=== PATIENT | male | born 1960 | race Caucasian/White ===

== ENCOUNTER 2019-12-11 15:26 | Emergency (ER) | payer OTHER, SELFPAY ==
[2019-12-11 15:27] VITALS: BP 133/76; PULSE 96; RESP 24; TEMP 36.4; O2SAT 96; BMI 33.4
--- NOTE | 2019-12-11 16:03 | CT_ITS ---
STUDY: CT MAXILLOFACIAL SINUSES REASON FOR EXAM: Male, 59 years old. SOB, COUGH, CHRONIC SINUSITIS,SINUS SURGERY X 3 RADIATION DOSAGE (If Supplied By Facility): CTDIvol = ( 33.06 ) mGy, DLP = ( 796.66 ) mGycm TECHNIQUE: The patient was scanned in a multi detector CT scanner. High resolution axial imaging was performed without the administration of intravenous contrast material. Sagittal and coronal images were reconstructed. Individualized dose optimization techniques were used for this CT. COMPARISON: None. FINDINGS: FRONTAL SINUSES: Normal development, near complete consolidation. ETHMOIDAL SINUSES: Extensive ethmoidectomies. Extensive opacification. MAXILLARY SINUSES: Bilateral medial antrectomies and bilateral anterior wall ostomies. Extensive mucosal thickening. SPHENOIDAL SINUSES: Marked mucosal thickening. There has been bilateral resection of the superior and middle turbinates. There is prominent soft tissue density filling most of the nasal passages. The visualized osseous structures are normal. The visualized bilateral orbital contents are normal. CT/Sinus/Facial Bone IMPRESSION: Extensive bilateral postsurgical changes of the ethmoids and maxillary sinuses. Marked diffuse mucosal thickening throughout the sinuses without air-fluid levels. Electronically Signed: Abelardo Brooks MD at 17:10 EDT , Service support ,
[2019-12-11 16:15] VITALS: PULSE 86; RESP 20
[2019-12-11] MEDS: Ipratropium/Albuterol Sulfate 3 ML AMPUL.NEB INHALATION (16:15)
[2019-12-11] MEDS: Albuterol 2.5 MG/3 ML VIAL.NEB. INHALATION ×2 (16:15→17:39)
[2019-12-11] MEDS: predniSONE 20 MG Tablet 60 MG PO (16:18)
[2019-12-11 16:40] LABS: Absolute Lymphocyte Count 1.64 X10^3/uL (0.83-4.51); Absolute Neutrophil Count 5.8 X10^3/uL (2.0-7.7); Basophil# 0.03 X10^3/uL; Basophil% 0.4 % (0-1); Eosinophil# 0.16 X10^3/uL; Eosinophils% 1.9 % (0-5); Hematocrit 40.1 % (40-54); Hemoglobin 13.1 g/dL (13.0-16.5); Lymphocyte # 1.64 X10^3/ul (4.0); Lymphocyte % 19.9 % (19-41); Mean Corp Hgb Conc 32.7 g/dL (32-36); Mean Corpuscular Hgb 31.9 pg (27.0-32.0); Mean Corpuscular Volume 97.6 fL (80-94); Mean Platelet Vol. 9.9 fl (6.2-12.0); Monocyte# 0.62 X10^3/uL; Monocyte% 7.5 % (0-10); NRBC Flagged by Analyzer 0 % (0-5); Neutrophil # 5.76 X10^3/uL (2.7-7.7); Neutrophil % 69.9 % (47-70); Platelet Count 248 K/mm3 (150-450); RBC Distribution Width CV 12.6 % (11.6-14.6); Red Blood Count 4.11 M/mm3 (4.6-6.2); White Blood Count 8.2 K/mm3 (4.4-11.0)
--- NOTE | 2019-12-11 16:40 | RAD_ITS ---
STUDY: X-RAY CHEST REASON FOR EXAM: Male, 59 years old. cough,wheezing,hemoptysis TECHNIQUE: Frontal and lateral views of the chest. COMPARISON: None. FINDINGS: There is hyperinflation of the lungs consistent with chronic obstructive lung disease (COPD). No infiltrates or effusions. There is no demonstrated pleural abnormality. Normal size heart. Normal mediastinum and luisa. Normal visualized pulmonary arteries. Normal visualized aortic arch and descending thoracic aorta. Normal visualized thoracic spine. Normal visualized ribs, clavicles, and shoulders. There is no demonstrated abnormality of the visualized soft tissue structures of the upper abdomen. RAD/Chest PA and Lateral IMPRESSION: There are findings consistent with COPD. There is no evidence of acute chest disease. Electronically Signed: Abelardo Brooks MD at 17:11 EDT , Service support ,
[2019-12-11 17:02] LABS: Anion Gap 7 (5-15); BUN 21 mg/dL (7-18); BUN/Creat Ratio 14.2 RATIO (10-20); Calcium,Total 8.8 mg/dL (8.5-10.1); Chloride 101 mmol/L (98-107); Creatinine, Serum 1.48 mg/dL (0.70-1.30); EST Glomerular Filtration Rate 52 mL/min (>60); Est Glom Filt Rate - Afr Amer 62 mL/min (>60); Estimated Creatinine Clearance 51.99 ml/min; Glucose 128 mg/dL (74-106); Potassium 5.4 mmol/L (3.5-5.1); Sodium Level 136 mmol/L (136-145)
--- NOTE | 2019-12-11 17:20 | ED.DCSUM_ITS ---
History of Present Illness Chief Complaint: Shortness of Breath Informant: Patient, Significant Other Onset: Weeks Context: Sudden Onset Timing: Continuous, Waxes and wanes Quality: Shortness of breath, wheezing, hemoptysis, chronic sinus infection Location: Upper respiratory Current Severity: Mild Maximum Severity: Moderate Worsened by: Exertion Relieved by: Nothing Associated Symptoms: Chills Narrative: Patient is a 59-year-old male who has history of COPD with bronchospasm, reported chronic sinusitis who presents with pain by his left brow. He denies headache. He denies double vision, blurred vision loss of vision. He denies photophobia. Denies neck pain or neck stiffness. He denies rhinorrhea, congestion or postnasal drainage. He denies sore throat. Denies change in smell or taste. The cough has been productive of white-colored sputum for approximate 3 months. Occasionally he notes blood in his sputum. He denies history of PE or DVT. He denies leg pain, swelling discoloration. He denies anginal equivalent symptoms. He denies GI symptoms. He is not on an anticoagulant. Prior similar symptoms: Yes Recent Illness/Hospitalization: Yes - Past Medical History (1) History of COPD Status: Chronic (2) History of nasal polyp Status: Acute (3) History of diverticulosis Status: Acute (4) History of gout Status: Acute (5) History of hypertension Status: Acute Past Medical History - Allergies and Home Meds Allergies/Adverse Reactions: Allergies aspirin Allergy (Verified 12/11/19 15:27) Anaphylaxis Cephalosporins Allergy (Verified 12/11/19 15:27) Other nitroglycerin Allergy (Verified 12/11/19 15:27) Other Primary Care Physician: Christine Almanzar NP-C [Primary Care Provider] - Prior records reviewed: Yes Surgical History: noncontributory Lives: Spouse/ Significant Other Smoking Status: Former smoker Alcohol: Rare Drugs: None Review of Systems General: Reports: Chills. Denies: Fever, Malaise, Subjective Eyes: Reports: - - Denies photophobia. Denies: Visual changes - bilaterally, Blurred Vision - bilaterally, Diplopia ENT: Reports: - - Sinusitis with pain over left frontal sinus. Denies: Bilateral ear pain, Rhinorrhea, Sore throat Cardiovascular: Denies: Chest pain, Palpitations Respiratory: Reports: Dyspnea, Cough, Sputum, Dyspnea on exertion. Denies: Orthopnea, Paroxysmal nocturnal dyspnea Gastrointestinal: Denies: Abdominal pain, Nausea, Vomiting, Diarrhea, Melena, Hematochezia Genitourinary: Denies: Dysuria, Hematuria, Frequency Musculoskeletal: Denies: Myalgias, Arthralgias, Neck pain, Back pain, Swelling, Extremity Pain Skin: Denies: Rash, Wounds Neurological: Denies: Headache, Weakness, Numbness Hematologic: Denies: Easy bruising, Easy bleeding Physical Exam Vital Signs/Narrative: Vital Signs Temp Pulse Resp BP Pulse Ox 12/11/19 16:15 86 20 H 12/11/19 15:27 97.6 F L 96 24 H 133/76 H 96 Inital Vital Signs reviewed: Yes General: Well nourished, Well developed, No Acute Distress Head: Normocephalic, Atraumatic Eyes: Perrl, EOMI ENT: Moist mucous membranes, No rhinorrhea, TM's clear, Sinus tenderness - Left frontal sinus, - - Nasal mucosa appears pale and sow. Neck: Supple, Nontender Cardiovascular: Regular rate, Regular rhythm, No murmurs, Normal S1, Normal S2 Respiratory: No distress, CTA bilaterally, Chest nontender Abdomen: Soft, Nontender, Nondistended, Normal bowel sounds Back: Nontender, Normal Inspection Extremities: Nontender, No edema. Negative for: Tenderness Skin: Normal color, No rash, No Trauma. Negative for: Cyanosis, Diaphoresis, Jaundice Neurological: Alert, Oriented x3, Cranial nerves II-XII grossly intact, Normal Strength, Normal Sensation Psychological: Normal affect, Normal Mood Diagnostic/Tx/Re-eval Chest X-Ray - ED: 2 View, Read by ED Physician, Normal, Heart, Mediastinum, Bony Structures, No Acute Disease, Chronic Changes, - - Slight hyper aeration and chronic changes due to COPD. Impressions Facial/Sinus 12/11/19 16:03 IMPRESSION: Extensive bilateral postsurgical changes of the ethmoids and maxillary sinuses. Marked diffuse mucosal thickening throughout the sinuses without air-fluid levels. Electronically Signed: Abelardo Brooks MD at 17:10 EDT , Service support , Chest X-Ray 12/11/19 16:40 IMPRESSION: There are findings consistent with COPD. There is no evidence of acute chest disease. Electronically Signed: Abelardo Brooks MD at 17:11 EDT , Service support , 12/11/19 16:03 CT Sinus [Sinus/Facial Bone] [CT] Stat 12/11/19 16:40 Chest PA and Lateral [RAD] Stat Laboratory Results 12/11/19 12/11/19 16:20 16:20 WBC 8.2 RBC 4.11 L Hgb 13.1 Hct 40.1 MCV 97.6 H MCH 31.9 MCHC 32.7 RDW Std Deviation 45.0 H RDW Coeff of Kari 12.6 Plt Count 248 MPV 9.9 Immature Gran % (Auto) 0.400 Neut % (Auto) 69.9 Lymph % (Auto) 19.9 Petroleum % (Auto) 7.5 Eos % (Auto) 1.9 Baso % (Auto) 0.4 Absolute Neuts (auto) 5.8 Absolute Lymphs (auto) 1.64 Nucleated RBC % 0 Sodium 136 Potassium 5.4 H Chloride 101 Carbon Dioxide 28.0 Anion Gap 7 BUN 21 H Creatinine 1.48 H Estim Creat Clear Calc 51.99 Est GFR (MDRD) Af Amer 62 Est GFR (MDRD) Non-Af 52 L BUN/Creatinine Ratio 14.2 Glucose 128 H Calcium 8.8 Patient was reassessed. He is no longer wheezing. He was informed he does not have sinusitis. He was informed it is my medical opinion that he has allergic rhinitis. ED Disposition - Plan for ED Patient: Disposition: Home or Assisted Living Diagnosis: Asthma exacerbation in COPD, Allergic rhinitis Prescriptions: Prednisone [Deltasone] 40 mg PO DAILY #10 tab Transmission Status: Pending to [facility] Fluticasone 0.05% [Flonase Nasal [place]] 1 spray NASAL BID #1 bottle Transmission Status: Pending to [facility] Referrals: Christine Almanzar NP-C [Primary Care Provider] - 3-5 Days if not improving
--- NOTE | 2019-12-11 18:48 | ED.VISSUMM ---
- ER Visit Summary Date of Service: 12/11/19 Chief Complaint: [] History of Present Illness: The patient is a 59 M [] Physical Examination: [] Test Results: [] Emergency Department Course and Treatment: [] Treatment Plan: [] Disposition: [] Impression: [] This note was generated with [employer] dictation software. It may contain incorrect words, spelling, and punctuation that were not noted in review of the chart prior to signing ED Disposition - Plan for ED Patient: Disposition: Home or Assisted Living Diagnosis: Asthma exacerbation in COPD, Allergic rhinitis Instructions: ED COPD Flare, ED NASAL ALLERGY Prescriptions: Prednisone [Deltasone] 40 mg PO DAILY #10 tab Transmission Status: Sent to [facility] Fluticasone 0.05% [Flonase Nasal [place]] 1 spray NASAL BID #1 bottle Transmission Status: Sent to [facility] Referrals: Christine Almanzar NP-C [Primary Care Provider] - 3-5 Days if not improving
[2019-12-11 18:58] VITALS: BP 127/69; PULSE 71; RESP 18; O2SAT 99
== END 2019-12-11 18:59 | disposition home or self-care (01) ==
PROVIDERS: Emergency Provider Emergency Medicine; PCP Nurse Practitioner Family
DX: J45.901 Unspecified asthma with (acute) exacerbation (principal); J44.1 Chronic obstructive pulmonary disease with (acute) exacerbation; R04.2 Hemoptysis; I10 Essential (primary) hypertension; M10.9 Gout, unspecified; Z79.899 Other long term (current) drug therapy; Z87.891 Personal history of nicotine dependence
CPT/HCPCS: 70486; 71046; 80048; 85025; 94640; 99285; A4216

== ENCOUNTER → 2020-12-17 14:53 | Outpatient (CLI) | payer OTHER, SELFPAY ==
--- NOTE | 2020-12-17 14:56 | RAD_ITS ---
STUDY: X-RAY CHEST REASON FOR EXAM: Male, 60 years old. SOB TECHNIQUE: PA and lateral views of the chest. COMPARISON: Comparison is made with prior study dated 12/11/2019. FINDINGS: There is hyperinflation of the lungs consistent with chronic obstructive lung disease (COPD). There is no demonstrated pleural abnormality. Normal size heart. Normal mediastinum and luisa. Normal visualized pulmonary arteries. Normal visualized aortic arch and descending thoracic aorta. There is demineralization of the osseous structures. Normal visualized ribs, clavicles, and shoulders. There is no demonstrated abnormality of the visualized soft tissue structures of the upper abdomen. RAD/Chest PA and Lateral IMPRESSION: Hyperinflation. The lungs are clear. Electronically Signed: Ceasar Rodriguez MD at 15:25 EDT , Service support ,
[2020-12-17 17:25] LABS: Absolute Neutrophil Count 4.4 X10^3/uL (2.0-7.7); Basophil# 0.06 X10^3/uL; Basophil% 0.9 % (0-1); Eosinophil# 0.18 X10^3/uL; Eosinophils% 2.6 % (0-5); Hematocrit 40.3 % (40-54); Hemoglobin 13.7 g/dL (13.0-16.5); Lymphocyte % 25.8 % (19-41); Mean Corpuscular Hgb 32.1 pg (27.0-32.0); Mean Corpuscular Volume 94.4 fL (80-94); Monocyte# 0.58 X10^3/uL; Monocyte% 8.3 % (0-10); NRBC Flagged by Analyzer 0 % (0-5); Neutrophil # 4.35 X10^3/uL (2.7-7.7); Neutrophil % 62.1 % (47-70); Platelet Count 242 K/mm3 (150-450); RBC Distribution Width CV 12.9 % (11.6-14.6); RBC Distribution Width SD 43.8 fl (35.1-43.9); Red Blood Count 4.27 M/mm3 (4.6-6.2)
[2020-12-17 17:46] LABS: ALB/GLOB Ratio 1.2 RATIO (0.9-2.4); AST(SGOT) 21 U/L (15-37); Alanine Aminotransfer ALT/SGPT 33 U/L (16-61); Albumin, Serum 3.9 g/dL (3.2-5.0); Alkaline Phosphatase 75 U/L (45-117); Anion Gap 7 (5-15); BUN 16 mg/dL (7-18); BUN/Creat Ratio 11.8 RATIO (10-20); Calcium,Total 8.7 mg/dL (8.5-10.1); Chloride 103 mmol/L (98-107); Cholesterol 181 mg/dL (200); Creatinine, Serum 1.36 mg/dL (0.70-1.30); EST Glomerular Filtration Rate 57 mL/min (>60); Est Glom Filt Rate - Afr Amer 69 mL/min (>60); Globulin 3.3 g/dL (2.2-4.2); Glucose 99 mg/dL (74-106); High Density Lipoprotein 58 mg/dL; Potassium 4.2 mmol/L (3.5-5.1); Protein, Total 7.2 g/dL (6.4-8.2); Sodium Level 139 mmol/L (136-145); T4 Free Direct 0.93 ng/dL (0.76-1.46); Thyroid Stim Hormone (TSH) 0.85 uIU/mL (0.358-3.74); Triglycerides 469 mg/dL; Uric Acid 6.6 mg/dL (3.5-7.2)
[2020-12-17 18:00] LABS: Microalbumin:Creatinine Ratio 74.8 mg/g CRE (<30 mg/g CRE)
[2020-12-19 08:53] LABS: Thyroid Peroxidase AB < 9 IU/mL (0-34)
[2020-12-20 09:26] LABS: Hepatitis C Antibody Non-Reactive (Nonreactive)
== END ==
PROVIDERS: PCP Family Medicine; Referring Provider Family Medicine; Visit Provider Family Medicine
DX: R06.02 Shortness of breath (principal); E04.1 Nontoxic single thyroid nodule; E78.5 Hyperlipidemia, unspecified; I10 Essential (primary) hypertension; M10.9 Gout, unspecified
CPT/HCPCS: 36415; 71046; 80053; 80061; 82043; 82570; 84439; 84443; 84550; 85025; 86376; 86803

== ENCOUNTER → 2020-12-23 08:04 | Outpatient (CLI) | payer OTHER, SELFPAY ==
--- NOTE | 2020-12-23 09:06 | US_ITS ---
STUDY: THYROID ULTRASOUND REASON FOR EXAM: Male, 60 years old. Palpably enlarged thyroid TECHNIQUE: Ultrasound evaluation of the thyroid was performed with real-time and static sow-scale imaging. COMPARISON: None. FINDINGS: RIGHT LOBE: The right lobe of the thyroid gland measures 4.8 x 2.4 x 2.0 cm. There is a homogeneous echotexture. There are no demonstrated solid, cystic or complex lesions. LEFT LOBE: The left lobe of the thyroid gland measures 4.1 x 2.0 x 1.9 cm. There is a homogeneous echotexture. There are no demonstrated solid, cystic or complex lesions. ISTHMUS: The isthmus measures 6 mm. The regional lymph nodes are normal. US/Thyroid IMPRESSION: Borderline enlarged right thyroid lobe, no sonographic evidence of suspicious solid nodule or cyst Electronically Signed: Francois Lomax MD at 11:01 EDT , Service support ,
--- NOTE | 2020-12-23 14:20 | PFTCOMP_ITS ---
COMPLETE PULMONARY FUNCTION TEST INTERPRETATION Brief HPI: Patient is a 60 year old male, currently under the care of Dr. Arita, who presents to [facility] for complete pulmonary function tests secondary to diagnosis of asthma. Respiratory therapist reports good effort and reproducible results. Interpretation: Forced expiration spirometry shows a severe large airways obstructive ventilatory defect with an FEV1 of 47% predicted. There is a significant bronchodilator response in FVC by strict ATS criteria. Spirograms are of good quality and plateau slowly, indicating slowly emptying areas of the lungs. The respiratory flow volume loop shows decreased expiratory flow rates at all lung volumes consistent with airway obstruction. Lung volumes by body plethysmography show a decreased total lung capacity at 4.92 L, 80% predicted. All other lung volumes are reduced symmetrically. Diffusion capacity by carbon monoxide is normal at 107% predicted. The airway resistance is elevated. No previous pulmonary function tests were available for review. Impression: Partially reversible severe large airways mixed ventilatory defect with preserved diffusion capacity.
== END ==
PROVIDERS: PCP Family Medicine; Referring Provider Family Medicine; Visit Provider Family Medicine
DX: E04.1 Nontoxic single thyroid nodule (principal); J45.909 Unspecified asthma, uncomplicated
CPT/HCPCS: 76536; 94060; 94726; 94729

== ENCOUNTER → 2020-12-27 12:52 | Outpatient (CLI) | payer OTHER, SELFPAY ==
--- NOTE | 2020-12-27 12:58 | ECHOD_ITS ---
Reason For Study: SOB Procedure This was a 2D Doppler, Color Flow transthoracic echocardiogram. Exam performed in department. Left Ventricle Normal LV size. Left ventricular systolic function is normal. The estimated ejection fraction is 60 %. Normal diastology for age. No regional wall motion abnormalities noted. Right Ventricle Normal RV size. Normal systolic function. Atria The left atrium is mildly enlarged. Normal right atrium. Mitral Valve Normal mitral valve. Tricuspid Valve Normal tricuspid valve. Mild tricuspid valve insufficiency. Pulmonary artery systolic pressure is 33 mmHg. Aortic Valve Normal aortic valve. Trisinus/trileaflet aortic valve. Pulmonic Valve Normal pulmonic valve. Great Vessels Normal aortic root. The pulmonary artery is normal size. Normal inferior vena cava. Pericardium/Pleural No pericardial effusion. MMode/2D Measurements & Calculations LVIDd: 4.9 cm IVSd: 1.0 cm Ao root diam: 3.3 cm LVIDs: 2.9 cm LVPWd: 1.2 cm RVDd: 3.0 cm FS: 40.2 % LAV(MOD-bp): 65.7 ml LVAd ap4: 28.9 cm2 SV(MOD-sp4): 51.0 ml LAV(MOD-bp) Indexed: 30.9 ml/m2 LVLd ap4: 8.7 cm LAV(MOD-sp2): 46.5 ml EDV(MOD-sp4): 83.7 ml LAV(MOD-sp4): 72.6 ml EDV(sp4-el): 81.6 ml LVAs ap4: 16.2 cm2 LVLs ap4: 7.4 cm ESV(MOD-sp4): 32.7 ml ESV(sp4-el): 30.0 ml EF(MOD-sp4): 61.0 % EF(sp4-el): 63.2 % SV(sp4-el): 51.6 ml LA A4 area: 24.7 cm2 LA dimension(2D): 4.6 cm RA A4 area: 12.0 cm2 Doppler Measurements & Calculations MV E max siddharth: 82.7 cm/sec Lat Peak E' Siddharth: 9.0 cm/sec Med Peak E' Siddharth: 9.6 cm/sec MV A max siddharth: 56.2 cm/sec E/E' lat: 9.2 E/E' med: 8.6 MV E/A: 1.5 Ao V2 max: 148.2 cm/sec LV V1 max: 120.8 cm/sec PA V2 max: 98.1 cm/sec Ao max P.8 mmHg LV V1 max P.8 mmHg Ao V2 mean: 103.6 cm/sec Ao mean P.7 mmHg Ao V2 VTI: 29.1 cm TR max siddharth: 270.1 cm/sec TR max P.2 mmHg ECHO/Echo Complete Interpretation Summary Normal LV size. Left ventricular systolic function is normal. The estimated ejection fraction is 60 %. Normal diastology for age. Mild tricuspid valve insufficiency. Pulmonary artery systolic pressure is 33 mmHg. Ordering Physician: Justin Arita Referring Physician: Justin Arita Performed By: Gabriela Newton RDCS, RVT
== END ==
PROVIDERS: PCP Family Medicine; Referring Provider Family Medicine; Visit Provider Family Medicine
DX: R06.02 Shortness of breath (principal)
CPT/HCPCS: 93306

== ENCOUNTER → 2021-01-19 12:32 | Outpatient (CLI) | payer OTHER, SELFPAY ==
[2021-01-19 15:47] LABS: Anion Gap 4 (5-15); BUN 17 mg/dL (7-18); BUN/Creat Ratio 13.4 RATIO (10-20); Chloride 101 mmol/L (98-107); Creatinine, Serum 1.27 mg/dL (0.70-1.30); EST Glomerular Filtration Rate 61 mL/min (>60); Est Glom Filt Rate - Afr Amer 74 mL/min (>60); Glucose 109 mg/dL (74-106); Potassium 4.2 mmol/L (3.5-5.1); Sodium Level 135 mmol/L (136-145)
== END ==
PROVIDERS: PCP Family Medicine; Referring Provider Family Medicine; Visit Provider Family Medicine
DX: R94.4 Abnormal results of kidney function studies (principal)
CPT/HCPCS: 36415; 80048

== ENCOUNTER → 2021-06-29 14:03 | Outpatient (CLI) | payer OTHER, SELFPAY ==
[2021-06-29 14:20] LABS: Absolute Lymphocyte Count 1.52 X10^3/uL (0.83-4.51); Absolute Neutrophil Count 4.5 X10^3/uL (2.0-7.7); Basophil# 0.03 X10^3/uL; Basophil% 0.4 % (0-1); Eosinophil# 0.27 X10^3/uL; Eosinophils% 3.9 % (0-5); Hemoglobin 13.1 g/dL (13.0-16.5); Lymphocyte # 1.52 X10^3/ul (0.83-4.51); Lymphocyte % 22.2 % (19-41); Mean Corp Hgb Conc 34.5 g/dL (32-36); Mean Corpuscular Hgb 32.4 pg (27.0-32.0); Mean Corpuscular Volume 94.1 fL (80-94); Mean Platelet Vol. 9.2 fl (6.2-12.0); Monocyte% 7.3 % (0-10); NRBC Flagged by Analyzer 0 % (0-5); Neutrophil % 65.9 % (47-70); Platelet Count 239 K/mm3 (150-450); RBC Distribution Width CV 12.4 % (11.6-14.6); RBC Distribution Width SD 43.3 fl (35.1-43.9); Red Blood Count 4.04 M/mm3 (4.6-6.2); White Blood Count 6.8 K/mm3 (4.4-11.0)
[2021-07-04 22:06] LABS: Alternaria alternata <0.10 kU/L (Class 0); Bermuda Grass <0.10 kU/L (Class 0); Bluegrass, Kentucky <0.10 kU/L (Class 0); Cat Hair/Dander, Standard <0.10 kU/L (Class 0); D farinae Mite <0.10 kU/L (Class 0); D pteronyssinus <0.10 kU/L (Class 0); Dog Epithelia <0.10 kU/L (Class 0); Elm, American White <0.10 kU/L (Class 0); Oak, White <0.10 kU/L (Class 0); Plantain, English <0.10 kU/L (Class 0); Ragweed, Short/Common <0.10 kU/L (Class 0)
[2021-07-05 17:45] LABS: Mouse Urine <0.10 kU/L (Class 0)
[2021-07-06 02:06] LABS: Aspirgillus flavus Negative (Neg:<1:1); Aspirgillus fumigatus Negative (Neg:<1:1); Aspirgillus niger Negative (Neg:<1:1)
[2021-07-06 14:09] LABS: Immunoglobulin E 6 IU/mL (6-495)
== END ==
PROVIDERS: PCP Family Medicine; Referring Provider Internal Medicine Critical Care Medicine; Visit Provider Internal Medicine Critical Care Medicine
DX: J45.909 Unspecified asthma, uncomplicated (principal)
CPT/HCPCS: 36415; 82785; 85025; 86003; 86606

== ENCOUNTER 2021-08-08 20:00 | Outpatient (CLI) | payer OTHER, SELFPAY | END 2021-08-08 23:59 | disposition home or self-care (01) | PROVIDERS: PCP Family Medicine; Visit Provider Internal Medicine Critical Care Medicine | DX: G47.33 Obstructive sleep apnea (adult) (pediatric) (principal) | CPT/HCPCS: 95811 ==

== ENCOUNTER 2021-08-09 10:31 | Outpatient (CLI) | payer OTHER, SELFPAY ==
[2021-08-09 10:37] LABS: Bacteria 0 SEEN /hpf (None Seen); Mucous, Urine 0 SEEN /hpf (<or=2+); Red Blood Cells-Urine 0 SEEN /hpf (0-5); Squamous Epithelial Cells - UA 0 SEEN /hpf (0-5); White Blood Cells 0 SEEN /hpf (0-5)
[2021-08-09 12:12] LABS: Color, Urine Yellow (Yellow); Glucose, Dipstick Normal (Normal); Ketone-Dipstick Negative (Negative); Leukocyte Esterase-Dipstick Negative /ul (Negative); Nitrite-Dipstick Negative (Negative); Occult Blood-Urine Negative /ul (Negative); Protein-Dipstick 15 mg/dl (Negative); Urine Bilirubin Dipstick Negative (Negative); Urine Clarity Clear (Clear); Urine Urobilinogen Normal (Normal)
[2021-08-09 12:14] LABS: Absolute Lymphocyte Count 1.88 X10^3/uL (0.83-4.51); Absolute Neutrophil Count 3.4 X10^3/uL (2.0-7.7); Basophil# 0.04 X10^3/uL; Basophil% 0.7 % (0-1); Eosinophil# 0.32 X10^3/uL; Eosinophils% 5.3 % (0-5); Hematocrit 38.3 % (40-54); Hemoglobin 13.4 g/dL (13.0-16.5); Lymphocyte # 1.88 X10^3/ul (0.83-4.51); Lymphocyte % 30.9 % (19-41); Mean Corpuscular Hgb 32.8 pg (27.0-32.0); Mean Corpuscular Volume 93.9 fL (80-94); Mean Platelet Vol. 9.6 fl (6.2-12.0); Monocyte# 0.46 X10^3/uL; Monocyte% 7.6 % (0-10); NRBC Flagged by Analyzer 0 % (0-5); Neutrophil # 3.36 X10^3/uL (2.7-7.7); Neutrophil % 55.2 % (47-70); Platelet Count 214 K/mm3 (150-450); RBC Distribution Width CV 12.2 % (11.6-14.6); RBC Distribution Width SD 42.5 fl (35.1-43.9); Red Blood Count 4.08 M/mm3 (4.6-6.2); White Blood Count 6.1 K/mm3 (4.4-11.0)
[2021-08-09 13:41] LABS: ALB/GLOB Ratio 1.1 RATIO (0.9-2.4); AST(SGOT) 19 U/L (15-37); Alanine Aminotransfer ALT/SGPT 35 U/L (16-61); Albumin, Serum 3.7 g/dL (3.2-5.0); Alkaline Phosphatase 70 U/L (45-117); Anion Gap 8 (5-15); BUN 18 mg/dL (7-18); BUN/Creat Ratio 15.1 RATIO (10-20); Chloride 102 mmol/L (98-107); Cholesterol 144 mg/dL (200); Creatinine, Serum 1.19 mg/dL (0.70-1.30); EST Glomerular Filtration Rate 66 mL/min (>60); Est Glom Filt Rate - Afr Amer 80 mL/min (>60); Globulin 3.4 g/dL (2.2-4.2); Glucose 105 mg/dL (74-106); High Density Lipoprotein 50 mg/dL; Protein, Total 7.1 g/dL (6.4-8.2); Sodium Level 137 mmol/L (136-145); Thyroid Stim Hormone (TSH) 1.48 uIU/mL (0.358-3.74); Triglycerides 300 mg/dL; Uric Acid 5.6 mg/dL (3.5-7.2); Very Low Density Lipoprotein 60 mg/dL (5-40)
== END 2021-08-09 23:59 | disposition home or self-care (01) ==
LOC: MTLAB 10:32
PROVIDERS: PCP Family Medicine; Referring Provider Family Medicine; Visit Provider Family Medicine
DX: E78.5 Hyperlipidemia, unspecified (principal); M10.9 Gout, unspecified; I10 Essential (primary) hypertension
CPT/HCPCS: 36415; 80053; 80061; 81001; 84443; 84550; 85025

== ENCOUNTER 2021-08-29 12:59 | Outpatient (CLI) | payer OTHER, SELFPAY ==
--- NOTE | 2021-08-29 14:18 | PFTCOMP ---
COMPLETE PULMONARY FUNCTION TEST INTERPRETATION Brief HPI: Patient is a 61 year old male, currently under the care of myself, who presents to [facility] for complete pulmonary function tests secondary to diagnosis of asthma. Respiratory therapist reports good effort and reproducible results. Interpretation: Forced expiration spirometry shows a moderately severe large airways obstructive ventilatory defect with an FEV1 of 53% predicted. There is no significant bronchodilator response by strict ATS criteria. Spirograms are of good quality and plateau slowly, indicating slowly emptying areas of the lungs. The respiratory flow volume loop shows decreased expiratory flow rates at all lung volumes consistent with airway obstruction. Lung volumes by body plethysmography show a normal total lung capacity at 5.78 L, 94% predicted. FRC and RV are elevated out of proportion. Lung volume measurements are consistent with air-trapping. Diffusion capacity by carbon monoxide is normal at 97% predicted. The airway resistance is elevated. Compared to previous pulmonary function tests from 12/23/2020, there has been mild improvement in FEV1, but worsening air trapping. Impression: Irreversible moderately severe large airways obstructive ventilatory defect with relatively preserved diffusing capacity, resulting in air trapping.
== END 2021-08-29 23:59 | disposition home or self-care (01) ==
LOC: PSN 12:59
PROVIDERS: PCP Family Medicine; Referring Provider Internal Medicine Critical Care Medicine; Visit Provider Internal Medicine Critical Care Medicine
DX: J45.909 Unspecified asthma, uncomplicated (principal)
CPT/HCPCS: 94060; 94726; 94729

== ENCOUNTER 2021-09-08 08:04 | Outpatient (CLI) | payer OTHER, SELFPAY ==
[2021-09-08 08:15] VITALS: PULSE 100; PULSE 102; PULSE 83; PULSE 87; PULSE 91; O2SAT 92; O2SAT 93; O2SAT 94; O2SAT 95
--- NOTE | 2021-09-09 13:25 | PCM.PSN.6M ---
PSN 6 Minute Walk Test 6 Minute Walk Test 6 Minute Walk Test: 6 Minute Walk Test PSN:6-Minute Walk Test Start: 09/08/21 08:28 Freq: Status: Active Protocol: RESP.6MINW Document 09/08/21 08:15 EW (Rec: 09/08/21 08:31 EW [id number]) 6 Minute Walk Test Date Performed 09/08/21 Time Performed 08:15 Height 5 ft 8 in Weight: 99.79 kg Weight in Pounds 220.[address]: Link Dotson Assistive device used: None Pre-test Oxygen Delivery Method Room Air Pulse Ox (%) 94 Pulse Rate (60-100 beats/min) 83 Dyspnea Nando Scale (0-10) 1 Exertion Nando Scale (6-20) 6 1st minute Oxygen Delivery Method Room Air Pulse Ox (%) 94 Pulse Rate (60-100 beats/min) 91 2nd minute Oxygen Delivery Method Room Air Pulse Ox (%) 93 Pulse Rate (60-100 beats/min) 87 3rd minute Oxygen Delivery Method Room Air Pulse Ox (%) 92 Pulse Rate (60-100 beats/min) 102 H 4th minute Oxygen Delivery Method Room Air Pulse Ox (%) 92 Pulse Rate (60-100 beats/min) 100 5th minute Oxygen Delivery Method Room Air Pulse Ox (%) 93 Pulse Rate (60-100 beats/min) 100 6th minute Oxygen Delivery Method Room Air Pulse Ox (%) 93 Pulse Rate (60-100 beats/min) 102 H Post-test Oxygen Delivery Method Room Air Pulse Ox (%) 95 Pulse Rate (60-100 beats/min) 87 Dyspnea Nando Scale (0-10) 11 Exertion Nando Scale (6-20) 2 Full Laps Walked 20 Partial Lap, Number of Tiles Walked 0 Total Distance Walked (ft) 1180 Interpretation Interpretation: The patient ambulated 1180 feet over the course of 6 minutes beginning on room air without assistive devices. Pretesting oxygen saturation was noted to be 94% on room air. With ambulation, the dewayne oxygen saturation was 92%. There was no significant exertional oxygen desaturation. Recommendations Recommendations: There is no indication for the use of supplemental oxygen at this time.
== END 2021-09-08 23:59 | disposition home or self-care (01) ==
LOC: PSN 08:05
PROVIDERS: PCP Family Medicine; Referring Provider Internal Medicine Critical Care Medicine; Visit Provider Internal Medicine Critical Care Medicine
DX: J45.909 Unspecified asthma, uncomplicated (principal)
CPT/HCPCS: 94618

== ENCOUNTER → 2021-10-25 | Outpatient (CLI) | payer OTHER, SELFPAY ==
[2021-10-25 18:25] LABS: ALB/GLOB Ratio 1.1 RATIO (0.9-2.4); AST(SGOT) 21 U/L (15-37); Alanine Aminotransfer ALT/SGPT 36 U/L (16-61); Albumin, Serum 3.8 g/dL (3.2-5.0); Alkaline Phosphatase 62 U/L (45-117); Anion Gap 6 (5-15); BUN 18 mg/dL (7-18); BUN/Creat Ratio 14.9 RATIO (10-20); Calcium,Total 8.3 mg/dL (8.5-10.1); Chloride 102 mmol/L (98-107); Creatinine, Serum 1.21 mg/dL (0.70-1.30); EST Glomerular Filtration Rate 65 mL/min (>60); Est Glom Filt Rate - Afr Amer 78 mL/min (>60); Globulin 3.4 g/dL (2.2-4.2); Glucose 99 mg/dL (74-106); Protein, Total 7.2 g/dL (6.4-8.2); Sodium Level 137 mmol/L (136-145)
[2021-10-25 18:35] LABS: Hemoglobin A1c 5.3 % (3.8-5.6)
== END | disposition home or self-care (01) ==
LOC: MTLAB 14:17
PROVIDERS: PCP Family Medicine; Referring Provider Family Medicine; Visit Provider Family Medicine
DX: R73.09 Other abnormal glucose (principal); Z12.5 Encounter for screening for malignant neoplasm of prostate
CPT/HCPCS: 36415; 80053; 83036; 84153; G0103

== ENCOUNTER → 2022-01-20 | Outpatient (CLI) | payer OTHER, SELFPAY ==
[2022-01-20 11:14] VITALS: BP 130/72; PULSE 77; RESP 16; TEMP 36.8; O2SAT 96; BMI 34.2
[2022-01-20] MEDS: Benralizumab 30 MG/ML Syringe SC (11:20)
[2022-01-20 11:48] VITALS: BP 153/80; PULSE 80; RESP 16; TEMP 36.6; O2SAT 96
== END | disposition home or self-care (01) ==
LOC: MEDOUTP 11:03
PROVIDERS: PCP Family Medicine; Referring Provider Nurse Practitioner Acute Care; Visit Provider Nurse Practitioner Acute Care
DX: J45.50 Severe persistent asthma, uncomplicated (principal)
CPT/HCPCS: 96372; J0517

== ENCOUNTER → 2022-01-23 | Outpatient (CLI) | payer OTHER, SELFPAY ==
[2022-01-23 16:55] LABS: EGFR FINGERSTICK > 60.0000 mL/min (>60)
== END | disposition home or self-care (01) ==
LOC: MRI 15:58
PROVIDERS: PCP Family Medicine; Referring Provider Urology; Visit Provider Urology
DX: Z00.00 Encounter for general adult medical examination without abnormal findings (principal)

== ENCOUNTER → 2022-02-02 | Outpatient (CLI) | payer OTHER, SELFPAY ==
--- NOTE | 2022-02-02 | IMM_PTH ---
PATIENT: HAWK ZAYAS LOC: [facility] U#:[id number] AGE/SX: 62/M ROOM: RE02/02/[address]: Dr. Donovan Carpio MD : 1960 BED: DIS: 02/02/2022 SPEC #: [id number] RECD: 02/06/22 12:48 STATUS: CRUZ REQ #: [id number] REID: 02/02/22 00:[address]: Donovan Carpio DEPT: IMMUNOHISTOCHEMISTRY RECD BY: Paula Wall ENTERED: 02/06/22 12:49 SP TYPE: IMMUNO OTHR DR: Dr. Justin Arita MD Tissues: D - PROSTATE LEFT Procedures: P40 (add) 34BE12 (initial) PHYSICIAN & INSTITUTION [place] [id number] SPECIMEN INFORMATION: Tissue Source: D - Left prostate, apex, core biopsy Clinical Info: Elevated PSA Specimen Number: [id number] CPT code: 30465, 33102 METHODOLOGY: Deparaffinized sections of prefer/formalin-fixed tissue or PAP/DQ stained slides are incubated with monoclonal/polyclonal antibodies/oligonucleotide probes. Localization is made via biotin free immunoperoxidase method. Appropriate controls are performed and reacted as expected. Results on target cell population are indicated in the following table: RESULTS: ANTIBODY / CLONE RESULT Block D P40 (BC28) negative 34BE12 (34BE12) negative These tests were developed and their performance characteristics determined by [facility]. They may not have been cleared or approved by the U.S. Food and Drug Administration. The FDA has determined that such clearance or approval is not necessary. The above immunohistochemical/dualISH markers are ordered and reviewed by the Pathologist. INTERPRETATION: Michael Left prostate, apex, core biopsy: Adenocarcinoma. SJ:elio 02/07/2022
--- NOTE | 2022-02-02 08:00 | PROSBIL_PTH ---
PATIENT: HAWK ZAYAS LOC: [facility] U#:[id number] AGE/SX: 62/M ROOM: RE02/02/[address]: Dr. Donovan Carpio MD : 1960 BED: DIS: 02/02/2022 SPEC #: [id number] RECD: 02/02/22 16:33 STATUS: CRUZ BHAT #: [id number] REID: 02/02/22 08:[address]: Donovan Carpio DEPT: SURGICAL PATHOLOGY RECD BY: Shanna French ENTERED: 02/03/22 08:19 SP TYPE: PROST BX INOCENCIO DR: Dr. Justin Arita MD Tissues: A - PROSTATE RIGHT B - PROSTATE RIGHT C - PROSTATE RIGHT D - PROSTATE LEFT E - PROSTATE LEFT F - PROSTATE LEFT Procedures: PROSTATE BX HEADER OPERATION: Prostate biopsy PRE-OP DIAGNOSIS: Elevated PSA TISSUE SUBMITTED: A - Right apex, B - Right mid, C - Right base, D - Left apex, E - Left mid, F - Left base MICROSCOPIC DIAGNOSIS A. Right prostate, apex, core biopsy: Prostatic tissue, negative for malignancy. B. Right prostate, mid, core biopsy: Prostatic tissue, negative for malignancy. C. Right prostate, base, core biopsy: Prostatic tissue, negative for malignancy. D. Left prostate, apex, core biopsy: Prostatic adenocarcinoma. [place] grade: 3+3=6 Number of cores involved: 1/1 Proportion of tissue involved: <5% Perineural invasion: Present, focal. Greatest tumor length: 0.2 cm, discontinuous. See comment. E. Left prostate, mid, core biopsy: Prostatic adenocarcinoma. [place] grade: 4+3=7 Number of cores involved: 2/2 Proportion of tissue involved: >95% Perineural invasion: Not identified. Greatest tumor length: 0.7 cm F. Left prostate, base, core biopsy: Prostatic adenocarcinoma. [place] grade: 4+3=7 Number of cores involved: 2/2 Proportion of tissue involved: >95% Perineural invasion: Present, focal. Greatest tumor length: 0.9 cm SJ:elio 02/06/2022 COMMENT D. Immunohistochemistry ([id number]) supports the above diagnosis. Case has been reviewed in consultation with Dr. Villa who concurs with the above diagnosis. IDC:AM MICROSCOPIC DESCRIPTION Slides are reviewed. GROSS DESCRIPTION A - Received is one container designated prostate, right apex. The specimen consists of one elongated fragment of light larson-white soft tissue measuring 1 cm in length and 0.1 cm in diameter. The specimen is totally submitted in one cassette. B - Received is one container designated prostate, right mid. The specimen consists of one elongated fragment of light larson-white soft tissue measuring 1.5 cm in length and 0.1 cm in diameter. The specimen is totally submitted in one cassette. C - Received is one container designated prostate, right base. The specimen consists of one elongated fragment of light larson-white soft tissue measuring 1.5 cm in length and 0.1 cm in diameter. The specimen is totally submitted in one cassette. D - Received is one container designated prostate, left apex. The specimen consists of one elongated fragment of light larson-white soft tissue measuring 1 cm in length and 0.1 cm in diameter. The specimen is totally submitted in one cassette. E - Received is one container designated prostate, left mid. The specimen consists of two elongated fragments of light larson-white soft tissue each measuring 1 cm in length and 0.1 cm in diameter. The specimen is totally submitted in one cassette. F - Received is one container designated prostate, left base. The specimen consists of two elongated fragments of light larson-white soft tissue each measuring 1 cm in length and 0.1 cm in diameter. The specimen is totally submitted in one cassette. / AM:elio 02/03/2022 TC:0 [facility]: [id number] [phone]
== END | disposition home or self-care (01) ==
LOC: LABSPEC 16:34
PROVIDERS: PCP Family Medicine; Referring Provider Urology; Visit Provider Urology
DX: R97.20 Elevated prostate specific antigen [PSA] (principal)
CPT/HCPCS: 88305; 88341; 88342; G0416

== ENCOUNTER → 2022-02-17 | Outpatient (CLI) | payer OTHER, SELFPAY ==
[2022-02-17 14:55] VITALS: BP 152/69; PULSE 85; RESP 16; TEMP 36.1; O2SAT 95; BMI 34.2
[2022-02-17] MEDS: Benralizumab 30 MG/ML Syringe SC (14:58)
== END | disposition home or self-care (01) ==
LOC: MEDOUTP 14:48
PROVIDERS: PCP Family Medicine; Referring Provider Nurse Practitioner Acute Care; Visit Provider Nurse Practitioner Acute Care
DX: J45.50 Severe persistent asthma, uncomplicated (principal)
CPT/HCPCS: 96372; J0517

== ENCOUNTER → 2022-03-21 | Outpatient (CLI) | payer OTHER, SELFPAY ==
[2022-03-21 15:55] LABS: Mucous, Urine 0 SEEN /hpf (<or=2+); Squamous Epithelial Cells - UA 0 SEEN /hpf (0-5); White Blood Cells 0 SEEN /hpf (0-5)
[2022-03-21 17:45] LABS: Absolute Lymphocyte Count 0.73 X10^3/uL (0.83-4.51); Absolute Neutrophil Count 7.6 X10^3/uL (2.0-7.7); Basophil# 0.01 X10^3/uL; Basophil% 0.1 % (0-1); Hematocrit 37.4 % (40-54); Hemoglobin 12.4 g/dL (13.0-16.5); Lymphocyte # 0.73 X10^3/ul (0.83-4.51); Lymphocyte % 8.4 % (19-41); Mean Corp Hgb Conc 33.2 g/dL (32-36); Mean Corpuscular Hgb 31.8 pg (27.0-32.0); Mean Corpuscular Volume 95.9 fL (80-94); Mean Platelet Vol. 9.8 fl (6.2-12.0); Monocyte# 0.24 X10^3/uL; Monocyte% 2.8 % (0-10); NRBC Flagged by Analyzer 0 % (0-5); Neutrophil # 7.62 X10^3/uL (2.7-7.7); Neutrophil % 87.8 % (47-70); Platelet Count 260 K/mm3 (150-450); RBC Distribution Width CV 12.9 % (11.6-14.6); RBC Distribution Width SD 45.1 fl (35.1-43.9); White Blood Count 8.7 K/mm3 (4.4-11.0)
[2022-03-21 17:50] LABS: Color, Urine Yellow (Yellow); Glucose, Dipstick Normal (Normal); Ketone-Dipstick 5 mg/dl (Negative); Leukocyte Esterase-Dipstick Negative /ul (Negative); Nitrite-Dipstick Negative (Negative); Occult Blood-Urine 10 /ul (Negative); Protein-Dipstick 15 mg/dl (Negative); Specific Gravity, Urine 1.015 (1.002-1.030); Urine Bilirubin Dipstick Negative (Negative); Urine Clarity Clear (Clear); Urine Urobilinogen Normal (Normal)
[2022-03-21 18:23] LABS: Hemoglobin A1c 5.3 % (3.8-5.6)
[2022-03-21 18:24] LABS: Protein, Urine (Random) 29.2 mg/dL (<11.9); Protein:Creat Ratio 220 mg/g CRE (0-200)
[2022-03-21 18:30] LABS: ALB/GLOB Ratio 1.1 RATIO (0.9-2.4); AST(SGOT) 20 U/L (15-37); Alanine Aminotransfer ALT/SGPT 36 U/L (16-61); Albumin, Serum 3.8 g/dL (3.2-5.0); Alkaline Phosphatase 76 U/L (45-117); Anion Gap 8 (5-15); BUN 22 mg/dL (7-18); BUN/Creat Ratio 17.7 RATIO (10-20); Calcium,Total 8.9 mg/dL (8.5-10.1); Chloride 101 mmol/L (98-107); Cholesterol 193 mg/dL (200); Creatinine, Serum 1.24 mg/dL (0.70-1.30); EST Glomerular Filtration Rate 63 mL/min (>60); Est Glom Filt Rate - Afr Amer 76 mL/min (>60); Globulin 3.6 g/dL (2.2-4.2); Glucose 163 mg/dL (74-106); High Density Lipoprotein 77 mg/dL; Potassium 4.1 mmol/L (3.5-5.1); Protein, Total 7.4 g/dL (6.4-8.2); Sodium Level 136 mmol/L (136-145); Thyroid Stim Hormone (TSH) 0.22 uIU/mL (0.358-3.74); Triglycerides 321 mg/dL; Uric Acid 4.6 mg/dL (3.5-7.2); Very Low Density Lipoprotein 64 mg/dL (5-40)
[2022-03-21 18:33] LABS: Vitamin D,25 Hydroxy 24.2 ng/mL
[2022-03-21 18:36] LABS: Bacteria RARE /hpf (None Seen); Red Blood Cells-Urine 0-5 SEEN /hpf (0-5)
[2022-03-22 14:39] LABS: Vitamin B12 288 pg/mL (211-911)
[2022-03-22 14:40] LABS: Ferritin 210 ng/mL (26-388); Iron 84 ug/dL (65-175); Iron Binding Capacity,Total 365 ug/dL (250-450); T4 Free Direct 0.76 ng/dL (0.76-1.46)
[2022-03-24 19:18] LABS: Transferrin 293 mg/dL (177-329)
== END | disposition home or self-care (01) ==
LOC: MFPLAB 15:51
PROVIDERS: PCP Family Medicine; Referring Provider Family Medicine; Visit Provider Family Medicine
DX: R79.89 Other specified abnormal findings of blood chemistry (principal); D64.9 Anemia, unspecified; R94.4 Abnormal results of kidney function studies; I10 Essential (primary) hypertension
CPT/HCPCS: 36415; 80053; 80061; 81001; 82306; 82570; 82607; 82728; 83036; 83540; 83550; 84156; 84439; 84443; 84466; 84550; 85025

== ENCOUNTER 2022-04-12 07:48 | Observation (INO) | payer OTHER, SELFPAY ==
--- NOTE | 2022-04-10 13:57 | EKG12_ITS ---
Test Reason : PREOP Blood Pressure : / mmHG Vent. Rate : 081 BPM Atrial Rate : 081 BPM P-R Int : 150 ms QRS Dur : 082 ms QT Int : 370 ms P-R-T Axes : 059 011 057 degrees QTc Int : 429 ms Normal sinus rhythm Normal ECG Confirmed by KOURTNEY SEWELL, NICHOLE ([id number]), features editor HEMANTH URIBE ([id number]) on 04/11/2022 9:17:59 AM Referred By: Donovan Carpio Confirmed By:NICHOLE OCONNELL MD
[2022-04-10 14:47] LABS: Partial Thromboplast Time 26.9 Seconds (24.1-36.2); Prothrombin Time (Protime)PT. 13.1 SECONDS (11.7-14.9)
[2022-04-12] VITALS (14 sets, daily range): BP systolic 115–149; BP diastolic 59–94; PULSE 65–90; RESP 16–20; TEMP 36.4–36.8; O2SAT 93–98; BMI 34.5
[2022-04-12] MEDS: Lactated Ringers 1,000 ML 15 ML IV (06:42)
[2022-04-12] MEDS: Ciprofloxacin 400 MG/200 ML BAG 200 MG IV ×2 (06:43→17:58)
--- NOTE | 2022-04-12 07:30 | PROST_PTH ---
PATIENT: HAWK ZAYAS LOC: MS3 U#:[id number] AGE/SX: 62/M ROOM: [facility] [place] RE04/12/[address]: Dr. Donovan Carpio MD : 1960 BED: 1 DIS: 04/13/2022 SPEC #: [id number] RECD: 04/12/22 13:54 STATUS: CRUZ BHAT #: [id number] REID: 04/12/22 07:[address]: Donovan Carpio DEPT: SURGICAL PATHOLOGY RECD BY: Karen Lee ENTERED: 04/13/22 07:40 SP TYPE: PROSTATE OTHR DR: Dr. Justin Arita MD Tissues: A - LYMPH NODE BIOPSY B - LYMPH NODE BIOPSY C - PROSTATE BIOPSY D - PROSTATE BIOPSY E - PROSTATE BIOPSY Procedures: Surgery Specimen Level IV Surgery Specimen Level V Surgery Specimen Level HEADER OPERATION: Lap robotic radical prostatectomy with nerve sparing PRE-OP DIAGNOSIS: Prostate cancer Wink 7 disease, PSA of 14 necrotic 20 g, prostate nodule at left base TISSUE SUBMITTED: A ? Left pelvic lymph node and fat, B ? Right pelvic lymph node, C ? Prostate, D ? Anterior apex, E ? Apical margin MICROSCOPIC DIAGNOSIS A. Left pelvic lymph nodes and fat: Nine out of nine lymph nodes, negative for metastatic carcinoma. Fragments of adipose tissue, negative for carcinoma. B. Right pelvic lymph nodes: Four out of four lymph nodes, negative for metastatic carcinoma. C. Prostate, radical prostatectomy: Prostatic adenocarcinoma. See cancer summary in the comment section. D. Anterior apex, biopsy: Negative for carcinoma. E. Apical margin, biopsy: Prostatic adenocarcinoma, Wink grade 3+4=7 (0.2 x 0.1 cm, measured microscopically). SJ:elio 04/14/2022 COMMENT PROSTATE CANCER (RADICAL) SUMMARY: Procedure: Radical Prostatectomy Prostate Size: Weight: 41 gm Size: 3.5 cm transversely, 3.5 cm anterior-posteriorly and 4 cm craniocaudally Histologic Type: Acinar adenocarcinoma Histologic Grade: Grade group 5 (Gray score 5+4=9) Tertiary pattern 3 is also noted. Tumor Quantitation: Estimated percentage of prostate involved by tumor: ~30% The tumor involves both right and left lobes. The tumor is predominantly present in the left lobe. Tumor involves apical and middle portion of the left lobe and measures approximately 2.4 x 1.5 x 0.7 cm (measured microscopically). Tumor in the right lobe involves apical portion and it appears to be extension from the left lobe in the central zone and measures 0.9 x 0.6 cm (measured microscopically). Extranodal extension: Not identified Urinary Bladder Neck Invasion: Not identified Seminal Vesicle Invasion: Not identified Lymphvascular Invasion: Not identified Perineural Invasion: Present, frequent Margins: Margin involved by invasive carcinoma. Linear length of the positive margin: 0.2 x 0.1 mm Location of positive margin: Left apical margin (specimen E). Wink pattern at positive margin is Gray grade 3+4=7 Treatment effect: No known presurgical therapy. Regional Lymph Nodes: Number of lymph nodes involved by carcinoma: 0 Total number of lymph nodes examined: 13 Additional Pathologic Findings: Chronic inflammation. Ancillary studies: Not performed. Clinical history: Please make reference to previous specimen ([id number]) left prostate, apex, mid and base, biopsies with diagnosis of ?prostatic adenocarcinoma.? PATHOLOGIC STAGE: pT2 pN0 pMx The above summary is in compliance with [employer] (CAP) Cancer Protocols Checklist and [place] [employer] Committee on Cancer (AJCC), Staging Manual, 8th Ed. Case has been reviewed in consultation with Dr. Villa who concurs with the above diagnosis. IDC:AM MICROSCOPIC DESCRIPTION Slides are reviewed. GROSS DESCRIPTION A - Received in fixative is one container labeled with the patient's name and designated left pelvic lymph node and fat. The specimen consists of multiple pieces of yellow adipose tissue that in aggregate measure 5 x 4 x 0.5 cm. Multiple nodules consistent with lymph nodes are noted. The largest lymph node measures 1 cm in greatest dimension. The entire specimen is submitted in five cassettes as follows: 1 - multiple lymph nodes, 2 - one bisected lymph node, 3 - one bisected lymph node, 4 & 5 - rest of the specimen. B - Received in fixative is one container labeled with the patient's name and designated right pelvic lymph node. The specimen consists of a piece of adipose tissue containing nodules consistent with lymph nodes measuring 3.5 x 2.5 x 1 cm. The largest lymph node measures 2 cm in greatest dimension. The entire specimen is submitted in two cassettes. Cassette 2 contains one bisected lymph node. C - Received in fixative is one container labeled with the patient's name and designated prostate. The specimen consists of a radical prostatectomy specimen consisting of prostate and bilateral seminal vesicles. The specimen weighs 41 gm. The prostate measures 3.5 cm transversely, 3.5 cm anterior-posteriorly and 4 cm craniocaudally. The right seminal vesicle measures 3 x 2 x 1 cm and right vas deferens measures 4 cm in length and 0.5 cm in diameter. The left seminal vesicle measures 2.5 x 2 x 1 cm and the left vas deferens measures 2 cm in length and 0.5 cm in diameter. The prostate is inked as follows: anterior surface - yellow, posterior surface - black, right lateral surface - blue, left lateral surface - green. The bilateral seminal vesicles and vas deferens are inked as follows: Posterior surface bilateral seminal vesicle and vas deferens - black, anterior surface right seminal vesicle and vas deferens - blue and anterior left seminal vesicle and vas deferens - green. Sections do not reveal any obvious mass lesions. Supervisor Rod Placing sections are submitted in 20 cassettes as follows: 1 - right seminal vesicle and vas deferens, 2 - left seminal vesicle and vas deferens, 3 - apical/urethral margin, enface, 4??bladder base and basal portion of prostate margin, enface, 5-10 - apical portion prostate, 11-14 - middle portion prostate, 15-20 - basal portion prostate. D - Received in fixative is one container labeled with the patient's name and designated anterior apex. The specimen consists of a piece of larson, indurated tissue measuring 1.5 x 0.6 x 0.2 cm. The entire specimen is submitted in one cassette. E - Received in fixative is one container labeled with the patient's name and designated apical margin. The specimen consists of a piece of larson soft tissue measuring 0.7 x 0.4 x 0.2 cm. The specimen is totally submitted in one cassette. / SJ:rg 04/13/2022 TC:0 CPT: 98421, 77496 x2, 45885 x3
--- NOTE | 2022-04-12 07:41 | PCM.HP.STD ---
HPI - General General Chief Complaint: Prostate cancer HPI Narrative HAWK ZAYAS, is a 62 M with prostate cancer Gray 7 disease PSA of 14 necrotic 20 g prostate nodule at the left base plan to do bilateral nerve sparing if possible spoke to the patient in preop setting all questions were addressed in the office setting we discussed the risk of the surgery including bleeding infection incontinence and loss of erections patient signed the consent form and we will get a proceed for surgery today. [facility] Medical History (Updated 04/05/22 @ 10:32 by Ariane Brito) Acute frontal sinusitis, unspecified Alcohol use Anemia Anxiety Arthritis Asthma BiPAP (biphasic positive airway pressure) dependence Cancer Chronic neck and back pain COPD (chronic obstructive pulmonary disease) Depression Diverticulosis Encounter for screening for COVID-19 Fatigue [id number] Former smoker Fracture GERD (gastroesophageal reflux disease) Gout High cholesterol History of echocardiogram History of edema History of renal disease History of steroid therapy History of stress test HTN (hypertension) HTN (hypertension) Low iron Restless legs s/p fistulotomy Sleep apnea SOB (shortness of breath) Wears glasses Home Medications allopurinol 300 mg tablet 300 mg PO QHS 05/16/17 [History Last Taken Unknown] ascorbic acid (vitamin C) 500 mg tablet 1,000 mg PO QHS 05/16/17 [History Last Taken Unknown] citalopram 20 mg tablet 20 mg PO QHS 05/16/17 [History Last Taken Unknown] folic acid 0.8 mg capsule 0.8 mg PO QHS 05/16/17 [History Last Taken Unknown] multivitamin 1 tab PO DAILY 06/02/21 [History Last Taken Unknown] zinc citrate 16.7 mg chewable tablet 50 mg PO DAILY 06/02/21 [History Last Taken Unknown] albuterol sulfate 90 mcg/actuation aerosol inhaler 1 puff inhalation Q6H PRN asthma 06/29/21 [History Last Taken Unknown] esomeprazole magnesium 40 mg capsule,delayed release 40 mg PO DAILY 06/29/21 [History Last Taken Unknown] ferrous sulfate 325 mg (65 mg iron) tablet 325 mg PO DAILY 06/29/21 [History Last Taken Unknown] lisinopril 20 mg tablet 40 mg PO DAILY 06/29/21 [History Last Taken Unknown] azelastine-fluticasone 137 mcg-50 mcg/spray nasal spray 1 spray intranasal BID #23 grams 09/26/21 [Rx Last Taken Unknown] atorvastatin 20 mg tablet 20 mg PO DAILY 11/01/21 [History Last Taken Unknown] budesonide-formoterol HFA 160 mcg-4.5 mcg/actuation aerosol inhaler (Symbicort) 2 puff inhalation BID #3 ea 12/22/21 [Rx Last Taken Unknown] montelukast 10 mg tablet 10 mg PO QHS #90 tabs 12/22/21 [Rx Last Taken Unknown] benralizumab 30 mg/mL subcutaneous syringe (Fasenra) 30 mg subcut QMONTH 04/05/22 [History Last Taken Unknown] Allergy/AdvReac Type Severity Reaction Status Date / Time aspirin Allergy Anaphylaxis Verified 04/12/22 06:36 Cephalosporins Allergy Other Verified 04/12/22 06:36 nitroglycerin Allergy Other Verified 04/12/22 06:36 Family History Other Heart disease Kidney disease Surgical History (Updated 04/05/22 @ 10:22 by Ariane Brito) History of rectal polypectomy History of tonsillectomy and adenoidectomy Hx of foot surgery S/P colonoscopy Social History Smoking Status: Former smoker Tobacco: How many years used: 3 second hand exposure: No alcohol intake: current Alcohol type: beer substance use type: former substance user Date of last use: Quit using cocaine 1986, used for about 10 years Vital Signs Vital Signs Vital Signs: 04/12/22 06:37 04/12/22 06:37 Temperature 98 F Temperature Source Temporal Pulse Rate 65 Respiratory Rate 16 Respiratory Pattern Normal Blood Pressure 149/94 H Blood Pressure Mean 112 Blood Pressure Source Monitor Blood Pressure Position Semi-Fowlers Blood Pressure Location Right Arm Pulse Ox 97 Oxygen Delivery Method Room Air Weight Weight: 103 kg Body Mass Index (BMI) 34.5
--- NOTE | 2022-04-12 07:50 | PCM.DC ---
Discharge Instructions Diet Discharge Diet: No restrictions, Light diet - advance as tolerated and Soft diet Activity Discharge Activity: May Not Drive and May Shower Return to work on:: 05/24/22 May shower in (days): 1 Lifting Restrictions: No lifting x 6 weeks Dressing / Incision Call your doctor if your incision/area has: Sudden Increased Bleeding Call your doctor if you observe: Fever of 101 or Higher Cleanse incision/area with: Soap & Water Catheter: Pimentel to leg bag and Pimentel to large bag Drain: [place] Follow Up Care Please Follow Up With: Donovan Carpio MD When: call for appt for two weeks to remove pimentel Test Results: Test results from this visit will be discussed in further detail at your follow-up appointment, if applicable. Discharge Plan Admission Primary Reason for Your Visit: radical prostatectomy Attending Provider: Donovan Carpio Primary Care Provider: Justin Arita Instructions Patient Instructions: Radical Prostatectomy Dc Discharge Orders/Prescriptions Prescriptions: New ciprofloxacin HCl [Cipro] 500 mg tablet 500 mg PO BID Qty: 20 0RF docusate sodium [Colace] 100 mg capsule 100 mg PO BID Qty: 20 0RF oxycodone-acetaminophen 5-325 mg tablet 1 tab PO Q6H PRN (Reason: pain) 7 Days Qty: 14 0RF Continued albuterol sulfate 90 mcg/actuation HFA aerosol inhaler 1 puff inhalation Q6H PRN (Reason: asthma) lisinopril 20 mg tablet 40 mg PO DAILY ferrous sulfate 325 mg (65 mg iron) tablet 325 mg PO DAILY multivitamin Tablet 1 tab PO DAILY zinc citrate 16.7 mg tablet,chewable 50 mg PO DAILY azelastine-fluticasone 137-50 mcg/spray spray,non-aerosol 1 spray intranasal BID Qty: 23 6RF Rx Instructions: administer into each nostril atorvastatin 20 mg tablet 20 mg PO DAILY budesonide-formoterol [Symbicort] 160-4.5 mcg/actuation HFA aerosol inhaler 2 puff inhalation BID Qty: 3 3RF montelukast 10 mg tablet 10 mg PO QHS Qty: 90 3RF citalopram 20 MG tablet 20 mg PO QHS Label Comments: DEPRESSION ascorbic acid (vitamin C) 500 MG tablet 1,000 mg PO QHS allopurinol 300 MG tablet 300 mg PO QHS Label Comments: GOUT folic acid 0.8 MG capsule 0.8 mg PO QHS esomeprazole magnesium 40 mg capsule,delayed release(DR/EC) 40 mg PO DAILY Label Comments: REFLUX Fasenra 30 mg/mL syringe 30 mg subcut QMONTH Rx Instructions: EVERY 8 WEEKS Other Ambulatory Orders: 12 Lead EKG (Routine) Timeframe: [id number] Location: None Selected Ordered By: Dr. Abelino Lewis Referrals / Follow Up: Donovan Carpio MD [Med Staff - Active Staff] - Justin Arita MD [Primary Care Provider] - Disposition Disposition (needs filled in before D/C Order can be placed): Home, Self Care
--- NOTE | 2022-04-12 12:39 | OP.PCM_ITS ---
Report of Operation Date of Procedure: 04/12/22 Pre-Operative Diagnosis: Prostate cancer Post-Operative Diagnosis: The same Surgery/Procedure Performed:: Laparoscopic robotic assisted radical prostatectomy with by lateral nerve sparing and also pelvic lymph node dissection complete Description of Surgical Findings:: This is a 62-year-old male who has prostate cancer PSA is elevated 14 he had a Gray 7 cancer about a 30 g prostate after discussion with the patient and the family he wishes to proceed with a radical prostatectomy for curative intent he understands is a risk of incontinence risk of losing erections bleeding and infection and bladder control problems after surgery is also risk that he may need more treatment after surgery for prostate cancer. Consent was signed all his questions were addressed and working to proceed with surgery today. Patient was taken back to the operating room after smooth induction of general anesthesia he was placed supine on the table with the legs in stirrups and we position him for robotic prostatectomy with the legs in stirrups and the robot coming in from above the legs. The abdomen was was prepped and draped in usual sterile fashion made a small incision above the umbilicus advanced a Veress needle into the peritoneal cavity insufflated the peritoneal cavity with CO2 gas and then placed the camera trocar right arm trocar left upper trocar the second left arm trocar preschool teacher's assistant suction port and also the air seal port. Then at this point we proceeded with the dissection I docked the robot placed the scissors bipolar and progress in the abdomen first reflected the colon off the lateral sidewall and then retracted the colon from the pelvis this then allowed me to get posterior dissection below the bladder it was a very difficult dissection due to his extreme obesity and a lot of adipose tissue in the abdomen deep in the pelvis quite difficult had the use of multiple retractors to retract the fat all the way but able to dissect out the vas deferens and seminal vesicle on the left side and the right side completely after both of these were dissected out the neck came out of the pelvis and then we dropped the bladder and created the space of Retzius with the bladder on traction and then I went to the pelvic lymph nodes on the right side I first dissected the left iliac artery and vein the obturator nerve and all the pelvic lymph nodes were removed off to the pelv ic left sidewall using clips and electrocautery during the dissection all this lymph node tissue was then sent off to the pathology. Grossly appeared normal. Then I went to the left side and then to the complete pelvic lymph node dissection the left side dissecting the lymph node tissue of the iliac artery and vein off the pelvic sidewall off the rotor casting machine operator space identified the obturator nerve and then once the dissection of the left side was completed then we went back to the prostate I then defatted the prostate there was quite a little fat of the prostate this was sent off as a specimen we then put traction the prostate and incised the endopelvic fascia in the right side dissected up to the apex of the prostate and then we went to the endopelvic fascia on the right side dissected the apex of prostate dissected out the puboprostatic ligaments and also the dorsal vein complex. We then placed a stitch in the dorsal vein complex to control the dorsal vein, plexus. We then pulled back to the bladder neck and then we and we resected between the bladder and the prostate getting into the bladder and deflating the balloon and the catheter and then dissecting between the bladder and prostate posteriorly. Until we got the seminal vesicles and vas deferens on both sides that were already dissected out. Is a fairly wide open bladder neck because of the dissection I then put the traction on the prostate laterally for an approach to the right side of the prostate and first we dissected the right side of the prostate we incised the endopelvic fascia over the prostate top of the prostate within the dissected down to the get to the capsule the prostate and then we swept the tissue off the top of the prostate laterally until we identified the neurovascular bundle running underneath the prostate on the right side and then came to the pedicles on the right side using bipolar to control the small vessels and then once we got into the prostate edge then we lifted the prostate up and then we dissected the neurovascular bundle off the prostate inferiorly and all the way anteriorly to the apex once the neurovascular bundle was been dissected off the prostate the right side this came out perfectly we then went to the left side we switch the ports so that I can approach the left side traction on the prostate laterally and then on the left side we incised the endopelvic fascia we swept the endopelvic fascia off the prostate and then we identified the neurovascular bundle running underneath the prostate and the left side and then the completed a dissection on the left side we came through the pedicles and left side with bite bipolar cautery and then was able to elevate the prostate up and then sweep the neurovascular bundle off the left side all the way to the apex this also came up very nicely. So after complete dissection on both the left side and the right side both neurovascular schema perfectly we then went up we and dissected through the dorsal vein complex we dissected through the urethra circumferentially dissected the urethra get as much length as possible we did send off an extra piece from the apex to verify that had a negative margin and then we transected the urethra and the prostate was then put in Endo Catch bag I then reconstructed the bladder neck in a tennis racquet fashion with 3-0 Vicryl so that I had a nice digit size opening in the bladder and then I also put an extra stitch in the dorsal vein complex to control any bleeding with a stitch with a 3-0 Vicryl stitch and the dorsal vein complex. We then performed an anastomosis between the reconstructed bladder neck and the urethra this was done with a 3 oh V-Loc stitches in a continuous fashion sort of a difficult anastomosis with all the fat and a very deep pelvis but after meticulous reconstruction that I was able to do with the anastomosis we did this over a catheter and then I remove the catheter and put in a new 18 Georgian jena tip catheter in the bladder and then 20 cc were flushed and then we flushed the bladder to make sure there is no leak and then we inflated the balloon with 10 cc of water. We then pulled out of the pelvis the prostate was transferred to the camera port we undocked the robot the ports were removed and then we opened up the umbilical port and extracted the prostate and closed the umbilical port with a [id number] 0 Vicryl stitches x2 and then we closed the aerocele port with a stitch and then all the subcuticular stitches were used to close the skin incisions patient's anesthetic was reversed he was extubated taken back to the PACU in stable condition blood loss was about 200cc. Was a long case mostly due to the difficulty with a lot of adipose tissue making the dissection more difficult but in the end I was happy with the results good nerve sparing bilaterally good urethral complex spared and anastomosis went perfectly. Surgeon: Donovan Carpio Type of Anesthesia: General Drains: pimentel Estimated Blood Loss (mL): 200 Admit VTE Documentation VTE Present on Admission: No VTE Mechan Device Prophylaxis: SCD's VTE Pharm Prophylaxis ordered?: No
[2022-04-12] MEDS: Lactated Ringers 1,000 ML 125 ML IV ×2 (13:05→18:00)
[2022-04-12] MEDS: Ketorolac 15 MG/ML Vial IV (16:28)
[2022-04-12] MEDS: Acetaminophen 325 MG Tablet PO (18:01)
[2022-04-12] MEDS: Ondansetron 4 MG/2 ML Vial IV (18:14)
[2022-04-12] MEDS: Morphine 2 MG/ML Syringe 1 MG IV (18:18)
[2022-04-12] MEDS: Albuterol 2.5 MG/3 ML VIAL.NEB. INHALATION (19:27)
[2022-04-12] MEDS: Budesonide Respules 0.5 MG/2 ML AMPUL.NEB. INHALATION (19:27)
[2022-04-12] MEDS: Montelukast 10 MG Tablet PO (21:07)
[2022-04-12] MEDS: Allopurinol 300 MG Tablet PO (21:07)
[2022-04-12] MEDS: Docusate Sodium 100 MG Capsule 200 MG PO (21:07)
[2022-04-12] MEDS: HYDROcodone Bitartrate/Apap 5/325 Tablet PO (21:07)
[2022-04-12] MEDS: Citalopram 20 MG Tablet PO (21:07)
[2022-04-12] MEDS: Folic Acid 1 MG Tablet PO (21:07)
[2022-04-12] MEDS: Fluticasone 0.05% 1 SPRAY NASAL.SRY NASAL (21:10)
[2022-04-12] MEDS: Azelastine HCl NASAL.SRY 1 SPRAY NASAL (21:11)
--- NOTE | 2022-04-12 22:07 | NURSING ---
Po 78% on ra with bipap. Pt sleeping. Pt taken off his bipap and placed on 02 at 2lnc.
--- NOTE | 2022-04-12 22:30 | CPS ---
Oxygen bled into pt's home CPAP machine
[2022-04-13 00:22] VITALS: BP 101/58; PULSE 67; RESP 16; TEMP 36.7; O2SAT 94
[2022-04-13] MEDS: Lactated Ringers 1,000 ML 125 ML IV (03:03)
[2022-04-13 04:20] VITALS: BP 110/53; PULSE 64; RESP 18; TEMP 36.8; O2SAT 94
[2022-04-13] MEDS: Ciprofloxacin 400 MG/200 ML BAG 200 MG IV (05:09)
[2022-04-13] MEDS: Albuterol 2.5 MG/3 ML VIAL.NEB. INHALATION (07:23)
[2022-04-13 07:24] VITALS: PULSE 68; RESP 19; O2SAT 92
[2022-04-13] MEDS: Budesonide Respules 0.5 MG/2 ML AMPUL.NEB. INHALATION (07:24)
--- NOTE | 2022-04-13 07:44 | PCM.PN.GU ---
Subjective Subjective Patient 62-year-old male status post radical prostatectomy doing well overnight, today we will Hep-Lock his IV fluids advance to regular diet ambulate and if he is doing well he can go home today after lunch. Objective Data Objective Data Vital Signs: Vital Signs Temp Pulse Resp BP Pulse Ox O2 Del Method O2 Flow Rate 98.3 F 68 19 H 110/53 L 92 Room Air 4 04/13/22 04:20 04/13/22 07:24 04/13/22 07:24 04/13/22 04:20 04/13/22 07:24 04/13/22 07:24 04/13/22 04:20 Oxygen Flow Rate (L/min) 4 Oxygen Delivery Method Room Air Weight: 103 kg Body Mass Index (BMI) 34.5 Intake & Output: Intake and Output for Last 24 Hours 04/11/22 04/12/22 04/13/22 23:59 23:59 23:59 Intake Total 2140.83 / 2140.83 1373.75 / 1373.75 Output Total 1350 / 1350 700 / 700 Balance 790.83 / 790.83 673.75 / 673.75
[2022-04-13 08:16] VITALS: BP 124/67; PULSE 76; RESP 18; TEMP 36.7; O2SAT 99
[2022-04-13] MEDS: HYDROcodone Bitartrate/Apap 5/325 Tablet PO (10:46)
[2022-04-13] MEDS: Ferrous Sulfate 325 MG Tablet PO (10:47)
[2022-04-13] MEDS: Azelastine HCl NASAL.SRY 1 SPRAY NASAL (10:47)
[2022-04-13] MEDS: Docusate Sodium 100 MG Capsule 200 MG PO (10:47)
[2022-04-13] MEDS: Lisinopril 40 MG Tablet PO (10:48)
[2022-04-13] MEDS: Pantoprazole Sodium 40 MG Tablet PO (10:48)
[2022-04-13] MEDS: Fluticasone 0.05% 1 SPRAY NASAL.SRY NASAL (10:48)
[2022-04-13] MEDS: Atorvastatin Calcium 20 MG Tablet PO (10:48)
[2022-04-13 14:29] VITALS: BP 117/53; PULSE 79; RESP 16; TEMP 37; O2SAT 96
== END 2022-04-13 14:41 | disposition home or self-care (01) ==
LOC: SDC 08:51 → MS3 08:51
PROVIDERS: Anesthesiology; Admitting Provider Urology; PCP Family Medicine; Referring Provider Urology; Visit Provider Urology
PROC: 0VT04ZZ Resection of Prostate, Percutaneous Endoscopic Approach (ICD-10-PCS; CPT 55866; principal; 2022-04-12 07:10)
DX: C61 Malignant neoplasm of prostate (principal); J43.9 Emphysema, unspecified; D64.9 Anemia, unspecified; Z87.891 Personal history of nicotine dependence; I10 Essential (primary) hypertension; E78.00 Pure hypercholesterolemia, unspecified; M10.9 Gout, unspecified; Z79.899 Other long term (current) drug therapy; Z80.42 Family history of malignant neoplasm of prostate; F41.9 Anxiety disorder, unspecified; F32.9 Major depressive disorder, single episode, unspecified; M19.90 Unspecified osteoarthritis, unspecified site; K21.9 Gastro-esophageal reflux disease without esophagitis; G47.33 Obstructive sleep apnea (adult) (pediatric); R06.02 Shortness of breath; R53.83 Other fatigue
CPT/HCPCS: 55866; 00865; 36415; 85610; 85730; 88305; 88307; 88309; 93005; 94640; 96361; 96365; 96366; 96375; 99218; 99251; J7120; G0378; G0463; J0744; J2405

== ENCOUNTER → 2022-04-17 | Outpatient (CLI) | payer OTHER, SELFPAY ==
[2022-04-17 13:37] VITALS: BP 136/81; PULSE 74; TEMP 36.4; O2SAT 97
[2022-04-17] MEDS: Benralizumab 30 MG/ML Syringe SC (13:42)
== END | disposition home or self-care (01) ==
LOC: MEDOUTP 13:21
PROVIDERS: PCP Family Medicine; Referring Provider Nurse Practitioner Acute Care; Visit Provider Nurse Practitioner Acute Care
DX: J45.50 Severe persistent asthma, uncomplicated (principal)
CPT/HCPCS: 96372; J0517

== ENCOUNTER → 2022-06-08 | Outpatient (CLI) | payer OTHER, SELFPAY ==
[2022-06-08 16:03] LABS: PSA,Total- Diagnostic < 0.01 ng/mL (0.0-4.0)
== END | disposition home or self-care (01) ==
LOC: LAB 15:06
PROVIDERS: PCP Family Medicine; Visit Provider Registered Nurse
DX: C61 Malignant neoplasm of prostate (principal)
CPT/HCPCS: 36415; 84153

== ENCOUNTER → 2022-06-20 | Outpatient (CLI) | payer OTHER, SELFPAY ==
[2022-06-20 15:33] LABS: Bacteria 0 SEEN /hpf (None Seen); Mucous, Urine 0 SEEN /hpf (<or=2+); Red Blood Cells-Urine 0 SEEN /hpf (0-5); Squamous Epithelial Cells - UA 0 SEEN /hpf (0-5)
[2022-06-20 17:52] LABS: Absolute Lymphocyte Count 1.52 X10^3/uL (0.83-4.51); Absolute Neutrophil Count 4.5 X10^3/uL (2.0-7.7); Basophil# 0.01 X10^3/uL; Basophil% 0.2 % (0-1); Hematocrit 37.2 % (40-54); Hemoglobin 12.1 g/dL (13.0-16.5); Lymphocyte # 1.52 X10^3/ul (0.83-4.51); Lymphocyte % 23.1 % (19-41); Mean Corp Hgb Conc 32.5 g/dL (32-36); Mean Corpuscular Hgb 31.5 pg (27.0-32.0); Mean Corpuscular Volume 96.9 fL (80-94); Mean Platelet Vol. 10.1 fl (6.2-12.0); Monocyte# 0.53 X10^3/uL; Monocyte% 8.1 % (0-10); NRBC Flagged by Analyzer 0 % (0-5); Neutrophil # 4.47 X10^3/uL (2.7-7.7); Platelet Count 234 K/mm3 (150-450); RBC Distribution Width CV 13.2 % (11.6-14.6); RBC Distribution Width SD 46.9 fl (35.1-43.9); Red Blood Count 3.84 M/mm3 (4.6-6.2); White Blood Count 6.6 K/mm3 (4.4-11.0)
[2022-06-20 18:13] LABS: Vitamin D,25 Hydroxy 24.2 ng/mL
[2022-06-20 18:18] LABS: Color, Urine Yellow (Yellow); Glucose, Dipstick Normal (Normal); Ketone-Dipstick Negative (Negative); Leukocyte Esterase-Dipstick Negative /ul (Negative); Nitrite-Dipstick Negative (Negative); Occult Blood-Urine Negative /ul (Negative); Protein-Dipstick 15 mg/dl (Negative); Urine Bilirubin Dipstick Negative (Negative); Urine Clarity Clear (Clear); Urine Urobilinogen Normal (Normal)
[2022-06-20 19:24] LABS: ALB/GLOB Ratio 1.2 RATIO (0.9-2.4); AST(SGOT) 18 U/L (15-37); Alanine Aminotransfer ALT/SGPT 27 U/L (16-61); Albumin, Serum 3.5 g/dL (3.2-5.0); Alkaline Phosphatase 73 U/L (45-117); Anion Gap 9 (5-15); BUN 22 mg/dL (7-18); BUN/Creat Ratio 22.2 RATIO (10-20); Calcium,Total 8.7 mg/dL (8.5-10.1); Chloride 105 mmol/L (98-107); Cholesterol 177 mg/dL (200); Creatinine, Serum 0.99 mg/dL (0.70-1.30); EST Glomerular Filtration Rate 81 mL/min (>60); Est Glom Filt Rate - Afr Amer 98 mL/min (>60); Ferritin 202 ng/mL (26-388); Globulin 2.9 g/dL (2.2-4.2); Glucose 123 mg/dL (74-106); High Density Lipoprotein 53 mg/dL; Iron 64 ug/dL (65-175); Iron Binding Capacity,Total 323 ug/dL (250-450); PERCENT IRON SATURATION 19.8 % (15.0-55.0); Potassium 4.3 mmol/L (3.5-5.1); Protein, Total 6.4 g/dL (6.4-8.2); Sodium Level 140 mmol/L (136-145); Triglycerides 542 mg/dL
[2022-06-20 19:27] LABS: White Blood Cells 0-5 SEEN /hpf (0-5)
== END | disposition home or self-care (01) ==
LOC: MFPLAB 15:24
PROVIDERS: PCP Family Medicine; Referring Provider Family Medicine; Visit Provider Family Medicine
DX: I10 Essential (primary) hypertension (principal); D64.9 Anemia, unspecified; R94.4 Abnormal results of kidney function studies
CPT/HCPCS: 36415; 80053; 80061; 81001; 82306; 82728; 83540; 83550; 84443; 85025

== ENCOUNTER → 2022-06-30 | Outpatient (CLI) | payer OTHER, SELFPAY ==
--- NOTE | 2022-06-30 11:16 | STRESSREP ---
Stress Test Report Date: 06-30-2022 Procedure: Exercise tolerance test/imaging study Indications: Shortness of breath/dyspnea on exertion Consent: Per the patient Procedure: The patient exercised on a Link protocol for 3 minutes completing Stage I achieving a peak heart rate of 130s bpm (86% predicted maximal heart rate) with resting blood pressure of 142/88 mmHg and a peak blood pressure 212/80 mmHg and a peak MET capacity of 4 METs. The baseline ECG demonstrated normal sinus rhythm; poor R wave progression. The peak exercise ECG demonstrated somatic/motion artifact with no obvious ECG changes. There was an occasional PVC during recovery. The functional capacity was considered decreased. There was no complaint of chest discomfort during exercise or recovery. The examination was discontinued secondary to dyspnea; dizziness/lightheadedness. Impression: 1. Technically adequate (percent predicted maximal heart rate greater than 85%) exercise tolerance test 2. Peak exercise ECG with somatic/motion artifact with no obvious ECG change 3. There was an occasional PVC during recovery 4. Blood pressure response: Resting hypertension-exaggerated response 5. Nuclear images pending Myocardial perfusion imaging study: Technique: The patient was injected with 14.5 mCi of technetium 99m Cardiolite and subsequently rest SPECT Cardiolite nuclear imaging was obtained in the horizontal long, vertical long, and short axis views. The patient exercised on a Link protocol for 3 minutes completing Stage I achieving a peak heart rate of 130s bpm (86% predicted maximal heart rate) with resting blood pressure of 142/88 mmHg and a peak blood pressure 212/80 mmHg and a peak MET capacity of 4 METs. The patient was injected with 44.3 mCi of technetium 99m Cardiolite and subsequently stress SPECT Cardiolite nuclear imaging was obtained in the horizontal long, vertical long, and short axis views. A gated Cardiolite study at peak stress was obtained. Interpretation: Rest and stress SPECT Cardiolite nuclear imaging status post realignment and normalization(attenuation correction not obtained) demonstrates the appearance of an element of body motion during image acquisition and at rest the appearance of diminished myocardial perfusion/tracer uptake in portions of the mid to distal inferior and inferior apical segments which appears to improve/normalize following stress. There is end systolic thickening and brightening. The gated Cardiolite study demonstrates myocardial thickening and inward wall motion. The reported LVEF is 60%. Impression: 1. Rest and stress SPECT Cardiolite nuclear imaging demonstrate myocardial perfusion changes appearing compatible with shifting soft tissue attenuation/artifact being more prominent at rest as opposed to stress with no myocardial perfusion changes considered diagnostic for associated stress-induced myocardial ischemia. 2. The gated Cardiolite study reports an LVEF of 60%. This note was generated with [employer] software. It may contain incorrect words, spelling, and punctuation that were not noted in checking the note before signing.
== END | disposition home or self-care (01) ==
LOC: CVS 06:28
PROVIDERS: PCP Family Medicine; Visit Provider Family Medicine
DX: R42 Dizziness and giddiness (principal); I49.3 Ventricular premature depolarization; R07.9 Chest pain, unspecified
CPT/HCPCS: 78452; 93017; A9500; A4216

== ENCOUNTER → 2022-07-13 | Outpatient (CLI) | payer OTHER, SELFPAY ==
[2022-07-13 08:18] LABS: Cholesterol 174 mg/dL (200); High Density Lipoprotein 60 mg/dL; Triglycerides 356 mg/dL; Very Low Density Lipoprotein 71 mg/dL (5-40)
== END | disposition home or self-care (01) ==
LOC: LAB 06:36
PROVIDERS: PCP Family Medicine; Referring Provider Family Medicine; Visit Provider Family Medicine
DX: E78.5 Hyperlipidemia, unspecified (principal)
CPT/HCPCS: 36415; 80061

== ENCOUNTER → 2022-10-23 | Outpatient (CLI) | payer OTHER, SELFPAY ==
[2022-10-23 11:01] LABS: PSA,Total- Diagnostic 0.04 ng/mL (0.0-4.0)
== END | disposition home or self-care (01) ==
LOC: LAB 08:48
PROVIDERS: PCP Family Medicine; Visit Provider Registered Nurse
DX: C61 Malignant neoplasm of prostate (principal)
CPT/HCPCS: 36415; 84153

== ENCOUNTER → 2022-11-04 | Outpatient (CLI) | payer OTHER, SELFPAY ==
[2022-11-04 08:48] LABS: Bacteria 0 SEEN /hpf (None Seen); Mucous, Urine 0 SEEN /hpf (<or=2+); Red Blood Cells-Urine 0 SEEN /hpf (0-5); Squamous Epithelial Cells - UA 0 SEEN /hpf (0-5); White Blood Cells 0 SEEN /hpf (0-5)
[2022-11-04 09:12] LABS: Absolute Lymphocyte Count 1.69 X10^3/uL (0.83-4.51); Absolute Neutrophil Count 3.8 X10^3/uL (2.0-7.7); Hematocrit 37.1 % (40-54); Hemoglobin 12.6 g/dL (13.0-16.5); Lymphocyte # 1.69 X10^3/ul (0.83-4.51); Mean Corpuscular Hgb 32.5 pg (27.0-32.0); Mean Corpuscular Volume 95.6 fL (80-94); Mean Platelet Vol. 9.4 fl (6.2-12.0); Monocyte# 0.54 X10^3/uL; NRBC Flagged by Analyzer 0 % (0-5); Neutrophil # 3.78 X10^3/uL (2.7-7.7); Neutrophil % 62.7 % (47-70); Platelet Count 204 K/mm3 (150-450); RBC Distribution Width CV 12.8 % (11.6-14.6); RBC Distribution Width SD 43.9 fl (35.1-43.9); Red Blood Count 3.88 M/mm3 (4.6-6.2)
[2022-11-04 09:46] LABS: Color, Urine Yellow (Yellow); Glucose, Dipstick Normal (Normal); Ketone-Dipstick Negative (Negative); Leukocyte Esterase-Dipstick Negative /ul (Negative); Nitrite-Dipstick Negative (Negative); Occult Blood-Urine 10 /ul (Negative); Protein-Dipstick 15 mg/dl (Negative); Specific Gravity, Urine 1.015 (1.002-1.030); Urine Bilirubin Dipstick Negative (Negative); Urine Clarity Clear (Clear); Urine Urobilinogen Normal (Normal)
[2022-11-04 10:03] LABS: AST(SGOT) 16 U/L (15-37); Alanine Aminotransfer ALT/SGPT 30 U/L (16-61); Albumin, Serum 3.4 g/dL (3.2-5.0); Alkaline Phosphatase 69 U/L (45-117); Anion Gap 5 (5-15); BUN 18 mg/dL (7-18); BUN/Creat Ratio 15.5 RATIO (10-20); Calcium,Total 8.9 mg/dL (8.5-10.1); Chloride 106 mmol/L (98-107); Cholesterol 162 mg/dL (200); Creatinine, Serum 1.16 mg/dL (0.70-1.30); EST Glomerular Filtration Rate 68 mL/min (>60); Est Glom Filt Rate - Afr Amer 82 mL/min (>60); Globulin 3.4 g/dL (2.2-4.2); Glucose 103 mg/dL (74-106); High Density Lipoprotein 49 mg/dL; Protein, Total 6.8 g/dL (6.4-8.2); Sodium Level 139 mmol/L (136-145); T4 Free Direct 0.74 ng/dL (0.76-1.46); Thyroid Stim Hormone (TSH) 1.16 uIU/mL (0.358-3.74); Triglycerides 313 mg/dL; Very Low Density Lipoprotein 63 mg/dL (5-40)
[2022-11-06 08:23] LABS: Vitamin D,25 Hydroxy 51.5 ng/mL
[2022-11-07 16:09] LABS: Anti-Thyroglobulin AB < 1.0 IU/mL (0.0-0.9); Thyroglobulin, Serum Qt. 8.7 ng/mL (1.4-29.2); Thyroid Peroxidase AB < 9 IU/mL (0-34); Thyroid Stim Immunoglob <0.10 IU/L (0.00-0.55)
== END | disposition home or self-care (01) ==
LOC: LAB 08:35
PROVIDERS: PCP Family Medicine; Referring Provider Family Medicine; Visit Provider Family Medicine
DX: I10 Essential (primary) hypertension (principal); E55.9 Vitamin D deficiency, unspecified; R73.09 Other abnormal glucose
CPT/HCPCS: 80053; 80061; 81001; 82306; 83036; 84432; 84439; 84443; 84445; 84550; 85025; 86376; 86800

== ENCOUNTER → 2023-01-26 | Outpatient (CLI) | payer OTHER, SELFPAY ==
[2023-01-26 13:52] LABS: PSA,Total- Diagnostic 0.08 ng/mL (0.0-4.0)
== END | disposition home or self-care (01) ==
LOC: LAB 12:47
PROVIDERS: PCP Family Medicine; Referring Provider Urology; Visit Provider Urology
DX: C61 Malignant neoplasm of prostate (principal)
CPT/HCPCS: 36415; 84153

== ENCOUNTER → 2023-02-26 | Outpatient (CLI) | payer OTHER, SELFPAY ==
--- NOTE | 2023-02-26 08:24 | MRI_ITS ---
STUDY: MR PELVIS WITH T WITHOUT CONTRAST REASON FOR EXAM: Male, 63 years old. biochemical recurrent prostate cancer -- eval for pelvic disease, PT HAD PROSTATE REMOVED PSA 0.08 TECHNIQUE: Standardized fat and water weighted pulse sequences were obtained in all 3 orthogonal planes, pre-and post contrast administration. 20 CC IV CLARISCAN was administered for the contrast portion of the examination. COMPARISON: No relevant prior comparison study available comparison is made with a PET/CT February 27, 2023. FINDINGS: Roughly 5 mm T1 dark, T2 bright, enhancing lesion left inferior pubic ramus shows no restricted diffusion on axial image 13 of series 38. 10 mm T2 bright, T1 dark, enhancing subcortical lesion posterior left femoral head without restricted diffusion. Serpiginous subcortical enhancing line left femoral head suspicious for avascular necrosis. There is a T2 bright, T1 dark, nonenhancing, 2.4 cm left iliac chain nodule suggesting possible necrotic lymph node. No restricted diffusion. No prostatic bed enhancing nodule or mass to suggest recurrence. No pelvic lymphadenopathy exemplified. No free fluid in the pelvis. Visualized colon and small bowel are within normal limits. L5-S1 disc herniation with surrounding enhancement seen on the sagittal T1 postcontrast enhanced images. MRI/Pelvis W/WO Contrast IMPRESSION: 1. T2 bright, enhancing osseous lesions posterior left femoral head and left inferior pubic ramus questionable for metastatic foci. No restricted diffusion. No appreciable glucose avidity. 2. 2.4 cm left iliac chain potential necrotic lymph node showing no enhancement or glucose avidity. 3. L5-S1 posterior disc herniation Electronically Signed: Jaren Lu DO at 22:16 EDT ,
[2023-02-26 08:51] LABS: EGFR FINGERSTICK > 60.0000 mL/min (>60)
== END | disposition home or self-care (01) ==
LOC: MRI 08:04
PROVIDERS: PCP Family Medicine; Referring Provider Student in an Organized Health Care Education/Training Program; Visit Provider Student in an Organized Health Care Education/Training Program
DX: C61 Malignant neoplasm of prostate (principal); Z19.1 Hormone sensitive malignancy status
CPT/HCPCS: 72197; A9575

== ENCOUNTER → 2023-04-05 | Outpatient (CLI) | payer OTHER, SELFPAY ==
[2023-04-05 17:41] LABS: Absolute Lymphocyte Count 1.53 X10^3/uL (0.83-4.51); Basophil# 0.01 X10^3/uL; Basophil% 0.2 % (0-1); Hematocrit 37.6 % (40-54); Hemoglobin 12.6 g/dL (13.0-16.5); Lymphocyte # 1.53 X10^3/ul (0.83-4.51); Lymphocyte % 25.2 % (19-41); Mean Corp Hgb Conc 33.5 g/dL (32-36); Mean Corpuscular Hgb 31.9 pg (27.0-32.0); Mean Corpuscular Volume 95.2 fL (80-94); Mean Platelet Vol. 9.4 fl (6.2-12.0); Monocyte# 0.51 X10^3/uL; Monocyte% 8.4 % (0-10); NRBC Flagged by Analyzer 0 % (0-5); Neutrophil # 4.01 X10^3/uL (2.7-7.7); Neutrophil % 65.9 % (47-70); Platelet Count 231 K/mm3 (150-450); RBC Distribution Width CV 12.4 % (11.6-14.6); RBC Distribution Width SD 43.3 fl (35.1-43.9); Red Blood Count 3.95 M/mm3 (4.6-6.2); White Blood Count 6.1 K/mm3 (4.4-11.0)
[2023-04-05 18:31] LABS: ALB/GLOB Ratio 1.1 RATIO (0.9-2.4); AST(SGOT) 15 U/L (15-37); Alanine Aminotransfer ALT/SGPT 37 U/L (16-61); Albumin, Serum 3.7 g/dL (3.2-5.0); Alkaline Phosphatase 75 U/L (45-117); Anion Gap 5 (5-15); BUN 21 mg/dL (7-18); BUN/Creat Ratio 18.1 RATIO (10-20); Calcium,Total 9.2 mg/dL (8.5-10.1); Chloride 105 mmol/L (98-107); Cholesterol 180 mg/dL (200); Creatinine, Serum 1.16 mg/dL (0.70-1.30); EST Glomerular Filtration Rate 68 mL/min (>60); Est Glom Filt Rate - Afr Amer 82 mL/min (>60); Ferritin 267 ng/mL (26-388); Globulin 3.5 g/dL (2.2-4.2); Glucose 110 mg/dL (74-106); High Density Lipoprotein 54 mg/dL; Iron 109 ug/dL (65-175); Iron Binding Capacity,Total 364 ug/dL (250-450); Potassium 4.2 mmol/L (3.5-5.1); Protein, Total 7.2 g/dL (6.4-8.2); Sodium Level 137 mmol/L (136-145); Thyroid Stim Hormone (TSH) 1.84 uIU/mL (0.358-3.74); Triglycerides 455 mg/dL
== END | disposition home or self-care (01) ==
LOC: MFPLAB 16:37
PROVIDERS: PCP Family Medicine; Visit Provider Family Medicine
DX: E61.1 Iron deficiency (principal); I10 Essential (primary) hypertension
CPT/HCPCS: 36415; 80053; 80061; 82728; 83540; 83550; 84443; 85025

== ENCOUNTER → 2023-08-27 | Outpatient (CLI) | payer OTHER, SELFPAY ==
[2023-08-27 13:43] LABS: Bacteria 0 SEEN /hpf (None Seen); Mucous, Urine 0 SEEN /hpf (<or=2+); White Blood Cells 0 SEEN /hpf (0-5)
[2023-08-27 14:13] LABS: Absolute Lymphocyte Count 0.56 X10^3/uL (0.83-4.51); Absolute Neutrophil Count 2.8 X10^3/uL (2.0-7.7); Basophil# 0.01 X10^3/uL; Basophil% 0.3 % (0-1); Hematocrit 34.6 % (40-54); Hemoglobin 11.6 g/dL (13.0-16.5); Lymphocyte # 0.56 X10^3/ul (0.83-4.51); Mean Corp Hgb Conc 33.5 g/dL (32-36); Mean Corpuscular Volume 92.5 fL (80-94); Mean Platelet Vol. 9.2 fl (6.2-12.0); Monocyte# 0.36 X10^3/uL; Monocyte% 9.7 % (0-10); NRBC Flagged by Analyzer 0 % (0-5); Neutrophil # 2.78 X10^3/uL (2.7-7.7); Neutrophil % 74.5 % (47-70); POSITIVE DIFFERENTIAL YES; Platelet Count 204 K/mm3 (150-450); RBC Distribution Width CV 12.6 % (11.6-14.6); RBC Distribution Width SD 42.1 fl (35.1-43.9); Red Blood Count 3.74 M/mm3 (4.6-6.2); White Blood Count 3.7 K/mm3 (4.4-11.0)
[2023-08-27 14:22] LABS: Color, Urine Yellow (Yellow); Glucose, Dipstick Normal (Normal); Ketone-Dipstick Negative (Negative); Leukocyte Esterase-Dipstick Negative /ul (Negative); Nitrite-Dipstick Negative (Negative); Occult Blood-Urine 10 /ul (Negative); Protein-Dipstick 15 mg/dl (Negative); Specific Gravity, Urine 1.015 (1.002-1.030); Urine Bilirubin Dipstick Negative (Negative); Urine Clarity Clear (Clear); Urine Urobilinogen Normal (Normal)
[2023-08-27 14:35] LABS: Red Blood Cells-Urine 0-5 SEEN /hpf (0-5); Squamous Epithelial Cells - UA 0-5 SEEN /hpf (0-5)
[2023-08-27 15:01] LABS: Vitamin B12 415 pg/mL (211-911); Vitamin D,25 Hydroxy 27.2 ng/mL
[2023-08-27 15:42] LABS: AST(SGOT) 22 U/L (15-37); Alanine Aminotransfer ALT/SGPT 41 U/L (16-61); Albumin, Serum 3.5 g/dL (3.2-5.0); Alkaline Phosphatase 76 U/L (45-117); Anion Gap 4 (5-15); BUN 17 mg/dL (7-18); BUN/Creat Ratio 17.8 RATIO (10-20); Calcium,Total 9.3 mg/dL (8.5-10.1); Chloride 104 mmol/L (98-107); Creatinine, Serum 0.96 mg/dL (0.70-1.30); EST Glomerular Filtration Rate 84 mL/min (>60); Est Glom Filt Rate - Afr Amer 102 mL/min (>60); Ferritin 285 ng/mL (26-388); Globulin 3.5 g/dL (2.2-4.2); Glucose 114 mg/dL (74-106); Iron 89 ug/dL (65-175); Iron Binding Capacity,Total 337 ug/dL (250-450); Potassium 3.7 mmol/L (3.5-5.1); Sodium Level 136 mmol/L (136-145); Thyroid Stim Hormone (TSH) 2.16 uIU/mL (0.358-3.74); Uric Acid 4.4 mg/dL (3.5-7.2)
== END | disposition home or self-care (01) ==
LOC: LAB 13:39
PROVIDERS: PCP Family Medicine; Referring Provider Family Medicine; Visit Provider Family Medicine
DX: D64.9 Anemia, unspecified (principal); E55.9 Vitamin D deficiency, unspecified; I10 Essential (primary) hypertension
CPT/HCPCS: 80053; 81001; 82306; 82607; 82728; 82746; 83540; 83550; 84443; 84550; 85025

== ENCOUNTER → 2023-08-30 | Outpatient (CLI) | payer OTHER, SELFPAY ==
[2023-08-30 16:24] LABS: PSA,Total- Diagnostic < 0.01 ng/mL (0.0-4.0)
--- OUTSIDE RECORDS SUMMARY | 2023-08-30 21:59 | XMS RPT_ITS | CCD ---
Author Name Unknown Address [address] [place] [address] Organization [facility] Care Team Providers Care Certified Technician Name Role Phone Lisa Castro Unavailable Unavailable Allergies Allergy Classification Reported Allergen(s) Allergy Type Date of Onset Reaction(s) Facility (1 source) aspirin Drug Allergy 7 difficulty breathing [facility] Work Phone: (1 source) Cephalosporins (Antibiotic) drug allergy 7 skin peeling from hands/feet [facility] [employer] Work Phone: (1 source) nitroglycerin Drug Allergy 7 BP bottoms out [facility] [employer] Work Phone: Medications Completed/Discontinued Medications Medication Drug Class(es) Dates Sig (Normalized) Sig (Original) allopurinol 300 mg oral tablet (1 source) Xanthine Oxidase Inhibitor Start: 04-26-2017 ALLOPURINOL 300 MG TABS every night ALLOPURINOL [id number] Vladimir Gonzalez MD citalopram 20 mg oral tablet (1 source) Serotonin Reuptake Inhibitor Start: 04-26-2017 take 1 tablet by mouth once daily CELEXA 20 MG TABS One tablet by mouth daily CITALOPRAM HYDROBROMIDE [id number] Vladimir Gonzalez MD esomeprazole 40 mg delayed release oral capsule (1 source) Proton Pump Inhibitor Start: 04-26-2017 NEXIUM 40 MG CPDR every night ESOMEPRAZOLE MAGNESIUM [id number] Vladimir Gonzalez MD lisinopril 10 mg oral tablet (1 source) Angiotensin Converting Enzyme Inhibitor Start: 04-26-2017 take 2 tablets by mouth once daily LISINOPRIL 10 MG TABS Two tablets by mouth daily LISINOPRIL [id number] Vladimir Gonzalez MD montelukast 10 mg oral tablet (1 source) Leukotriene Receptor Antagonist Start: 04-26-2017 SINGULAIR 10 MG TABS every night MONTELUKAST SODIUM [id number] Vladimir Gonzalez MD Problems Active Problems Problem Classification Problem Date Documented Date Episodic/Chronic Anxiety disorders (1 source) Mixed anxiety and depressive disorder; Translations: [Other specified anxiety disorders] Onset: 04-26-2017 04-26-2017 Chronic Asthma (1 source) Asthma; Translations: [Unspecified asthma, uncomplicated] Onset: 04-26-2017 04-26-2017 Chronic Esophageal disorders (1 source) Gastroesophageal reflux disease; Translations: [Gastro-esophageal reflux disease without esophagitis] Onset: 04-26-2017 04-26-2017 Chronic Essential hypertension (1 source) Hypertensive disorder; Translations: [Essential (primary) hypertension] Onset: 04-26-2017 04-26-2017 Chronic Gout and other crystal arthropathies (1 source) Gout; Translations: [Gout, unspecified] Onset: 04-26-2017 04-26-2017 Chronic Unclassified (1 source) Sleep apnea; Translations: [Sleep apnea, unspecified] Onset: 04-26-2017 04-26-2017 Chronic Past or Other Problems Problem Classification Problem Date Documented Da te Episodic/Chronic Abdominal pain (1 source) Epigastric pain; Translations: [Epigastric pain] Onset: 04-26-2017 04-26-2017 Episodic Anal and rectal conditions (1 source) Anorectal fistula; Translations: [Anal fistula] Onset: 04-26-2017 04-26-2017 Episodic Hemorrhoids (1 source) Hemorrhoids; Translations: [Unspecified hemorrhoids] Onset: 04-26-2017 04-26-2017 Episodic Other and unspecified benign neoplasm (1 source) Personal history of colonic polyps; Translations: [Personal history of colonic polyps] Onset: 04-26-2017 04-26-2017 Episodic Results Test Name Value Interpretation Reference Range Facil ity Vital Signs Date Time Vital Sign Value Performing Clinician Facility 04-26-2017 07:43-0400 BMI (Body Mass Index) 31.97 kg/m2 Lisa Castro [facility] Work Phone: 04-26-2017 07:43-0400 Body Temperature 98.6 [degF] [facility] Work Phone: 04-26-2017 07:43-0400 BP Diastolic 77 mm[Hg] [facility] Work Phone: 04-26-2017 07:43-0400 BP Systolic 129 mm[Hg] [facility] Work Phone: 04-26-2017 07:43-0400 Height 172.72 cm [facility] Work Phone: 04-26-2017 07:43-0400 Pulse (Heart Rate) 86 /min [facility] Work Phone: 04-26-2017 07:43-0400 Respiratory Rate 22 /min [facility] Work Phone: 04-26-2017 07:43-0400 Weight 95.39 kg [facility] Work Phone: Plan of Treatment Date Care Activity Detail Author Start: 05-23-2017 End: 05-23-2017 Appointment Appointment [facility] Work Phone: Progress note 07-15-2021 Note Date & Type Note Facility 07-15-2021 Note HNO ID: [id number] Author: Krystina Willams MA Service: ? Author Type: Audit Analyst Type: Progress Notes Filed: 07/15/2021 4:18 PM Note Text: POPULATION HEALTH NAVIGATION OUTREACH Action/ PCP OFF BOARDING OUTREACH Attempt # 1 LMOVM Attempt # 2 Sent [employer] Message. Encounter closed. Contact made with patient or family member? NO Pt identified by name and : NO Outreach Outcome/Action Unable to reach patient: Left message [employer] message sent Reason for Outreach Attribution: Provider Off-boarding Payer: Payor: MMO / Plan: MMO TPA / Product Type: PPO / Care Gap Reviewed:: Annual Wellness visit Controlling Blood Pressure Flu vaccine Reminder: Reminder note to check Health Maintenance for items below Health Maintenance items due: COVID-19 VACCINE(1) Never done SPIROMETRY Never done HEPATITIS C SCREENING Never done HIV SCREENING Never done BP CONTROLLED (<130/80) Never done SHINGRIX VACCINE(1 of 2) Never done DTAP,TDAP,TD(2 - Tdap) due on 06/16/2011 PROSTATE CANCER SCREENING DISCUSSION due on 05/01/2016 DEPRESSION SCREENING due on 04/29/2020 INFLUENZA(1) due on 03/02/2021 ANNUAL PCP TEAM CHRONIC DISEASE VISIT due on 03/18/2021 Krystina Willams MA July 15, 2021 4:15 PM [facility] Clinical Note 07-15-2021 Note Date & Type Note Facility 07-15-2021 Note Patient Outreach (NE TNAV) HAWK ZAYAS ([id number]) 1960 M Date Time Provider Department 07/15/21 KRYSTINA WILLAMS During your visit today, we recorded the following information about you: Krystina Willams MA 07/15/2021 4:18 PM Signed POPULATION HEALTH NAVIGATION OUTREACH Action/I PCP OFF BOARDING OUTREACH Attempt # 1 LMOVM Attempt # 2 Sent [employer] Message. Encounter closed. Contact made with patient or family member? NO Pt identified by name and : NO Outreach Outcome/Action Unable to reach patient: Left message [employer] message sent Reason for Outreach Attribution: Provider Off-boarding Payer: Payor: MMO / Plan: MMO TPA / Product Type: PPO / Care Gap Reviewed:: Annual Wellness visit Controlling Blood Pressure Flu vaccine Reminder: Reminder note to check Health Maintenance for items below Health Maintenance items due: COVID-19 VACCINE(1) Never done SPIROMETRY Never done HEPATITIS C SCREENING Never done HIV SCREENING Never done BP CONTROLLED (<130/80) Never done SHINGRIX VACCINE(1 of 2) Never done DTAP,TDAP,TD(2 - Tdap) due on 06/16/2011 PROSTATE CANCER SCREENING DISCUSSION due on 05/01/2016 DEPRESSION SCREENING due on 04/29/2020 INFLUENZA(1) due on 03/02/2021 ANNUAL PCP TEAM CHRONIC DISEASE VISIT due on 03/18/2021 Krystina Willams MA July 15, 2021 4:15 PM Allergies As of Date: 07/15/2021 Noted Allergy Reaction ASPIRIN 12/30/2003 CEPHALOSPORINS 12/30/2003 environmental [Other] 04/27/2008 Comments: Mold,Ragweed NITRO S.A. 02/18/2013 14 - Other: See Comments Comments: bp went low NSAIDS (NON-STEROIDAL ANTI-INFLAM*04/27/2008 Date Reviewed: 03/18/2020 Reviewed by: Christine Almanzar - Fully Assessed Reason for Visit: Population Health Navigation Outreach [3910] Cmt: Offboarding - Dr Carlos JOHNS Prescriptions as of 07/15/2021 - lisinopril-hydroCHLOROthiazide (PRINZIDE,ZESTORETIC) 20-12.5 mg per tablet Take 2 tablets by mouth once daily. - amLODIPine (NORVASC) 10 mg tablet Take 1 tablet by mouth once daily. - allopurinol (ZYLOPRIM) 300 mg tablet Take 1 tablet by mouth once daily. - atorvastatin (LIPITOR) 20 mg tablet TAKE 1 TABLET BY MOUTH EVERY NIGHT AT BEDTIME FOR CHOLESTEROL - fluticasone (FLONASE) 50 mcg/actuation nasal spray Use 2 Sprays in each nostril once daily. Rinse mouth after use. - montelukast (SINGULAIR) 10 mg tablet Take 1 tablet by mouth once daily. - citalopram (CELEXA) 20 mg tablet Take 1 tablet by mouth once daily. - esomeprazole (NEXIUM) 40 mg capsule Take 1 capsule by mouth once daily. - albuterol HFA (VENTOLIN HFA) 90 mcg/actuation inhaler Inhale 2 Puffs as instructed every 6 hours as needed. For wheezing/shortness of breath - hydrocortisone (ANUSOL-HC) 25 mg suppository 1 Suppository by RECTAL route twice daily as needed (hemorrhoids/rectal pain). - EPINEPHrine (EPIPEN) 0.3 mg/0.3 mL auto-injector Inject 0.3 mL subcutaneously as directed. FOR ALLERGIC REACTION. SEEK EMERGENCY MEDICAL CARE IMMEDIATELY AFTER USE. - budesonide-formoterol (SYMBICORT) 160-4.5 mcg/actuation inhaler INHALE 2 PUFFS BY MOUTH 2 TIMES A DAY - albuterol (PROVENTIL) 2.5 mg /3 mL (0.083 %) nebulizer solution one nebulized every 4 hours as needed for cough, wheezing, chest tightness or shortness of breath. - BIPAP Initiate BiPAP @ 11/7 cm of water with humidification. Mask (per patient preference) optional chin strap (if indicated) , filters, tubing, humidifier and lifetime supplies. - pramoxine-hydrocortisone (PROCTOFOAM-HC) rectal foam 1 Applicator by RECTAL route twice daily. 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] 12/30/2003 CHR SEROUS OM SIMP/NOS [H65.20] 06/08/2005 ADJUSTMENT DISORDER WITH DEPRESSED MOOD [F43.21]07/19/2005 MALAISE AND FATIGUE NEC [R53.81, R53.83] 06/08/2006 Sleep apnea [G47.30] 06/08/2006 RESTLESS LEGS SYNDROME [G25.81] 06/08/2006 Gout [M10.9] 12/01/2008 Essential Hypertension, Benign [I10] 06/15/2009 Thoracic arthritis [M47.814] 02/03/2013 Obesity [E66.9] 02/03/2013 Backache, unspecified [M54.9] 04/17/2014 Hyperlipidemia LDL goal <130 [E78.5] 01/07/2016 Osteoarthritis of spine with radiculopathy, cer*12/28/2017 Asthma with chronic obstructive pulmonary disea*03/18/2020 Seborrheic keratoses [L82.1] 03/18/2020 Encounter Status:Closed by KRYSTINA WILLAMS on 07/15/21 [facility] Summary Purpose Family History No Family History Records Found Advance Directives No Advanced Directives Records Found Additional Source Comments (unrecognized sect ion and content) No Status Records Found INFORMATION SOURCE (unrecogn ized section and content) FOR RECORDS PERTAINING TO PATIENTS WHO ARE OR HAVE BEEN ENROLLED IN A CHEMICAL DEPENDENCY/SUBSTANCEABUSE PROGRAM, SOME INFORMATION MAY BE OMITTED. This clinical summary was aggregated from multiple sources. Caution should be exercised in using it in the provision of clinical care. This summary normalizes information from multiple sources, and as a consequence, information in this document may materially change the coding, format and clinical context of patient data. In addition, data may be omitted in some cases. CLINICAL DECISIONS SHOULD BE BASED ON THE PRIMARY CLINICAL RECORDS. [facility]. provides no warranty or guarantee of the accuracy or completeness of information in this document.
== END | disposition home or self-care (01) ==
PROVIDERS: PCP Family Medicine; Referring Provider Nurse Practitioner; Visit Provider Nurse Practitioner
DX: C61 Malignant neoplasm of prostate (principal)
CPT/HCPCS: 36415; 84153

== ENCOUNTER 2023-10-02 09:09 | Day surgery (SDC) | payer OTHER, SELFPAY ==
[2023-10-02] MEDS: Lactated Ringers 1,000 ML 15 ML IV (09:40)
[2023-10-02 09:57] VITALS: BP 156/98; PULSE 96; RESP 18; TEMP 36.2; O2SAT 100; BMI 35.0
--- NOTE | 2023-10-02 10:15 | EGD_PTH ---
PATIENT: HAWK ZAYAS LOC: EN U#:[id number] AGE/SX: 63/M ROOM: RE10/02/[address]: Dr. Vladimir Gonzalez MD : 1960 BED: DIS: 10/02/2023 SPEC #: [id number] RECD: 10/02/23 13:23 STATUS: CRUZ HOME #: [id number] REID: 10/02/23 10:[address]: Vladimir Gonzalez DEPT: SURGICAL PATHOLOGY RECD BY: Shanna French ENTERED: 10/02/23 13:43 SP TYPE: EGD BIOPSY OT DR: Dr. Justin Arita MD Tissues: A - Duodenum, NOS B - Gastric mucous membrane C - Esophagus, NOS D - Esophagus, NOS E - Esophagus, NOS F - Esophagus, NOS G - Ascending colon H - Transverse colon I - Transverse colon J - Descending colon K - Rectum, NOS Procedures: Surgery Specimen Level IV HEADER OPERATION: Colonoscopy, EGD, Biopsy, Polypectomy PRE-OP DIAGNOSIS: Personal history of colonic polyps, [id number], GERD TISSUE SUBMITTED: A-Duodenum biopsy, B-Antrum biopsy, C- Distal esophagus biopsy, D- Greater curvature polyp biopsy, E- Mid esophagus biopsy, F- Proximal esophagus polyp biopsy, G- Proximal ascending polyp biopsy, H- Mid transverse polyp biopsy, I- Distal transverse polyp, J- Descending polyp biopsy and snare, K- Rectal polyp biopsy MICROSCOPIC DIAGNOSIS A. Duodenum, biopsy: A fragment of duodenal mucosa, no pathologic diagnosis. B. Antrum, biopsy: Mild gastritis. See microscopic description and comment. C. Distal esophagus, biopsy: Fragments of gastroesophageal mucosa with chronic inflammation. Intestinal metaplasia (goblet cell metaplasia) not identified. See comment. D. Greater curvature polyp, biopsy: A fragment of mixed hyperplastic/inflammatory and fundic gland polyp. E. Mid esophagus, biopsy: A fragment of benign squamous epithelium. F. Proximal esophageal polyp, biopsy: A fragment of benign squamous epithelium. G. Proximal ascending polyp, biopsy: Fragments of tubular adenoma. H. Mid transverse colon polyp, biopsy: Tubular adenoma. I. Distal transverse colon polyp, biopsy: Fragments of tubular adenoma. J. Descending colon polyp, biopsy: Fragments of tubular adenoma. K. Rectal polyp, biopsy: Fragments of tubular adenoma. SJ/mr 10/03/23 COMMENT B. The results of immunohistochemistry for Helicobacter pylori will be reported separately ([id number]). C. Alcian blue/PAS stain with matched control is used in the evaluation of the specimen. MICROSCOPIC DESCRIPTION Slides are reviewed. B. The specimen shows fragments of gastric mucosa with chronic inflammatory cell infiltrates in the lamina propria consisting of lymphocytes and plasma cells, consistent with mild chronic gastritis. GROSS DESCRIPTION A. Received in fixative is one container labeled with the patient's name and designated Duodenum biopsy. The specimen consists of one irregular fragment of light larson soft tissue that measures 0.4 x 0.3 x 0.1 cm. The specimen is totally submitted in one cassette. B. Received in fixative is one container labeled with the patient's name and designated Antrum biopsy. The specimen consists of one irregular fragment of light larson soft tissue that measures 0.3 x 0.3 x 0.1 cm. The specimen is totally submitted in one cassette. C. Received in fixative is one container labeled with the patient's name and designated Distal esophagus biopsy. The specimen consists of multiple irregular fragments of light larson soft tissue that in aggregate measure 1.5 x 0.3 x 0.1 cm. The specimen is totally submitted in one cassette. D. Received in fixative is one container labeled with the patient's name and designated Greater curvature polyp biopsy. The specimen consists of one irregular fragment of light larson soft tissue that measures 0.4 x 0.3 x 0.1 cm. The specimen is totally submitted in one cassette. E. Received in fixative is one container labeled with the patient's name and designated Mid esophagus biopsy. The specimen consists of one irregular fragment of light larson soft tissue that measures 0.2 x 0.2 x 0.1 cm. The specimen is totally submitted in one cassette. F. Received in fixative is one container labeled with the patient's name and designated Proximal esophagus polyp biopsy. The specimen consists of one irregular fragment of light larson soft tissue that measures 0.3 x 0.2 x 0.1 cm. The specimen is totally submitted in one cassette. G. Received in fixative is one container labeled with the patient's name and designated Proximal ascending polyp biopsy. The specimen consists of multiple irregular fragments of light larson soft tissue that in aggregate measure 0.6 x 0.2 x 0.1 cm. The specimen is totally submitted in one cassette. H. Received in fixative is one container labeled with the patient's name and designated Mid transverse polyp biopsy. The specimen consists of one irregular fragment of light larson soft tissue that measures 0.2 x 0.2 x 0.1 cm. The specimen is totally submitted in one cassette. I. Received in fixative is one container labeled with the patient's name and designated Distal transverse polyp. The specimen consists of a larson- pink polyp measuring 0.6 x 0.5 x 0.2cm. Also present in the container is a small fragment of larson soft tissue measuring 0.2 x 0.2 x 0.1cm. The entire specimen is submitted in one cassette. J. Received in fixative is one container labeled with the patient's name and designated Descending polyp biopsy. The specimen consists of multiple irregular fragments of light larson soft tissue that in aggregate measure 1.2 x 0.3 x 0.1 cm. The specimen is totally submitted in one cassette. K. Received in fixative is one container labeled with the patient's name and designated Rectal polyp biopsy. The specimen consists of two irregular fragments of light larson soft tissue that in aggregate measure 0.4 x 0.3 x 0.1 cm. The specimen is totally submitted in one cassette. MOSES/ 10/02/23 TC:1 CPT: 61670f45, 28426
--- NOTE | 2023-10-02 10:15 | IMM_PTH ---
PATIENT: HAWK ZAYAS LOC: EN U#:[id number] AGE/SX: 63/M ROOM: RE10/02/[address]: Dr. Vladimir Gonzalez MD : 1960 BED: DIS: 10/02/2023 SPEC #: [id number] RECD: 10/02/23 13:47 STATUS: CRUZ REKristina #: [id number] REID: 10/02/23 10:[address]: Vladimir Gonzalez DEPT: IMMUNOHISTOCHEMISTRY RECD BY: Navneet Singh ENTERED: 10/02/23 13:48 SP TYPE: IMMUNO OTHR DR: Dr. Justin Arita MD Tissues: B - Stomach, NOS Procedures: H Pylori (initial) PHYSICIAN & INSTITUTION [place] [id number] SPECIMEN INFORMATION: Tissue Source: B- Antrum biopsy Clinical Info: Personal history of colonic polyps, Aeceusw-nv-gyg, GERD Specimen Number: [id number] CPT code: 10860 METHODOLOGY: Deparaffinized sections of prefer/formalin-fixed tissue or PAP/DQ stained slides are incubated with monoclonal/polyclonal antibodies/oligonucleotide probes. Localization is made via biotin free immunoperoxidase method. Appropriate controls are performed and reacted as expected. Results on target cell population are indicated in the following table: RESULTS: ANTIBODY / CLONE RESULT Block B H Pylori (polyclonal) negative These tests were developed and their performance characteristics determined by [facility]. They may not have been cleared or approved by the U.S. Food and Drug Administration. The FDA has determined that such clearance or approval is not necessary. The above immunohistochemical/dualISH markers are ordered and reviewed by the Pathologist. INTERPRETATION: B. Antrum biopsy: Negative for Helicobacter pylori organisms. MOSES/ 10/03/23
[2023-10-02 11:15] VITALS: BP 125/85; BP 156/98; PULSE 75; RESP 16; TEMP 36.5; O2SAT 95
--- NOTE | 2023-10-02 11:16 | OP.CCLET_ITS ---
10/02/2023 Justin Arita [address] [place] [address] Re : Upper GI endoscopy procedure for Juan Jara Dear Dr. Arita This procedure was performed on Monday, October 02, 2023. My impressions and recommendations are as follows: Impressions : - Esophageal polyp(s) were found. Resected and retrieved. - Normal middle third of esophagus. Biopsied. - LA Grade A reflux esophagitis with no bleeding. Biopsied. - 1 cm hiatal hernia. - A few gastric polyps. Resected and retrieved. - Erythematous mucosa in the antrum. Biopsied. - Normal examined duodenum. Biopsied. Suspect distal esophagitis may be etiologic to the patient's dry food swallowing dysphagia. No strictures identified. Ongoing medical maximization of care patient will be notified of pathology results. Recommendations : - Resume previous diet. - Continue present medications. - Telephone my office for pathology results in 1 week. My findings are described in the full procedure note, which is enclosed. If I can be of further assistance, please feel free to contact me at Doctor phone number(s): Work: . Sincerely, Vladimir Gonzalez MD 10/02/2023 11:16:20 AM This report has been signed electronically.
--- NOTE | 2023-10-02 11:16 | OP.EGD_ITS ---
Patient Name: Juan Jara Procedure Date: 10/02/2023 10:29 AM Date of : 1960 Age: 63 Procedure: Upper GI endoscopy Indications: Dysphagia Providers: Vladimir Gonzalez MD Referring MD: Justin Arita Medicines: See the Anesthesia note for documentation of the administered medications Complications: No immediate complications. Procedure: Pre-Anesthesia Assessment: - Prior to the procedure, a History and Physical was performed, and patient medications and allergies were reviewed. The patient's tolerance of previous anesthesia was also reviewed. The risks and benefits of the procedure and the sedation options and risks were discussed with the patient. All questions were answered, and informed consent was obtained. Prior Anticoagulants: The patient has taken no anticoagulant or antiplatelet agents. ASA Grade Assessment: II - A patient with mild systemic disease. After reviewing the risks and benefits, the patient was deemed in satisfactory condition to undergo the procedure. After obtaining informed consent, the endoscope was passed under direct vision. Throughout the procedure, the patient's blood pressure, pulse, and oxygen saturations were monitored continuously. The gastroscope was introduced through the mouth, and advanced to the second part of duodenum. The upper GI endoscopy was accomplished without difficulty. The patient tolerated the procedure well. Scope In: 10:35:02 AM Scope Out: 10:42:36 AM Total Procedure Duration Time 0 hours 7 minutes 34 seconds Findings: A few polyps with no bleeding were found 16 cm from the incisors. The polyp was removed with a cold biopsy forceps. Resection and retrieval were complete. The middle third of the esophagus was normal. Biopsies were taken with a cold forceps for histology. LA Grade A (one or more mucosal breaks less than 5 mm, not extending between tops of 2 mucosal folds) esophagitis with no bleeding was found 39 cm from the incisors. Biopsies were taken with a cold forceps for histology. A 1 cm hiatal hernia was present. A few sessile polyps with no bleeding and no stigmata of recent bleeding were found on the greater curvature of the stomach. The polyp was removed with a cold biopsy forceps. Resection and retrieval were complete. Diffuse mildly erythematous mucosa without bleeding was found in the gastric antrum. Biopsies were taken with a cold forceps for histology. The examined duodenum was normal. Biopsies were taken with a cold forceps for histology. Impression: - Esophageal polyp(s) were found. Resected and retrieved. - Normal middle third of esophagus. Biopsied. - LA Grade A reflux esophagitis with no bleeding. Biopsied. - 1 cm hiatal hernia. - A few gastric polyps. Resected and retrieved. - Erythematous mucosa in the antrum. Biopsied. - Normal examined duodenum. Biopsied. Suspect distal esophagitis may be etiologic to the patient's dry food swallowing dysphagia. No strictures identified. Ongoing medical maximization of care patient will be notified of pathology results. Recommendation: - Resume previous diet. - Continue present medications. - Telephone my office for pathology results in 1 week. Procedure Code(s): --- Professional --- 42094, Esophagogastroduodenoscopy, flexible, transoral; with biopsy, single or multiple Diagnosis Code(s): --- Professional --- K22.81, Esophageal polyp K21.00, Gastro-esophageal reflux disease with esophagitis, without bleeding K44.9, Diaphragmatic hernia without obstruction or gangrene K31.7, Polyp of stomach and duodenum K31.89, Other diseases of stomach and duodenum R13.10, Dysphagia, unspecified CPT copyright 2021 [employer]. All rights reserved. The codes documented in this report are preliminary and upon medical insurance coder review may be revised to meet current compliance requirements. Vladimir Gonzalez MD 10/02/2023 11:16:20 AM This report has been signed electronically. Number of Addenda: 0 Note Initiated On: 10/02/2023 10:29 AM
[2023-10-02 11:20] VITALS: BP 126/71; BP 156/98; PULSE 75; RESP 16; O2SAT 93
--- NOTE | 2023-10-02 11:21 | OP.COLON_ITS ---
Patient Name: Juan Jara Procedure Date: 10/02/2023 10:42 AM Date of : 1960 Age: 63 Procedure: Colonoscopy Indications: High risk colon cancer surveillance: Personal history of colonic polyps Providers: Vladimir Gonzalez MD Referring MD: Justin Arita Medicines: See the Anesthesia note for documentation of the administered medications Patient Profile: Last Colonoscopy: May 2017. Complications: No immediate complications. Procedure: Pre-Anesthesia Assessment: - Prior to the procedure, a History and Physical was performed, and patient medications and allergies were reviewed. The patient's tolerance of previous anesthesia was also reviewed. The risks and benefits of the procedure and the sedation options and risks were discussed with the patient. All questions were answered, and informed consent was obtained. Prior Anticoagulants: The patient has taken no anticoagulant or antiplatelet agents. ASA Grade Assessment: II - A patient with mild systemic disease. After reviewing the risks and benefits, the patient was deemed in satisfactory condition to undergo the procedure. After I obtained informed consent, the scope was passed under direct vision. Throughout the procedure, the patient's blood pressure, pulse, and oxygen saturations were monitored continuously. The colonoscope was introduced through the anus and advanced to the cecum, identified by appendiceal orifice and ileocecal valve. The colonoscopy was performed with moderate difficulty due to inadequate bowel prep. The patient tolerated the procedure well. The quality of the bowel preparation was inadequate. The ileocecal valve and the appendiceal orifice were photographed. Scope In: 10:45:23 AM Scope Withdrawal Time 0 hours 20 minutes 21 seconds Scope Out: 11:09:11 AM Total Procedure Duration Time 0 hours 23 minutes 48 seconds Findings: Hemorrhoids were found on perianal exam. An 8 mm polyp was found in the proximal ascending colon. The polyp was sessile. The polyp was removed with a cold biopsy forceps. Resection and retrieval were complete. A 5 mm polyp was found in the mid transverse colon. The polyp was sessile. The polyp was removed with a cold biopsy forceps. Resection and retrieval were complete. An 8 mm polyp was found in the distal transverse colon. The polyp was sessile. The polyp was removed with a hot snare. Resection and retrieval were complete. An 8 mm polyp was found in the mid descending colon. The polyp was sessile. The polyp was removed with a hot snare. Resection and retrieval were complete. A 5 mm polyp was found in the mid rectum. The polyp was sessile. The polyp was removed with a cold biopsy forceps. Resection and retrieval were complete. Impression: - Preparation of the colon was inadequate. - Hemorrhoids found on perianal exam. - One 8 mm polyp in the proximal ascending colon, removed with a cold biopsy forceps. Resected and retrieved. - One 5 mm polyp in the mid transverse colon, removed with a cold biopsy forceps. Resected and retrieved. - One 8 mm polyp in the distal transverse colon, removed with a hot snare. Resected and retrieved. - One 8 mm polyp in the mid descending colon, removed with a hot snare. Resected and retrieved. - One 5 mm polyp in the mid rectum, removed with a cold biopsy forceps. Resected and retrieved. Recommendation: - Repeat colonoscopy in 6 months for surveillance. The bowel prep was inadequate and the patient had multiple polyps. - Telephone my office for pathology results in 1 week. - Continue present medications. Procedure Code(s): --- Professional --- 01733, Colonoscopy, flexible; with removal of tumor(s), polyp(s), or other lesion(s) by snare technique 10916, 59, Colonoscopy, flexible; with biopsy, single or multiple Diagnosis Code(s): --- Professional --- Z86.010, Personal history of colonic polyps K64.9, Unspecified hemorrhoids D12.2, Benign neoplasm of ascending colon D12.3, Benign neoplasm of transverse colon (hepatic flexure or splenic flexure) D12.4, Benign neoplasm of descending colon D12.8, Benign neoplasm of rectum CPT copyright 2021 [employer]. All rights reserved. The codes documented in this report are preliminary and upon promotions representative review may be revised to meet current compliance requirements. Vladimir Gonzalez MD 10/02/2023 11:21:08 AM This report has been signed electronically. Number of Addenda: 0 Note Initiated On: 10/02/2023 10:42 AM
--- NOTE | 2023-10-02 11:21 | OP.CCLET_ITS ---
10/02/2023 Justin Arita [address] [place] [address] Re : Colonoscopy procedure for Juan Jara Dear Dr. Arita This procedure was performed on Monday, October 02, 2023. My impressions and recommendations are as follows: Impressions : - Preparation of the colon was inadequate. - Hemorrhoids found on perianal exam. - One 8 mm polyp in the proximal ascending colon, removed with a cold biopsy forceps. Resected and retrieved. - One 5 mm polyp in the mid transverse colon, removed with a cold biopsy forceps. Resected and retrieved. - One 8 mm polyp in the distal transverse colon, removed with a hot snare. Resected and retrieved. - One 8 mm polyp in the mid descending colon, removed with a hot snare. Resected and retrieved. - One 5 mm polyp in the mid rectum, removed with a cold biopsy forceps. Resected and retrieved. Recommendations : - Repeat colonoscopy in 6 months for surveillance. The bowel prep was inadequate and the patient had multiple polyps. - Telephone my office for pathology results in 1 week. - Continue present medications. My findings are described in the full procedure note, which is enclosed. If I can be of further assistance, please feel free to contact me at Doctor phone number(s): Work: . Sincerely, Vladimir Gonzalez MD 10/02/2023 11:21:08 AM This report has been signed electronically.
[2023-10-02 11:25] VITALS: BP 127/75; BP 156/98; PULSE 75; RESP 16; TEMP 36.4; O2SAT 94
[2023-10-02 11:45] VITALS: BP 156/98
--- NOTE | 2023-10-04 06:16 | HP.PCM_ITS ---
History and Physical Date of Admission: 10/02/23 Visit Reasons: COLONOSCOPY Chief Complaint: C-Scope consult [place] Mixer Operator Required: No Accompanied by: Is patient in pain?: No Allergies aspirin Allergy (Verified 07/09/23 09:05) AnaphylaxisCephalosporins Allergy (Verified 07/09/23 09:05) Othernitroglycerin Allergy (Verified 07/09/23 09:05) Other Medications allopurinol 300 mg tablet 300 mg PO QHS 05/16/17 [History Confirmed 07/09/23] ascorbic acid (vitamin C) 500 mg tablet 1,000 mg PO QHS 05/16/17 [History Confirmed 07/09/23] citalopram 20 mg tablet 20 mg PO QHS 05/16/17 [History Confirmed 07/09/23] folic acid 0.8 mg capsule 0.8 mg PO QHS 05/16/17 [History Confirmed 07/09/23] multivitamin 1 tab PO DAILY 06/02/21 [History Confirmed 07/09/23] zinc citrate 16.7 mg chewable tablet 50 mg PO DAILY 06/02/21 [History Confirmed 07/09/23] esomeprazole magnesium 40 mg capsule,delayed release 40 mg PO DAILY 06/29/21 [History Confirmed 07/09/23] ferrous sulfate 325 mg (65 mg iron) tablet 325 mg PO DAILY 06/29/21 [History Confirmed 07/09/23] azelastine 137 mcg-fluticasone 50 mcg/spray nasal spray 1 spray intranasal BID #23 grams 09/26/21 [Rx Confirmed 07/09/23] atorvastatin 20 mg tablet 20 mg PO DAILY 11/01/21 [History Confirmed 07/09/23] montelukast 10 mg tablet 10 mg PO QHS #90 tabs 12/22/21 [Rx Confirmed 07/09/23] benralizumab 30 mg/mL subcutaneous syringe (Fasenra) 30 mg subcut QMONTH 04/05/22 [History Confirmed 07/09/23] docusate sodium 100 mg capsule (Colace) 100 mg PO BID #20 caps 04/12/22 [Rx Confirmed 07/09/23] fluticasone fur. 200 mcg-umeclid 62.5 mcg-vilant 25 mcg inhalat.powder (Trelegy Ellipta) 1 inh inhalation DAILY 11/06/22 [History Confirmed 07/09/23] alprazolam 0.5 mg tablet 0.5 mg PO DAILY #4 tabs 02/12/23 [Rx Confirmed 07/09/23] albuterol sulfate 90 mcg/actuation aerosol inhaler 1 puff inhalation Q6H PRN asthma #8.5 grams 04/30/23 [Rx Confirmed 07/09/23] lisinopril 20 mg tablet 20 mg PO DAILY 06/21/23 [History Confirmed 07/09/23] PFSH Medical History (Updated 07/09/23 @ 09:03 by Regine Guajardo) Acute frontal sinusitis, unspecified Alcohol use Anemia Anxiety Arthritis Asthma BiPAP (biphasic positive airway pressure) dependence Cancer Chronic neck and back pain COPD (chronic obstructive pulmonary disease) Depression Diverticulosis Encounter for education Fatigue [id number] Former smoker Fracture GERD (gastroesophageal reflux disease) Gout High cholesterol History of echocardiogram History of edema History of renal disease History of steroid therapy History of stress test HTN (hypertension) HTN (hypertension) Low iron Personal history of colonic polyps Restless legs s/p fistulotomy Sleep apnea Wears glasses Surgical History (Updated 07/09/23 @ 09:04 by Regine Guajardo) History of prostatectomy History of rectal polypectomy History of tonsillectomy and adenoidectomy Hx of foot surgery S/P colonoscopy Family History Other Heart disease Kidney disease Social History Smoking Status: Never smoker second hand exposure: No alcohol intake: current Alcohol type: beer substance use type: former substance user Date of last use: Quit using cocaine 1986, used for about 10 years HPI HPI HPI: 63-year-old gentleman presents today. I have previously assisted him May 25, 2017 with fistulotomy and noncutting seton suture placement for fistula in ano. I most recently saw him on August 01, 2017. There appeared to be some chronic track at that time but it was not draining or irritated. No additional treatment was felt to be indicated at that time. Going back to May 23, 2017 I had performed a combined esophagogastroduodenoscopy and colonoscopy for him. I detected minimal antral gastritis and a moderate hiatal hernia. There was a pedunculated polyp in the distal descending colon and a sessile polyp in the mid sigmoid colon. The upper biopsies suggested mild gastritis and distal esophageal biopsies suspicious for eosinophilic esophagitis. The distal descending colon polyp was tubular adenoma as was the sigmoid colon polyp. H. pylori was negative. More recently the patient has been cared for by Dr. Carpio and Dr. Bill Awan and WILLY Linder for prostate cancer and the patient has had a radical prostatectomy with lymph node dissection. Because of a rising PSA he has undergone salvage radiation and medical treatment. Among his other medications he is on esomeprazole 40 mg daily. It is of note that the patient does have reflux and he is medication dependent. He occasionally has trouble swallowing dry foods crackers. He will occasionally have reflux particularly with spicy foods. He had somewhat of a change of bowel habits while undergoing radiation treatment for his prostate cancer. He is not currently noticing any bright red blood per rectum or melena. Because of his COPD he intermittently has to be placed on prednisone. His weight will vary and the prednisone unfortunately adds to the the weight. With all of the health issues he is found it hard to remain motivated with exercise. ROS General General: Yes weight change and fatigue; No appetite, colon cancer, breast cancer or weakness HEENT HEENT: No difficulty swallowing, eye injury, eye surgery, swollen glands or hoarseness Endo Endocrine: No thyroid disease, diabetes mellitus, thyroid cancer, Hair loss, heat intolerance or cold intolerance Skin Skin: Yes changing moles; No rash Breast Breast: No left breast lump, right breast lump, nipple discharge, breast pain, abnormal mammogram, abnormal US or breast enlargement Musc Musculoskeletal: Yes back problems, arthritis and gout; No rheumatoid arthritis or joint pain Cardio Cardiovascular: Yes high blood pressure; No murmur, pacemaker, heart disease, atrial fibrillation, heart attack, heart stent, palpitations, shortness of breat with exertion or chest pain Psych Psychiatric: Yes depression and anxiety; No hearing voices Resp Respiratory: Yes shortness of breath, Yes sleep apnea, Yes cough, Yes COPD, Yes asthma, No emphysema and No wheezing Gastro Gastrointestinal: No abdominal pain, No nausea or vomiting, No diarrhea, No constipation, No blood in stool, Yes acid reflux, Yes hemorrhoids, No ulcers, No gallbladder problem and No black,tarry stools Paulie Hematologic: No blood thinners, No blood disorders, No bleeding, No anemia and No blood clots Neuro Neurologic: No system reviewed and no additional complaints, except as documente d, No as per HPI, No abnormal gait, No abnormal hearing, No abnormal movements, No abnormal speech, No behavioral changes, No burning sensations, No confusion, No convulsions, No disequilibrium, No dizziness, No localized weakness, No frequent falls, No headache(s), No lack of coordination, No loss of vision, No memory loss, Yes numbness, No other visual disturbances, No radicular pain, No restless legs, No sensory deficit, No syncope, Yes tingling, No tremor(s), No weakness and No other Exam Const General: cooperative, comfortable and no acute distress Nutritional Appearance: obese HENMT Head: normal to inspection Eyes General: appearance normal, both eyes and all related structures Neck Neck: normal visual inspection Chest Other: Increased AP diameter Resp Effort & Inspection: normal respiratory effort Other: Transient slight left midlung wheeze Cardio Rate: regular rate Rhythm: regular rhythm GI Inspection: obesity Other: Overweight, unable to detect any internal organs, nontender, normal bowel sounds Musc Cervical Spine: normal cervical lordosis Skin General: no rashes or lesions noted Neuro General: patient alert, patient awake and patient oriented x3 Extrem General: no calf tenderness Other: Minimal bilateral extremity swelling Psych Appearance: grossly normal Assessment and Plan Assessment and Plan (1) Personal history of colonic polyps: Status: Acute (2) [id number]: Status: Acute (3) GERD (gastroesophageal reflux disease): Status: Acute Qualifiers: Esophagitis presence: esophagitis presence not specified Qualified Code(s): K21.9 - Gastro-esophageal reflux disease without esophagitis Plan: I recommend to the patient a esophagogastroduodenoscopy with possible biopsy. Discussed the history of biopsy showing eosinophilic esophagitis and has ongoing GERD symptoms and occasionally esophageal dysphagia. I recommended the patient a colonoscopy with possible biopsy or polypectomy as indicated. Previous colonoscopy was May 2017 and he had 2 adenomatous polyps in the left colon. He has had an opportunity to ask and have questions answered. He does have COPD. He had the fistula in ano remotely cared for and careful inspection will be pursued. He has had the recently treated recurrent prostate cancer status post radical prostatectomy and now status post radiation treatment. Careful inspection for changes will be noted. He has had an opportunity ask and have questions answered. I appreciate the ongoing option of assisting with his surgical care. Plan Copy: Dr Justin Gonzalez M.D., DeboraS. I have examined the patient and the H&P has been reviewed. There are no clinical changes since date of exam. Vladimir Gonzalez M.D., Ant.Julia.C.S.
== END 2023-10-02 12:03 | disposition home or self-care (01) ==
LOC: EN 09:10 → AC 09:12
PROVIDERS: PCP Family Medicine; Referring Provider Family Medicine; Visit Provider Surgery
PROC: 0DJD8ZZ Inspection of Lower Intestinal Tract, Via Natural or Artificial Opening Endoscopic (ICD-10-PCS; CPT 45378; principal; 2023-10-02 10:10)
DX: Z12.11 Encounter for screening for malignant neoplasm of colon (principal); J44.9 Chronic obstructive pulmonary disease, unspecified; K44.9 Diaphragmatic hernia without obstruction or gangrene; D13.0 Benign neoplasm of esophagus; K64.9 Unspecified hemorrhoids; K31.7 Polyp of stomach and duodenum; K31.89 Other diseases of stomach and duodenum; I10 Essential (primary) hypertension; E78.00 Pure hypercholesterolemia, unspecified; R13.10 Dysphagia, unspecified; K21.00 Gastro-esophageal reflux disease with esophagitis, without bleeding; F41.9 Anxiety disorder, unspecified; F32.A Depression, unspecified; G47.33 Obstructive sleep apnea (adult) (pediatric); K29.70 Gastritis, unspecified, without bleeding; E66.9 Obesity, unspecified; D12.4 Benign neoplasm of descending colon; D12.3 Benign neoplasm of transverse colon; D12.8 Benign neoplasm of rectum; Z86.010 Personal history of colon polyps; Z79.899 Other long term (current) drug therapy; Z79.51 Long term (current) use of inhaled steroids
CPT/HCPCS: 43239; 45380; 45385; 88305; 88342; J7120; J2405

== ENCOUNTER 2023-12-17 06:21 | Day surgery (SDC) | payer OTHER, SELFPAY ==
[2023-12-17 06:36] VITALS: BP 129/79; PULSE 72; RESP 20; TEMP 36.1; O2SAT 96; BMI 36.1
[2023-12-17] MEDS: Lactated Ringers 1,000 ML 15 ML IV (06:42)
--- NOTE | 2023-12-17 06:56 | PCM.HP.BLA ---
History and Physical Date of Admission: 12/17/23 Patient presents for repeat attempt at a colonoscopy today. Previously in September I attempted to do an upper and lower scope. We succeeded with the upper endoscopy. Lower endoscopy had an antibiotic pouch prep. I was able to remove few benign polyps. He returns now for repeat exam. 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: No Accompanied by: Is patient in pain?: No Allergies aspirin Allergy (Verified 07/09/23 09:05) AnaphylaxisCephalosporins Allergy (Verified 07/09/23 09:05) Othernitroglycerin Allergy (Verified 07/09/23 09:05) Other Medications allopurinol 300 mg tablet 300 mg PO QHS 05/16/17 [History Confirmed 07/09/23] ascorbic acid (vitamin C) 500 mg tablet 1,000 mg PO QHS 05/16/17 [History Confirmed 07/09/23] citalopram 20 mg tablet 20 mg PO QHS 05/16/17 [History Confirmed 07/09/23] folic acid 0.8 mg capsule 0.8 mg PO QHS 05/16/17 [History Confirmed 07/09/23] multivitamin 1 tab PO DAILY 06/02/21 [History Confirmed 07/09/23] zinc citrate 16.7 mg chewable tablet 50 mg PO DAILY 06/02/21 [History Confirmed 07/09/23] esomeprazole magnesium 40 mg capsule,delayed release 40 mg PO DAILY 06/29/21 [History Confirmed 07/09/23] ferrous sulfate 325 mg (65 mg iron) tablet 325 mg PO DAILY 06/29/21 [History Confirmed 07/09/23] azelastine 137 mcg-fluticasone 50 mcg/spray nasal spray 1 spray intranasal BID #23 grams 09/26/21 [Rx Confirmed 07/09/23] atorvastatin 20 mg tablet 20 mg PO DAILY 11/01/21 [History Confirmed 07/09/23] montelukast 10 mg tablet 10 mg PO QHS #90 tabs 12/22/21 [Rx Confirmed 07/09/23] benralizumab 30 mg/mL subcutaneous syringe (Fasenra) 30 mg subcut QMONTH 04/05/22 [History Confirmed 07/09/23] docusate sodium 100 mg capsule (Colace) 100 mg PO BID #20 caps 04/12/22 [Rx Confirmed 07/09/23] fluticasone fur. 200 mcg-umeclid 62.5 mcg-vilant 25 mcg inhalat.powder (Trelegy Ellipta) 1 inh inhalation DAILY 11/06/22 [History Confirmed 07/09/23] alprazolam 0.5 mg tablet 0.5 mg PO DAILY #4 tabs 02/12/23 [Rx Confirmed 07/09/23] albuterol sulfate 90 mcg/actuation aerosol inhaler 1 puff inhalation Q6H PRN asthma #8.5 grams 04/30/23 [Rx Confirmed 07/09/23] lisinopril 20 mg tablet 20 mg PO DAILY 06/21/23 [History Confirmed 07/09/23] PFSH Medical History (Updated 07/09/23 @ 09:03 by Regine Guajardo) Acute frontal sinusitis, unspecified Alcohol use Anemia Anxiety Arthritis Asthma BiPAP (biphasic positive airway pressure) dependence Cancer Chronic neck and back pain COPD (chronic obstructive pulmonary disease) Depression Diverticulosis Encounter for education Fatigue [id number] Former smoker Fracture GERD (gastroesophageal reflux disease) Gout High cholesterol History of echocardiogram History of edema History of renal disease History of steroid therapy History of stress test HTN (hypertension) HTN (hypertension) Low iron Personal history of colonic polyps Restless legs s/p fistulotomy Sleep apnea Wears glasses Surgical History (Updated 07/09/23 @ 09:04 by Regine Guajardo) History of prostatectomy History of rectal polypectomy History of tonsillectomy and adenoidectomy Hx of foot surgery S/P colonoscopy Family History Other Heart disease Kidney disease Social History Smoking Status: Never smoker second hand exposure: No alcohol intake: current Alcohol type: beer substance use type: former substance user Date of last use: Quit using cocaine 1986, used for about 10 years HPI HPI HPI: 63-year-old gentleman presents today. I have previously assisted him May 25, 2017 with fistulotomy and noncutting seton suture placement for fistula in ano. I most recently saw him on August 01, 2017. There appeared to be some chronic track at that time but it was not draining or irritated. No additional treatment was felt to be indicated at that time. Going back to May 23, 2017 I had performed a combined esophagogastroduodenoscopy and colonoscopy for him. I detected minimal antral gastritis and a moderate hiatal hernia. There was a pedunculated polyp in the distal descending colon and a sessile polyp in the mid sigmoid colon. The upper biopsies suggested mild gastritis and distal esophageal biopsies suspicious for eosinophilic esophagitis. The distal descending colon polyp was tubular adenoma as was the sigmoid colon polyp. H. pylori was negative. More recently the patient has been cared for by Dr. Carpio and Dr. Bill Awan and WILLY Linder for prostate cancer and the patient has had a radical prostatectomy with lymph node dissection. Because of a rising PSA he has undergone salvage radiation and medical treatment. Among his other medications he is on esomeprazole 40 mg daily. It is of note that the patient does have reflux and he is medication dependent. He occasionally has trouble swallowing dry foods crackers. He will occasionally have reflux particularly with spicy foods. He had somewhat of a change of bowel habits while undergoing radiation treatment for his prostate cancer. He is not currently noticing any bright red blood per rectum or melena. Because of his COPD he intermittently has to be placed on prednisone. His weight will vary and the prednisone unfortunately adds to the the weight. With all of the health issues he is found it hard to remain motivated with exercise. ROS General General: Yes weight change and fatigue; No appetite, colon cancer, breast cancer or weakness HEENT HEENT: No difficulty swallowing, eye injury, eye surgery, swollen glands or hoarseness Endo Endocrine: No thyroid disease, diabetes mellitus, thyroid cancer, Hair loss, heat intolerance or cold intolerance Skin Skin: Yes changing moles; No rash Breast Breast: No left breast lump, right breast lump, nipple discharge, breast pain, abnormal mammogram, abnormal US or breast enlargement Musc Musculoskeletal: Yes back problems, arthritis and gout; No rheumatoid arthritis or joint pain Cardio Cardiovascular: Yes high blood pressure; No murmur, pacemaker, heart disease, atrial fibrillation, heart attack, heart stent, palpitations, shortness of breat with exertion or chest pain Psych Psychiatric: Yes depression and anxiety; No hearing voices Resp Respiratory: Yes shortness of breath, Yes sleep apnea, Yes cough, Yes COPD, Yes asthma, No emphysema and No wheezing Gastro Gastrointestinal: No abdominal pain, No nausea or vomiting, No diarrhea, No constipation, No blood in stool, Yes acid reflux, Yes hemorrhoids, No ulcers, No gallbladder problem and No black,tarry stools Paulie Hematologic: No blood thinners, No blood disorders, No bleeding, No anemia and No blood clots Neuro Neurologic: No system reviewed and no additional complaints, except as documented, No as per HPI, No abnormal gait, No abnormal hearing, No abnormal movements, No abnormal speech, No behavioral changes, No burning sensations, No confusion, No convulsions, No disequilibrium, No dizziness, No localized weakness, No frequent falls, No headache(s), No lack of coordination, No loss of vision, No memory loss, Yes numbness, No other visual disturbances, No radicular pain, No restless legs, No sensory deficit, No syncope, Yes tingling, No tremor(s), No weakness and No other Exam Const General: cooperative, comfortable and no acute distress Nutritional Appearance: obese HENMT Head: normal to inspection Eyes General: appearance normal, both eyes and all related structures Neck Neck: normal visual inspection Chest Other: Increased AP diameter Resp Effort & Inspection: normal respiratory effort Other: Transient slight left midlung wheeze Cardio Rate: regular rate Rhythm: regular rhythm GI Inspection: obesity Other: Overweight, unable to detect any internal organs, nontender, normal bowel sounds Musc Cervical Spine: normal cervical lordosis Skin General: no rashes or lesions noted Neuro General: patient alert, patient awake and patient oriented x3 Extrem General: no calf tenderness Other: Minimal bilateral extremity swelling Psych Appearance: grossly normal Assessment and Plan Assessment and Plan (1) Personal history of colonic polyps: Status: Acute (2) [id number]: Status: Acute I recommended the patient a colonoscopy with possible biopsy or polypectomy as indicated. Previous colonoscopy was May 2017 and he had 2 adenomatous polyps in the left colon. He has had an opportunity to ask and have questions answered. He does have COPD. He had the fistula in ano remotely cared for and careful inspection will be pursued. He has had the recently treated recurrent prostate cancer status post radical prostatectomy and now status post radiation treatment. Careful inspection for changes will be noted. He has had an opportunity ask and have questions answered. I appreciate the ongoing option of assisting with his surgical care. Plan Copy: Dr Justin Gonzalez M.D., F.A.C.S. I have examined the patient and the H&P has been reviewed. There are no clinical changes since date of exam. Vladimir Gonzalez M.D., Mica.NellyS.
--- NOTE | 2023-12-17 07:16 | PRE.ANES_ITS ---
ASA Classification* ASA Classification ASA Classification: 2 Assessment & Plan Anesthesia* Anesthesia Assessment Anesthesia Assessment: Discussed sedation and/or anesthesia options, risks, benefits, and alternatives with patient/parents/legal guardian/POA. Questions invited. The patient/parents/legal guardian/POA seems to understand and agrees to proceed with anesthesia plan. Reviewed the physical assessment, medical history, allergy history and patient home medications list prior to surgery/procedure/anesthetic and documented any changes. Performed airway and anesthesia risk assessments. 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 When Was Last Pacemaker Check QUESTION #4 FULL TEXT: You/Your Family Experience fever (hyperthermia) with Anesthesia Last Oral Intake Last Oral intake: Last Oral Intake NPO since 00:00 12/17/23 06:36 Meds taken in AM with sips of No 12/17/23 06:36 water? 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 Female Yes 12/11/23 12:43 HX of Motion Sickness No 12/11/23 12:43 HX of N/V After Surgery No 12/11/23 12:43 Non-Smoker Yes 12/11/23 12:43 Duration of Surgery greater No 12/11/23 12:43 than 60 minutes Number of Risk Factors 2 12/11/23 12:43 PONV Score Moderate Risk 12/11/23 12:43 Height & Weight Height & Weight: Anesthesia: Height & Weight Height 5 ft 8 in 12/17/23 06:36 Weight: 108 kg 12/17/23 06:36 Body Mass Index (BMI) 36.1 12/17/23 06:36 Respiratory Assessment Respiratory Assessment - motorcycle repair shop supervisor: Respiratory Tract Infection Hx - motorcycle repair shop supervisor Hx Respiratory Tract Infection No 12/11/23 12:43 STOP Sleep Apnea STOP Sleep Apnea - motorcycle repair shop supervisor: STOP Sleep Apnea - motorcycle repair shop supervisor Hx Hypertension Yes 12/11/23 12:43 Hx Sleep Apnea Yes 12/11/23 12:43 CPAP Yes 12/11/23 12:43 BIPAP No 12/11/23 12:43 Do you snore loudly (louder than talking or can be heard Do you often feel tired/ fatigued/ sleepy during daytime? Has anyone observed you stop breathing during sleep? STOP Results Positive 12/11/23 12:43 QUESTION #5 FULL TEXT : Do you snore loudly (louder than talking or can be heard through closed doors)? 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 Specify any problems Hx of Preganancy in last 3 N/A 12/11/23 12:43 Months Nurse Filling Out Transfusion NBUCHER 12/11/23 12:43 & Questions: Date: 12/11/23 12/11/23 12:43 Time: 12:44 12/11/23 12:43 Patient unable to answer at this time (ie. confused, unrespo /Reproduction History /Reproductive History - motorcycle repair shop supervisor: /Reproductive Hx- motorcycle repair shop supervisor Hx Now No 12/11/23 12:43 Gestational Age (in weeks): EDC: Hx Hx Para Hx Section SAB No 12/11/23 12:43 Active Medications Active Medications: Current Medications Generic Name Dose Route Start Last Admin Trade Name Freq PRN Reason Stop Dose Admin Lactated Ringer's 1,000 mls @ 15 mls/hr 12/17/23 06:30 12/17/23 06:42 IV 15 mls/hr .Q48H BENEDICT Administration Anesthesia Focused Assessment* Temperature: 97.0 F Pulse Rate: 72 Blood Pressure: 129/79 Respiratory Rate: 20 Pulse Ox: 96 Airway Assessment Mouth opens: >3 cm Mallampati Score: II Focused Labs Anesthesia Preop lab: CBC WBC 3.7 K/mm3 (4.4-11.0) L 08/27/23 13:40 RBC 3.74 M/mm3 (4.6-6.2) L 08/27/23 13:40 Hgb 11.6 g/dL (13.0-16.5) L 08/27/23 13:40 Hct 34.6 % (40-54) L 08/27/23 13:40 Plt Count 204 K/mm3 (150-450) 08/27/23 13:40 CHEMISTRY Potassium 3.7 mmol/L (3.5-5.1) 08/27/23 13:40 Sodium 136 mmol/L (136-145) 08/27/23 13:40 BUN 17 mg/dL (7-18) 08/27/23 13:40 Creatinine 0.96 mg/dL (0.70-1.30) 08/27/23 13:40 Glucose 114 mg/dL (74-106) H 08/27/23 13:40 TSH 2.16 uIU/mL (0.358-3.74) 08/27/23 13:40 COAG PT 13.1 SECONDS (11.7-14.9) 04/10/22 14:22 Review of Systems (Anesthesia) ROS Narrative System reviewed and no additional complaints, except as documented. COUNT INCLUDES THE [facility] Medical History Shortness of breath on exertion Chronic cough Non-smoker Personal history of colonic polyps Encounter for education Anemia Wears glasses Cancer Anxiety Depression Alcohol use History of steroid therapy Gout History of renal disease Low iron High cholesterol Restless legs Former smoker BiPAP (biphasic positive airway pressure) dependence Sleep apnea COPD (chronic obstructive pulmonary disease) History of edema History of echocardiogram History of stress test Acute frontal sinusitis, unspecified Fracture Chronic neck and back pain Asthma Fatigue Arthritis HTN (hypertension) s/p fistulotomy GERD (gastroesophageal reflux disease) Diverticulosis [id number]-[id number] HTN (hypertension) Home Medications ?Medication ?Instructions ?Recorded ?Last Taken ?Type allopurinol 300 mg tablet 300 mg PO QHS 05/16/17 10/01/23 21:00 History ascorbic acid (vitamin C) 500 mg 1,000 mg PO QHS 05/16/17 10/01/23 History tablet citalopram 20 mg tablet 20 mg PO QHS 05/16/17 10/01/23 History folic acid 0.8 mg capsule 0.8 mg PO QHS 05/16/17 10/01/23 History multivitamin 1 tab PO QHS 06/02/21 10/01/23 History zinc citrate 16.7 mg chewable 50 mg PO QHS 06/02/21 10/01/23 History tablet esomeprazole magnesium 40 mg 40 mg PO QHS 06/29/21 10/01/23 History capsule,delayed release ferrous sulfate 325 mg (65 mg 325 mg PO QHS 06/29/21 10/01/23 History iron) tablet azelastine 137 mcg-fluticasone 50 1 spray intranasal BID #23 grams 09/26/21 10/01/23 Rx mcg/spray nasal spray atorvastatin 20 mg tablet 20 mg PO QHS 11/01/21 10/01/23 History montelukast 10 mg tablet 10 mg PO QHS #90 tabs 12/22/21 10/01/23 Rx benralizumab 30 mg/mL subcutaneous 30 mg subcut .[id number] 04/05/22 09/07/23 History syringe (Fasenra) albuterol sulfate 90 mcg/actuation 1 puff inhalation Q6H PRN asthma 04/30/23 10/02/23 08:00 Rx aerosol inhaler #8.5 grams amlodipine 5 mg tablet 5 mg PO QHS 08/21/23 10/01/23 History prednisone 10 mg tablet 10 mg PO QDAY #30 tabs 11/20/23 Unknown Rx fluticasone fur. 200 mcg-umeclid 1 inh inhalation QHS #3 ea 12/12/23 Unknown Rx 62.5 mcg-vilant 25 mcg inhalat.powder (Trelegy Ellipta) Allergy/AdvReac Type Severity Reaction Status Date / Time aspirin Allergy Anaphylaxis Verified 12/11/23 12:41 Cephalosporins Allergy Other Verified 12/11/23 12:41 nitroglycerin Allergy Other Verified 12/11/23 12:41 Family History Other Heart disease Kidney disease Surgical History History of sinus surgery History of prostatectomy Hx of foot surgery History of tonsillectomy and adenoidectomy History of rectal polypectomy S/P colonoscopy Social History Smoking Status: Never smoker second hand exposure: No alcohol intake: current Alcohol type: beer substance use type: former substance user Date of last use: Quit using cocaine 1986, used for about 10 years
[2023-12-17 07:17] VITALS: BP 129/79; PULSE 72; RESP 20; TEMP 36.1; O2SAT 96
--- NOTE | 2023-12-17 07:30 | COLBX_PTH ---
PATIENT: HAWK ZAYAS LOC: EN U#:[id number] AGE/SX: 63/M ROOM: RE12/17/[address]: Dr. Vladimir Gonzalez MD : [id number] BED: DIS: 12/17/2023 SPEC #: [id number] RECD: 12/17/23 08:53 STATUS: CRUZ BHAT #: [id number] REID: 12/17/23 07:[address]: Vladimir Gonzalez DEPT: SURGICAL PATHOLOGY RECD BY: Karen Lee ENTERED: 12/17/23 11:37 SP TYPE: COLON BX OTHR DR: Dr. Justin Arita MD Tissues: A - Transverse colon B - Descending colon C - Descending colon Procedures: Surgery Specimen Level IV HEADER OPERATION: Colonoscopy, polypectomy, biopsy of polyp PRE-OP DIAGNOSIS: Personal history of colonic polyps, fistula- in- ano TISSUE SUBMITTED: A- Proximal transverse polyp, B- Descending polyp biopsy, C- Descending colon polyp MICROSCOPIC DIAGNOSIS A. Proximal transverse polyp, biopsy: Fragments of tubular adenoma. B. Descending colon polyp, biopsy: Fragments of tubular adenoma. C. Descending colon polyp, biopsy: Tubular adenoma. AM/mr 12/18/2023 MICROSCOPIC DESCRIPTION Slides are reviewed. GROSS DESCRIPTION A. Received in fixative is one container labeled with the patient's name and designated Proximal transverse polyp. The specimen consists of multiple irregular fragments of light larson soft tissue that in aggregate measure 1.0 x 0.2 x 0.1 cm. The specimen is totally submitted in one cassette. B. Received in fixative is one container labeled with the patient's name and designated Descending polyp. The specimen consists of two irregular fragments of light larson soft tissue that in aggregate measure 0.6 x 0.6 x 0.1 cm. The specimen is totally submitted in one cassette. C. Received in fixative is one container labeled with the patient's name and designated Descending colon polyp. The specimen consists of polypoid fragments of larson tissue measuring 1.0 x 1.0 x 0.6cm. The specimen is bisected and totally submitted in one cassette. AM/mr 12/17/2023 TC:5 CPT:[id number]
--- NOTE | 2023-12-17 08:18 | PCM.POST.ANE ---
Anesthesia: Postop Eval I Current Vital Signs Temperature: 98.7 F Pulse Rate: 72 Blood Pressure: 122/68 Respiratory Rate: 16 Pulse Ox: 96 Oxygen Delivery Method: Room Air Assessment Airway patent: Yes Spontaneous unlabored respirations: Yes Mental status: Awake and Calm nausea: No Vomiting: No Anesthesia Complication: No Fluid Hydration Crystalloid volume administer (ml): 800 Total IV fluid infused: 800 Progress Note Anesthesia document: Postop Eval 1 completed: Yes
[2023-12-17 08:20] VITALS: BP 106/53; BP 122/66; BP 129/79; PULSE 68; PULSE 71; RESP 16; TEMP 37.1; O2SAT 94; O2SAT 96
--- NOTE | 2023-12-17 08:20 | OP.COLON_ITS ---
Patient Name: Juan Jara Procedure Date: 12/17/2023 7:42 AM Date of : 1960 Age: 63 Procedure: Colonoscopy Indications: High risk colon cancer surveillance: Personal history of colonic polyps Providers: Vladimir Gonzalez MD Referring MD: Justin Arita Medicines: See the Anesthesia note for documentation of the administered medications Patient Profile: Last Colonoscopy: within the past 3 months. Complications: No immediate complications. Procedure: Pre-Anesthesia Assessment: - Prior to the procedure, a History and Physical was performed, and patient medications and allergies were reviewed. The patient's tolerance of previous anesthesia was also reviewed. The risks and benefits of the procedure and the sedation options and risks were discussed with the patient. All questions were answered, and informed consent was obtained. Prior Anticoagulants: The patient has taken no anticoagulant or antiplatelet agents. ASA Grade Assessment: II - A patient with mild systemic disease. After reviewing the risks and benefits, the patient was deemed in satisfactory condition to undergo the procedure. After I obtained informed consent, the scope was passed under direct vision. Throughout the procedure, the patient's blood pressure, pulse, and oxygen saturations were monitored continuously. The adult colonoscope was introduced through the anus and advanced to the cecum, identified by appendiceal orifice and ileocecal valve. The colonoscopy was performed without difficulty. The patient tolerated the procedure well. The quality of the bowel preparation was good. The ileocecal valve and the appendiceal orifice were photographed. Scope In: 7:52:01 AM Scope Withdrawal Time 0 hours 17 minutes 0 seconds Scope Out: 8:12:46 AM Total Procedure Duration Time 0 hours 20 minutes 45 seconds Findings: The digital rectal exam findings include non-thrombosed internal hemorrhoids and internal hemorrhoids that prolapse with straining, but spontaneously regress to the resting position (Grade II). Pertinent negatives include normal prostate (size, shape, and consistency). 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 A 6 mm polyp was found in the proximal transverse colon. The polyp was sessile. The polyp was removed with a cold snare. Resection and retrieval were complete. A 5 mm polyp was found in the proximal descending colon. The polyp was sessile. The polyp was removed with a cold biopsy forceps. Resection and retrieval were complete. A 10 mm polyp was found in the mid descending colon. The polyp was semi-pedunculated. The polyp was removed with a hot snare. Resection and retrieval were complete. Multiple diverticula were found in the sigmoid colon and descending colon. Impression: - Non-thrombosed internal hemorrhoids and internal hemorrhoids that prolapse with straining, but spontaneously regress to the resting position (Grade II) found on digital rectal exam. Posterior anal defect consistent with history of seton suture and treatment of fistula in ano - One 6 mm polyp in the proximal transverse colon, removed with a cold snare. Resected and retrieved. - One 5 mm polyp in the proximal descending colon, removed with a cold biopsy forceps. Resected and retrieved. - One 10 mm polyp in the mid descending colon, removed with a hot snare. Resected and retrieved. - Diverticulosis in the sigmoid colon and in the descending colon. Recommendation: - Discharge patient to home. - Resume previous diet. - Continue present medications. - Repeat colonoscopy in 3 years for surveillance based on pathology results. - Telephone my office for pathology results in 1 week. The patient's had a recent colonoscopy with multiple polypectomy. His bowel prep was inadequate so he return for short-term follow-up today for repeat endoscopic evaluation. Procedure Code(s): --- Professional --- 94151, Colonoscopy, flexible; with removal of tumor(s), polyp(s), or other lesion(s) by snare technique 28918, 59, Colonoscopy, flexible; with biopsy, single or multiple Diagnosis Code(s): --- Professional --- Z86.010, Personal history of colonic polyps K64.1, Second degree hemorrhoids D12.3, Benign neoplasm of transverse colon (hepatic flexure or splenic flexure) D12.4, Benign neoplasm of descending colon K57.30, Diverticulosis of large intestine without perforation or abscess without bleeding CPT copyright 2021 [employer]. All rights reserved. The codes documented in this report are preliminary and upon sales technician home theater review may be revised to meet current compliance requirements. Vladimir Gonzalez MD 12/17/2023 8:19:44 AM This report has been signed electronically. Number of Addenda: 0 Note Initiated On: 12/17/2023 7:42 AM
--- NOTE | 2023-12-17 08:20 | OP.CCLET_ITS ---
12/17/2023 Justin Arita [address] [place] [address] Re : Colonoscopy procedure for Juan Jara Dear Dr. Arita This procedure was performed on Sunday, December 17, 2023. My impressions and recommendations are as follows: Impressions : - Non-thrombosed internal hemorrhoids and internal hemorrhoids that prolapse with straining, but spontaneously regress to the resting position (Grade II) found on digital rectal exam. Posterior anal defect consistent with history of seton suture and treatment of fistula in ano - One 6 mm polyp in the proximal transverse colon, removed with a cold snare. Resected and retrieved. - One 5 mm polyp in the proximal descending colon, removed with a cold biopsy forceps. Resected and retrieved. - One 10 mm polyp in the mid descending colon, removed with a hot snare. Resected and retrieved. - Diverticulosis in the sigmoid colon and in the descending colon. Recommendations : - Discharge patient to home. - Resume previous diet. - Continue present medications. - Repeat colonoscopy in 3 years for surveillance based on pathology results. - Telephone my office for pathology results in 1 week. The patient's had a recent colonoscopy with multiple polypectomy. His bowel prep was inadequate so he return for short-term follow-up today for repeat endoscopic evaluation. My findings are described in the full procedure note, which is enclosed. If I can be of further assistance, please feel free to contact me at Doctor phone number(s): Work: . Sincerely, Vladimir Gonzalez MD 12/17/2023 8:19:44 AM This report has been signed electronically.
[2023-12-17 08:21] VITALS: BP 122/68; PULSE 72; RESP 16; TEMP 37.1; O2SAT 96
[2023-12-17 08:30] VITALS: BP 129/79; BP 140/78; PULSE 69; RESP 16; TEMP 36.2; O2SAT 97
[2023-12-17 08:54] VITALS: BP 129/79
--- NOTE | 2023-12-17 09:11 | PCM.POSTANE2 ---
Anesthesia Postop Eval I Sum Postop Eval Completion status Anesthesia document: Postop Eval 1 completed: Yes Anesthesia Postop Eval I Summary Anesthesia Postop Eval I Summary: Anesthesia Postop Eval I: Assessment Summary Airway patent Yes 12/17/23 08:21 [email or web address] Spontaneous unlabored Yes 12/17/23 08:21 [email or web address] respirations Mental status Awake,Calm 12/17/23 08:21 [email or web address] nausea No 12/17/23 08:21 [email or web address] Vomiting No 12/17/23 08:21 [email or web address] Anesthesia Postop Eval I: Fluid Summary Crystalloid volume administer 800 12/17/23 08:21 [email or web address] (ml) Colloids volume administered ( ml) Blood Product volume administered (ml) Total IV fluid infused 800 12/17/23 08:21 [email or web address] Anesthesia Postop Eval I: Summary Notes Anesthesia Complication No 12/17/23 08:21 [email or web address] Anesthesia Complication Comment: Post-operative progress note Anesthesia: Postop Eval II Evaluation Mental status: Awake Pain Level: 0 nausea: No Vomiting: No Complications Anesthesia Complication: No
== END 2023-12-17 08:47 | disposition home or self-care (01) ==
LOC: EN 06:21 → AC 06:22
PROVIDERS: PCP Family Medicine; Referring Provider Family Medicine; Visit Provider Surgery
PROC: 0DJD8ZZ Inspection of Lower Intestinal Tract, Via Natural or Artificial Opening Endoscopic (ICD-10-PCS; CPT 45378; principal; 2023-12-17 07:25)
DX: Z12.11 Encounter for screening for malignant neoplasm of colon (principal); J44.9 Chronic obstructive pulmonary disease, unspecified; K57.30 Diverticulosis of large intestine without perforation or abscess without bleeding; K60.3 Anal fistula; I10 Essential (primary) hypertension; Z92.3 Personal history of irradiation; D64.9 Anemia, unspecified; Z86.010 Personal history of colon polyps; K63.5 Polyp of colon; E78.00 Pure hypercholesterolemia, unspecified; G47.30 Sleep apnea, unspecified; Z99.81 Dependence on supplemental oxygen; M10.9 Gout, unspecified; K21.9 Gastro-esophageal reflux disease without esophagitis; Z79.899 Other long term (current) drug therapy; F41.9 Anxiety disorder, unspecified; F32.A Depression, unspecified; Z79.51 Long term (current) use of inhaled steroids; Z90.79 Acquired absence of other genital organ(s); Z85.46 Personal history of malignant neoplasm of prostate; K64.1 Second degree hemorrhoids
CPT/HCPCS: 45385; 45380; 88305; J7120; J2405

== ENCOUNTER → 2023-12-19 | Outpatient (CLI) | payer OTHER, SELFPAY | END | disposition home or self-care (01) | LOC: PSN 09:28 | PROVIDERS: PCP Family Medicine; Referring Provider Nurse Practitioner Acute Care; Visit Provider Nurse Practitioner Acute Care | DX: J44.9 Chronic obstructive pulmonary disease, unspecified (principal) | CPT/HCPCS: 94060; 94726; 94729 ==

== ENCOUNTER → 2023-12-20 | Outpatient (CLI) | payer OTHER, SELFPAY ==
[2023-12-20 12:41] VITALS: PULSE 101; PULSE 106; PULSE 110; PULSE 77; PULSE 82; PULSE 91; PULSE 95; PULSE 99; O2SAT 94; O2SAT 95; O2SAT 96; O2SAT 97
--- NOTE | 2023-12-21 09:54 | PCM.PSN.6M ---
PSN 6 Minute Walk Test 6 Minute Walk Test 6 Minute Walk Test: 6 Minute Walk Test PSN:6-Minute Walk Test Start: 12/20/23 12:41 Freq: Status: Active Protocol: [id number].6MINW Document 12/20/23 12:41 SAMUEL (Rec: 12/20/23 12:43 SAMUEL [id number]) 6 Minute Walk Test Date Performed 12/20/23 Time Performed 12:30 Height 5 ft 8 in Weight: 240 lb Weight in Pounds 240.[address]: Sharon Mcgregor [employer]PER[employer] Assistive device used: None Pre-test Oxygen Delivery Method Room Air Pulse Ox (%) 96 Pulse Rate (60-100 beats/min) 82 Dyspnea Nando Scale (0-10) 0.5 Exertion Nando Scale (6-20) 6 1st minute Oxygen Delivery Method Room Air Pulse Ox (%) 97 Pulse Rate (60-100 beats/min) 91 2nd minute Oxygen Delivery Method Room Air Pulse Ox (%) 95 Pulse Rate (60-100 beats/min) 95 3rd minute Oxygen Delivery Method Room Air Pulse Ox (%) 96 Pulse Rate (60-100 beats/min) 110 H 4th minute Oxygen Delivery Method Room Air Pulse Ox (%) 95 Pulse Rate (60-100 beats/min) 106 H 5th minute Oxygen Delivery Method Room Air Pulse Ox (%) 94 Pulse Rate (60-100 beats/min) 101 H 6th minute Oxygen Delivery Method Room Air Pulse Ox (%) 95 Pulse Rate (60-100 beats/min) 99 Dyspnea Nando Scale (0-10) 2 Exertion Nando Scale (6-20) 12 Post-test Oxygen Delivery Method Room Air Pulse Ox (%) 96 Pulse Rate (60-100 beats/min) 77 Full Laps Walked 17 Partial Lap, Number of Tiles Walked 13 Total Distance Walked (ft) 1016 Interpretation Interpretation: The patient ambulated 1016 feet over the course of 6 minutes beginning on room air without assistive devices. Retesting oxygen saturation was noted to be 96% on room air. With ambulation, the dewayne oxygen saturation was 94%. There was no significant exertional oxygen desaturation. Recommendations Recommendations: There is no indication for the use of supplemental oxygen at this time.
== END | disposition home or self-care (01) ==
LOC: PSN 12:23
PROVIDERS: PCP Family Medicine; Referring Provider Nurse Practitioner Acute Care; Visit Provider Nurse Practitioner Acute Care
DX: J44.9 Chronic obstructive pulmonary disease, unspecified (principal)
CPT/HCPCS: 94618

== ENCOUNTER → 2023-12-24 | Outpatient (CLI) | payer OTHER, SELFPAY ==
[2023-12-24 13:05] LABS: Bacteria 0 SEEN /hpf (None Seen); Mucous, Urine 0 SEEN /hpf (<or=2+); Red Blood Cells-Urine 0 SEEN /hpf (0-5); Squamous Epithelial Cells - UA 0 SEEN /hpf (0-5); White Blood Cells 0 SEEN /hpf (0-5)
[2023-12-24 13:25] LABS: Absolute Lymphocyte Count 0.63 X10^3/uL (0.83-4.51); Absolute Neutrophil Count 2.7 X10^3/uL (2.0-7.7); Hematocrit 33.3 % (40-54); Hemoglobin 11.3 g/dL (13.0-16.5); Lymphocyte # 0.63 X10^3/ul (0.83-4.51); Mean Corp Hgb Conc 33.9 g/dL (32-36); Mean Corpuscular Hgb 31.4 pg (27.0-32.0); Mean Corpuscular Volume 92.5 fL (80-94); Mean Platelet Vol. 9.2 fl (6.2-12.0); Monocyte# 0.36 X10^3/uL; Monocyte% 9.7 % (0-10); NRBC Flagged by Analyzer 0 % (0-5); Neutrophil # 2.69 X10^3/uL (2.7-7.7); Neutrophil % 72.8 % (47-70); Platelet Count 257 K/mm3 (150-450); RBC Distribution Width CV 12.8 % (11.6-14.6); RBC Distribution Width SD 43.4 fl (35.1-43.9); White Blood Count 3.7 K/mm3 (4.4-11.0)
[2023-12-24 13:26] LABS: Color, Urine Yellow (Yellow); Glucose, Dipstick Normal (Normal); Ketone-Dipstick Negative (Negative); Leukocyte Esterase-Dipstick Negative /ul (Negative); Nitrite-Dipstick Negative (Negative); Occult Blood-Urine 10 /ul (Negative); Protein-Dipstick 15 mg/dl (Negative); Specific Gravity, Urine 1.015 (1.002-1.030); Urine Bilirubin Dipstick Negative (Negative); Urine Clarity Clear (Clear); Urine Urobilinogen Normal (Normal)
[2023-12-24 14:04] LABS: Vitamin B12 412 pg/mL (211-911); Vitamin D,25 Hydroxy 31.4 ng/mL
[2023-12-24 14:40] LABS: AST(SGOT) 18 U/L (15-37); Alanine Aminotransfer ALT/SGPT 42 U/L (16-61); Albumin, Serum 3.4 g/dL (3.2-5.0); Alkaline Phosphatase 80 U/L (45-117); Anion Gap 4 (5-15); BUN 14 mg/dL (7-18); BUN/Creat Ratio 13.1 RATIO (10-20); Chloride 103 mmol/L (98-107); Cholesterol 216 mg/dL (200); Creatinine, Serum 1.07 mg/dL (0.70-1.30); EST Glomerular Filtration Rate 74 mL/min (>60); Est Glom Filt Rate - Afr Amer 90 mL/min (>60); Ferritin 307 ng/mL (26-388); Globulin 3.4 g/dL (2.2-4.2); Glucose 113 mg/dL (74-106); High Density Lipoprotein 46 mg/dL; Iron 75 ug/dL (65-175); Iron Binding Capacity,Total 299 ug/dL (250-450); Magnesium 1.7 mg/dL (1.6-2.6); Potassium 3.8 mmol/L (3.5-5.1); Protein, Total 6.8 g/dL (6.4-8.2); Sodium Level 138 mmol/L (136-145); Triglycerides 449 mg/dL
== END | disposition home or self-care (01) ==
LOC: LAB 12:55
PROVIDERS: PCP Family Medicine; Referring Provider Family Medicine; Visit Provider Family Medicine
DX: I10 Essential (primary) hypertension (principal); E55.9 Vitamin D deficiency, unspecified; D64.9 Anemia, unspecified
CPT/HCPCS: 36415; 80053; 80061; 81001; 82306; 82607; 82728; 82746; 83540; 83550; 83735; 85025

== ENCOUNTER → 2023-12-26 | Outpatient (CLI) | payer OTHER, SELFPAY ==
--- NOTE | 2023-12-26 08:09 | PR.HP_ITS ---
History of Present Illness General Arrival date:: 12/26/23 Arrival time:: 08:00 Date of Referral:: 12/25/23 Date of Evaluation: 12/26/23 Referring Physician: Dr. Holland Sanabria Primary Diagnosis: COPD II: Moderate History of Present Pulmonary Event History of Present Illness: 63 yr old male patient of Dr. Holland Sanabria who presents to pulmonary rehab today. Patient is here due to his Asthma/COPD disease classified Moderate Stage II GOLD. He has a previous history of prostate cancer w/removal of prostate and has been on shelter prednisone and hormone therapy which has contributed to his over 20 pound weight gain over the past year. mMRC Breathless Scale: When is the patient short of breath? Y/N Grade: Description of Breathlessness: N 0 I only get breathless with strenuous exercise. Y 1 I get short of breath when hurrying on level ground or walking up a slight hill. Y 2 On level ground, I walk slower than people of the same age because of breathless, or have to stop for breath when walking at my own pace. Y 3 I stop for breath after walking 100 yards or after a few minutes on level ground. N 4 I am too breathless to leave the house or I am breathless when dressing. Respiratory Problems: Yes Retain Secretions, Able to Speak in Full Sentences, Anxiety, Panic, Dyspnea with Activity, Dyspnea Lying Down Flat and Cough with Secretions; No Limited Range of Motion, Chest Pain, Ankle Swelling, Hoarseness or Dyspnea at Rest Medications Home Medications allopurinol 300 mg tablet 300 mg PO QHS 05/16/17 ascorbic acid (vitamin C) 500 mg tablet 1,000 mg PO QHS 05/16/17 citalopram 20 mg tablet 20 mg PO QHS 05/16/17 folic acid 0.8 mg capsule 0.8 mg PO QHS 05/16/17 multivitamin 1 tab PO QHS 06/02/21 zinc citrate 16.7 mg chewable tablet 50 mg PO QHS 06/02/21 esomeprazole magnesium 40 mg capsule,delayed release 40 mg PO QHS 06/29/21 ferrous sulfate 325 mg (65 mg iron) tablet 325 mg PO QHS 06/29/21 azelastine 137 mcg-fluticasone 50 mcg/spray nasal spray 1 spray intranasal BID #23 grams 09/26/21 atorvastatin 20 mg tablet 20 mg PO QHS 11/01/21 montelukast 10 mg tablet 10 mg PO QHS #90 tabs 12/22/21 benralizumab 30 mg/mL subcutaneous syringe (Fasenra) 30 mg subcut .[id number] 04/05/22 albuterol sulfate 90 mcg/actuation aerosol inhaler 1 puff inhalation Q6H PRN asthma #8.5 grams 04/30/23 amlodipine 5 mg tablet 5 mg PO QHS 08/21/23 prednisone 10 mg tablet 10 mg PO QDAY #30 tabs 11/20/23 fluticasone fur. 200 mcg-umeclid 62.5 mcg-vilant 25 mcg inhalat.powder (Trelegy Ellipta) 1 inh inhalation QHS #3 ea 12/12/23 Allergies Allergies aspirin Allergy (Verified 12/11/23 12:41) Anaphylaxis Cephalosporins Allergy (Verified 12/11/23 12:41) Other nitroglycerin Allergy (Verified 12/11/23 12:41) Other Secretions Normal Color:: Usually white, occas. dk green Thick:: Yes Amount/Day:: 2 TSP Cough:: Yes AM: Yes A.T.C.: Yes Sleep Disorder Evaluation Hx of Sleep Apnea: Yes Do you snore loudly (louder than talking or can be heard through closed doors)?: Yes Do you often feel tired/ fatigued/ sleepy during daytime?: Yes Has anyone observed you stop breathing during sleep?: Yes History of Hypertension (for STOP score): Yes STOP Results: Positive: on home BiPAP Medical Utilization Medical Devices Do you use a peak flow meter at home?: No Do you use a spacer device with your inhalers?: No Medical Utilization Number of hospital visits in the last year?: 0 Number of emergency room visits in the last year?: 0 Do you see your physician on a regular schedule?: Yes How often?: PCP; 4 mo. PULM; 4-6 mo. Advanced Directives Advanced Directives Power of Respite Care Provider: No Living Will: No Advance Directives Information Provided: Yes Advance Directives on File: No DNR Order?:: No MOLST See MOLST form: No Past Medical History Covid-19 Screening Physicial Symptoms Fever: No Unexplained muscle aches: No Current respiratory symptoms: No Upper respiratory infections symptoms: Yes (due to his overlapping Asthma/COPD disease) Gastro-intestinal symptoms: Yes (GERD, Diverticulitis) Idm-Gmgi-Kladee symptoms: No Other Clinical Concerns Has tested positive for COVID-19 in last 30 days: No Exposure Risk Had contact w/person w/symptoms or Covid-19 (+) last 14 days: No Has High Risk Exposures ID'd by Health dept/Inf Control team: No Pertinent Comorbidities 65 years or older:: No Lives in Assisted Living facility:: No Has a chronic lung disease or moderate to severe asthma:: Yes Has a serious heart condition:: No Immunocompromised:: No Severely obese (Body Mass Index of 40 or higher):: No Diabetic:: No Has chronic kidney disease undergoing dialysis:: Yes Has liver disease:: No Medical History Medical History Shortness of breath on exertion Chronic cough Non-smoker Personal history of colonic polyps Encounter for education Anemia Wears glasses Cancer Anxiety Depression Alcohol use History of steroid therapy Gout History of renal disease Low iron High cholesterol Restless legs Former smoker BiPAP (biphasic positive airway pressure) dependence Sleep apnea COPD (chronic obstructive pulmonary disease) History of edema History of echocardiogram History of stress test Acute frontal sinusitis, unspecified Fracture Chronic neck and back pain Asthma Fatigue Arthritis HTN (hypertension) s/p fistulotomy GERD (gastroesophageal reflux disease) Diverticulosis [id number] HTN (hypertension) Surgical History Surgical History History of sinus surgery History of prostatectomy Hx of foot surgery History of tonsillectomy and adenoidectomy History of rectal polypectomy S/P colonoscopy Significant Family History Family History Other Heart disease Kidney disease Current/ Previous Services Pulmonary Rehab:: No Social History Smoking History Smoking Status: Never smoker Alcohol Use Alcohol Usage: No Substance Abuse Hx Substance Use: No Occupation Occupation (List type of work in comments):: Retired Hobbies, Recreation, Social Activities Hobbies: Sports (Basketball, Martial Arts, sports in general) and Other (working on cars) Recreational Activities: I can hardly do any recreational activities Functioning ADL/IADL Current Ability Current Ability: Independent: Self-Care (e.g.,grooming, dressing, & bathing), Independent: Ambulation, Independent: Transfer and Independent: Household tasks (e.g., light meal prep, laundry, shopping) Pt Functioning Prior to Problem Prior Functioning: Self-Care (e.g.,grooming, dressing, & bathing): Independent, Ambulation: Independent, Transfer: Independent and Household tasks (e.g., light meal prep, laundry, shopping): Independent Social Environment Status Marital Status: Current Living Arrangements Living Environment:: Spouse Children How many children do you have?: 6 (Mixed family also have 15 grandchildren) Do any of your children live nearby?: Yes Safety Do you feel safe in your surroundings?: Yes Assistance Do you need any assistance at home?: No Review of Systems Review of Systems Review of Systems Respiratory: Reports Cough, SOB upon Exertion, Sputum production, Wheezing (occasionally), Appetite, Normal, Dizziness/Lightheadedness (occasional lightheadedness when get short of breath) and Fatigue (100% tiredness and fatigued); Denies Hemoptysis, Pleuritic Pain, SOB at Rest, PVD or Sexual changes Pain Is Patient Pain Free?: Yes Pain Location: neck (previous neck chronic pain) and upper extremity (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, 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) Pain Level: 09/08 Risk Factor Assessment Vital Signs Temperature: 98.4 F Pulse Rate: 78 Pulse Rhythm: Regular Respiratory Rate: 18 Pulse Ox: 95 Blood Pressure: 174/93 Diabetes Nutrition Referral for Diabetes: No Obesity Height: 5 ft 8 in Weight:: 237 lb Weight in Pounds: 237.0 lbs Weight Source: Estimated by Patient Body Mass Index (BMI): 36.0 Nutritional Referral for Obesity: Yes Physical Activity Physical Inactivity: Recreational activity Risk Stratification Risk Guidelines: Lowest Risk: Risk Factor for Smoking, Risk Factor for Dyslipidemia, Risk Factor for Diabetes, Risk Factor for Sedentary Lifestyle and Risk Factor for Depression and Highest Risk: Risk Factor for Obesity (BMI > 35) and Risk Factor for Hypertension (Resting BP 174/93) For Smoking Smoking Risk Guidelines For Dyslipidemia Dyslipidemia Risk Guidelines For Diabetes Mellitus Diabetes Risk Guidelines For Obesity/Overweight Obesity/Overweight Risk Guidelines For Hypertension Hypertension Risk Guidelines For Sedentary Lifestyle Sedentary Lifestyle Risk Guidelines For Depression Depression Risk Guidelines Motivation Motivation to Participate On a scale of 1 to 10, how prepared are you to commit to attending program?: 10 What do you see as barriers to successfully being able to complete the program?: None What do you see as the benefits of succesfully completing the program? In other words, what do you hope to get out of participating in the program?: Quality of Life, healthier Are there issues you are dealing with that will interfere with completing the program?: Occasioanl neck pain prevents him from driving inability to turn his head. Do you have a spouse or signficant other, family or friends who will help support you to complete the program?: Yes Diagnostic Data Review Pulmonary Function Test FEV1:: 47 FVC:: 67 FEV1/FVC%:: 71 Gold Classification: GOLD class II(mod. COPD)with FEV1/FVC <70%, 50%</= FEV1< 50% predicted
--- NOTE | 2023-12-26 08:09 | PCM.PR.TP ---
General Information2 General Information Admitting Diagnosis: COPD II: Moderate Secondary Diagnosis: Asthma Overlap disease, FREDERICK, Obesity, Prostatectomy (cancer) Gold Classification:: GOLD 2: Moderate PFT FEV1:: 47 FVC:: 67 FEV1/FVC%:: 71 Personal Learning Style/Barriers Personal Learning Style:: Audio/Visual and Written Barriers to Learning: Vision impaired Stage of change r/t lifestyle modifications: Prepared Educational Classes MO: Breathing Retraining: Initial Assessment, Exercise: Initial Assessment, Emotion Social Well Being: Initial Assessment (Anxiety, closterphobia), Sleep problems: Initial Assessment (FREDERICK on BiPAP) and Airway clearance: Initial Assessment Education/Goals Individual Counseling: Initial Assessment: High Blood Pressure, Overweight/Obesity and Waist Circumference: <35 females <40 males MO Patient Goals: Increase muscle strength: Initial Assessment, Experience less dyspnea: Initial Assessment, Improve energy level: Initial Assessment, Participate in home exercise: Initial Assessment, Improve the ability to cope with ADLs: Initial Assessment, Improve knowledge of lung disease: Initial Assessment, Control panic/anxiety: Initial Assessment, Improve diet and nutrition: Initial Assessment and Improve my quality of life: Initial Assessment Exercise - Initial Assessment Visit Date of Eval: 12/26/23 Session Number:: 0 (Pre-program evaluation) Problem/Goals Problems: Deconditioning, Knowledge deficit exercise guidelines and Knowledge deficit exercise safety Goals:: MO: 2-3/wk for 18 weeks [36 sessions] Physician Prescribed Exercise Modalities: Treadmill, Schwinn Airdyne AD-7 and SciFit Stepper Frequency (days/week): 3 Duration (Minutes):: 30-45 Intensity: 60-80% of age predicted maximum heart rate reserve Current METSs:: 3.0 Target HR:: 133 (THRR 102-133) Resting Blood Pressure: 174/93 Minimum SpO2 with exercise: 95 EKG Type: Normal Sinus Rhythm Plan Plan and Plan to Review:: Benefits of exercise, Core components of exercise, How to measure dyspnea level, How to monitor dyspnea level, Exercise intensity, Exercise safety guideline, Home exercise guidelines and Nando: 3-4/11-13 Nutrition/Wt Mgmt - Initial Visit Date of Eval: 12/26/23 Session Number:: 0 (Pre-program evaluation) Problems/Goals Problems: Overweight Goals: Wt Loss 1-2 lbs per week Weight Management Knowledge Deficit Management of:: Overweight and Weight control w/Prednisone (Patient also takes hormone therapy due to prostatectomy which has caused his weight gain over the last year.) Admit Height:: 5 ft 8 in Admit Weight:: 240 lb Admit BMI:: 36.5 Intervention Referral to dietitian:: Yes Will attend diet classes:: Yes Intervention/Plan: Instruct on ideal BMI & set weight loss goal w/patient, Assist pt to ID & incorporate diet changes for weight loss by S9, Refer to Structured Weight Loss program as appropriate and Encourage goal of using 250-300dcal per session for weight loss Plan Nutrition Plan: Yes: Review BMI or WC & identify target wt & strategies for wt control, Yes: Nutrition education class: (Refer to Nutritional Services), Yes: Medication education class [Prednisone]: (Nutritional Services) and Yes: Weight control education class: (Refferal to Why Weight Program.) Nutrition/Wt Mgmt - 30-Day Visit Session Number:: 0 (Pre-program evaluation) Weight Management Height: 5 ft 8 in Weight:: 240 lb BMI: 36.5 Nutrition/Wt Mgmt - 60-Day Visit Session Number:: 0 (Pre-program evaluation) Weight Management Height: 5 ft 8 in Weight:: 240 lb BMI: 36.5 Nutrition/Wt Mgmt - 90-Day Visit Session Number:: 0 (Pre-program evaluation) Weight Management Height: 5 ft 8 in Weight:: 240 lb BMI: 36.5 Nutrition/Wt Mgmt - Final Visit Session Number:: 0 (Pre-program evaluation) Weight Management Height: 5 ft 8 in Weight:: 240 lb BMI: 36.5 Psychosocial - Initial Assess Visit Date of Eval: 12/26/23 Session Number:: 0 (Pre-program evaluation) Problems/Goals History of Emotional Disorders: Anxious and Depression Psychosocial Goals: 1. Patient is free from overwhelming symtoms of depression (or anxiety, 2. Identifies personal stressors & states the strategies for managing, 3. Identifies activities to decrease isolation and/or symptoms of, 4. Improved psychosocial coping skills., 5. Verbalizes coping strategies. and 7. Improved Q.O.L. Psychosocial Test Tool Used:: Pulmonary QOL and PHQ-9 Questionnaire Referral to Behavioral Health PS - Interventions: Yes: Attend Stress Management Classes and No: Referral to Behavioral Health if PHQ-9 score >9:, No: Referral to [facility] and No: Referral to Physician if PHQ-9 if score is 5-9: Intervention/Plan: See List Interventions/Plan:: Assess stressors,coping strategies & signs of derpression on admission, Instruct/assist pt to develop coping & personal stress Mgt strategies, Instruct patient to recognize signs & symptoms of depression and Instruct patient to recog Psychosocial - 30-Day Visit Session Number:: 0 (Pre-program evaluation) Problems/Goals History of Emotional Disorders: Anxious and Depression Psychosocial Goals: 1. Patient is free from overwhelming symtoms of depression (or anxiety, 2. Identifies personal stressors & states the strategies for managing, 3. Identifies activities to decrease isolation and/or symptoms of, 4. Improved psychosocial coping skills., 5. Verbalizes coping strategies. and 7. Improved Q.O.L. Psychosocial Test Tool Used:: Pulmonary QOL and PHQ-9 Questionnaire Referral to Behavioral Health PS - Interventions: Yes: Attend Stress Management Classes and No: Referral to Behavioral Health if PHQ-9 score >9:, No: Referral to [facility] and No: Referral to Physician if PHQ-9 if score is 5-9: Plan Interventions/Plan:: Assess stressors,coping strategies & signs of derpression on admission, Instruct/assist pt to develop coping & personal stress Mgt strategies, Instruct patient to recognize signs & symptoms of depression and Instruct patient to recog Psychosocial - 60-Day Visit Session Number:: 0 (Pre-program evaluation) Problems/Goals History of Emotional Disorders: Anxious and Depression Psychosocial Goals: 1. Patient is free from overwhelming symtoms of depression (or anxiety, 2. Identifies personal stressors & states the strategies for managing, 3. Identifies activities to decrease isolation and/or symptoms of, 4. Improved psychosocial coping skills., 5. Verbalizes coping strategies. and 7. Improved Q.O.L. Psychosocial Test Tool Used:: Pulmonary QOL and PHQ-9 Questionnaire Referral to Behavioral Health PS - Interventions: Yes: Attend Stress Management Classes and No: Referral to Behavioral Health if PHQ-9 score >9:, No: Referral to [facility] and No: Referral to Physician if PHQ-9 if score is 5-9: Plan Interventions/Plan:: Assess stressors,coping strategies & signs of derpression on admission, Instruct/assist pt to develop coping & personal stress Mgt strategies, Instruct patient to recognize signs & symptoms of depression and Instruct patient to recog Psychosocial - 90-Day Visit Session Number:: 0 (Pre-program evaluation) Problems/Goals History of Emotional Disorders: Anxious and Depression Psychosocial Goals: 1. Patient is free from overwhelming symtoms of depression (or anxiety, 2. Identifies personal stressors & states the strategies for managing, 3. Identifies activities to decrease isolation and/or symptoms of, 4. Improved psychosocial coping skills., 5. Verbalizes coping strategies. and 7. Improved Q.O.L. Psychosocial Test Tool Used:: Pulmonary QOL and PHQ-9 Questionnaire Referral to [facility] PS - Interventions: Yes: Attend Stress Management Classes and No: Referral to Behavioral Health if PHQ-9 score >9:, No: Referral to [facility] and No: Referral to Physician if PHQ-9 if score is 5-9: Plan Interventions/Plan:: Assess stressors,coping strategies & signs of derpression on admission, Instruct/assist pt to develop coping & personal stress Mgt strategies, Instruct patient to recognize signs & symptoms of depression and Instruct patient to recog Psychosocial - Final Assess Visit Session Number:: 0 (Pre-program evaluation) Problems/Goals History of Emotional Disorders: Anxious and Depression Psychosocial Goals: 1. Patient is free from overwhelming symtoms of depression (or anxiety, 2. Identifies personal stressors & states the strategies for managing, 3. Identifies activities to decrease isolation and/or symptoms of, 4. Improved psychosocial coping skills., 5. Verbalizes coping strategies. and 7. Improved Q.O.L. Psychosocial Test Tool Used:: Pulmonary QOL and PHQ-9 Questionnaire Referral to [facility] PS - Interventions: Yes: Attend Stress Management Classes and No: Referral to Behavioral Health if PHQ-9 score >9:, No: Referral to [facility] and No: Referral to Physician if PHQ-9 if score is 5-9: Plan Interventions/Plan:: Assess stressors,coping strategies & signs of derpression on admission, Instruct/assist pt to develop coping & personal stress Mgt strategies, Instruct patient to recognize signs & symptoms of depression and Instruct patient to recog Oxygen & Oxygen Titration Init Visit Date of Eval: 12/26/23 Session Number:: 0 (Pre-program evaluation) Initial Assessment Oxygen on Admission: None SpO2:: 95 Plans Plan: Monitor SpO2 rest & with exercise Reviewed prescribed medications:: Purpose, Schedule, Side effects and Importance of compliance Instruct correct technique/timing & care:: MDI, DPI and Return demo use of inhaler Bronchial Hygiene Plan: Controlled cough, Vibratory PEP device, Role of exercise in secretion clearance, Hydration, Hand hygiene and Evaluate sputum Oxygen & Oxygen Titration 30D Visit Session Number:: 0 (Pre-program evaluation) Reassessment SpO2:: 95 Oxygen & Oxygen Titration 60D Visit Session Number:: 0 (Pre-program evaluation) Reassessment SpO2:: 95 Oxygen & Oxygen Titration 90D Visit Session Number:: 0 (Pre-program evaluation) Reassessment SpO2:: 95 Oxygen & Oxygen Titration DANISH Visit Session Number:: 0 (Pre-program evaluation) Reassessment SpO2:: 95 Core Components - Initial Visit Date of Eval: 12/26/23 Session Number:: 0 (Pre-program evaluation) Hypertension Hypertension Diagnosis:: Hypertension ICD-10 I10 BP: 174/93 [place] [employer] Hypertension Guidelines Low Sodium diet: No Outcomes/Goals: Able to verbalize/achieve optimal blood pressure <130/80 and Incorporates diet changes & exercise for blood pressure control by DC Tobacco - Initial Assessment Tobacco Program Goals Tobacco Use: Non-smoker Individual Education/Counseling:: Yes (Consult w/ Nutritional Services & Why Weight structured weight loss program) Education Schedule Given:: Yes Gave Education Materials For:: Pulmonary Disease, Risk Factors, Breathing Techniques, Medical Compliance, Pulmonary A&P, Exacerbation Signs & Symptoms and Stress & Relaxation Exacerbation Mgmt & Airway Clearance Problems:: No home O2 Bronchial Hygiene Problems:: Ineffective secretion clearance and Respiratory infection Prevention/Management Goals: Pt demonstrates effective cough, effective secretion clearance. and Pt describes signs and symptoms of infection. Plan: Monitor SpO2 rest & with cloth designer correct technique/timing & care:: MDI, DPI and Return demo use of inhaler Bronchial Hygiene Plan: Controlled cough, Vibratory PEP device, Role of exercise in secretion clearance, Hydration, Hand hygiene and Evaluate sputum Medication Interventions/plans: Instruct on medication effects & side effects and Instruct importance of taking meds as ordered & assist problem solving Medication Goals: Correct technique/timing & care of MDI, DPI, nebulizer, and spacer. Does pt report taking home meds as prescribed?: Yes Medications: Yes: MDI and Yes: DPI and No: Spacer Reviewed prescribed medications:: Purpose, Schedule, Side effects and Importance of compliance Diabetes Diabetes:: No Referral to dietitian:: Yes Will attend diet classes:: Yes Heart Failure Documenting weight daily for CHF: No Core Components - 30 DAYS Visit Session Number:: 0 (Pre-program evaluation) Hypertension Hypertension Diagnosis:: Hypertension ICD-10 I10 Resting Blood Pressure:: 174/93 [place] [employer] Hypertension Guidelines Outcomes/Goals: Able to verbalize/achieve optimal blood pressure <130/80 and Incorporates diet changes & exercise for blood pressure control by [place] Tobacco - 30-Day Tobacco Program Goals Tobacco Use: Non-smoker Education Schedule Given:: Yes Gave Education Materials For:: Pulmonary Disease, Risk Factors, Breathing Techniques, Medical Compliance, Pulmonary A&P, Exacerbation Signs & Symptoms and Stress & Relaxation Diabetes Diabetes:: No Heart Failure Documenting weight richar: No Core Components - 60 DAYS Visit Session Number:: 0 (Pre-program evaluation) Hypertension Hypertension Diagnosis:: Hypertension ICD-10 I10 Resting Blood Pressure:: 174/93 [place] [employer] Hypertension Guidelines Outcomes/Goals: Able to verbalize/achieve optimal blood pressure <130/80 and Incorporates diet changes & exercise for blood pressure control by [place] Tobacco - 60-Day Tobacco Program Goals Tobacco Use: Non-smoker Individual Education/Counseling:: Yes (Consult w/ Nutritional Services & Why Weight structured weight loss program) Education Schedule Given:: Yes Gave Education Materials For:: Pulmonary Disease, Risk Factors, Breathing Techniques, Medical Compliance, Pulmonary A&P, Exacerbation Signs & Symptoms and Stress & Relaxation Diabetes Diabetes:: No Heart Failure Documenting weight richar: No Core Components - 90 DAYS Visit Session Number:: 0 (Pre-program evaluation) Hypertension Hypertension Diagnosis:: Hypertension ICD-10 I10 Resting Blood Pressure:: 174/93 [place] [employer] Hypertension Guidelines Outcomes/Goals: Able to verbalize/achieve optimal blood pressure <130/80 and Incorporates diet changes & exercise for blood pressure control by [place] Tobacco - 90-Day Tobacco Program Goals Tobacco Use: Non-smoker Individual Education/Counseling:: Yes (Consult w/ Nutritional Services & Why Weight structured weight loss program) Education Schedule Given:: Yes Gave Education Materials For:: Pulmonary Disease, Risk Factors, Breathing Techniques, Medical Compliance, Pulmonary A&P, Exacerbation Signs & Symptoms and Stress & Relaxation Diabetes Diabetes:: No Core Components - Final Visit Session Number:: 0 (Pre-program evaluation) Hypertension Hypertension Diagnosis:: Hypertension ICD-10 I10 Resting Blood Pressure:: 174/93 [place] [employer] Hypertension Guidelines Outcomes/Goals: Able to verbalize/achieve optimal blood pressure <130/80 and Incorporates diet changes & exercise for blood pressure control by [place] Tobacco - Final Tobacco Program Goals Tobacco Use: Non-smoker Individual Education/Counseling:: Yes (Consult w/ Nutritional Services & Why Weight structured weight loss program) Education Schedule Given:: Yes Diabetes Diabetes:: No Patient Health Questionnaire PHQ-9 Screening Initial Assessment: 1. Little interest or pleasure in doing things: Nearly every day 2. Feeling down, depressed, or hopeless: Nearly every day 3. Trouble falling or staying asleep, or sleeping too much: Nearly every day 4. Feeling tired or having little energy: Nearly every day 5. Poor appetite or overeating: More than half the days 6. Feeling bad about yourself -- or that you are a failure or have let yourself or your family down: Nearly every day 7. Trouble concentrating on things, such as reading the newspaper or watching television: Nearly every day 8. Moving or speaking so slowly that other people could have noticed. Or the opposite - being so fidgety or restless that you have been moving around a lot more than usual: Not at all 9. Thoughts that you would be better off , or of hurting yourself in some way: Not at all How difficult have these problems made it for you to do your work, take care of things at home, or get along with other people?: Extremely difficult Total Score: 20 Knowledge Questionaire (BCKQ) Information Information: [place] COPD Knowledge Questionnaire (BCKQ) This questionnaire is designed to find out what you know about your lung problem. It should be completed without help form anyone else. This usually takes between 10 and 20 minutes. Your answers will help us to find out what information you need to help you to understand and manage your lung condition. [place] which you think is the correct answer. Questions 1. In COPD: b. COPD can only be confirmed by breathing tests: True c. In COPD ther is usually gradual worsening over time: True d. In COPD oxygen levels in the blood are always low: Don't know e. COPD is usually in people less than 40 years old: False 2. COPD: [place] than 80% of COPD cases are caused by cigarette smoking: True b. COPD can be caused by occupational dust exposure: True c. Longstanding asthma can develop into COPD: True d. COPD is commonly an inherited disease: False e. Women are less vunerable to the effects of cigarette than men: False 3. The following symptoms are Common in COPD: a. Swelling of the ankles is common in COPD:: False b. Fatigue [tiredness] is common in COPD: True c. Wheezing is common in COPD: True d. Crushing chest pain is common in COPD: False e. Rapid weight loss is common in COPD: False 4. Breathlessness in COPD: a. Severe breathlessness prevents travel by air: True b. Breathlessness can be worsened by eating large meals: True c. Breathlessness means that your oxygen levels are low: False d. Breathlessness is a normal response to exercise: True e. Breathlessness is primarily caused by a narrowing of the bronchial tubes: True 5. Phlegm (sputum): a. Coughing phlegm is a common symptom in COPD: True b. Clearing phlegm is more difficult if you get dehydrated: Don't know c. Bronchodilator inhalers can help clear phlegm: True d. Phlegm causes harm if swallowed: False e. Clearing phlegm can be assisted by breathing exercises: True 6. Chest infections / exacerbations: a. Chest infections often cause coughing of blood: Don't know b. Chest infection phlegm usually becomes coloured (ylw/grn): True cExerbations (episodes of worsening) can occur in the absence of chest infection: Don't know d. Chest infections are always accompanied by a high temperature: False e. Steroid tablets should be taken whenever there is an exacerbation: False 7. Excercise in COPD: aWalking excercises better than breathing to improve fitness: False b. Exercise should be avoided as it strains the lungs: False c. Exercise can help maintain your bone density: True d. Exercise helps relieve depression: True e. Exercise should be stopped if it makes you breathless: True 8. Smoking: a. Stopping smoking will reduce the risk of heart disease: True b. Stopping smoking will slow down further lung damage: True c. Stopping smoking is pointless as the damage is done: False d.Stopping smoking usually results in improved lung function: True eNicotine replacement therapy only available on prescription: Don't know 9. Vaccination: a. A flu jab is recommended every year: True b. You can get flu from having a flu jab: True c. You can only have a flu jab if you are 65 or over: False d. A pneumonia jab protects against all forms of pneumonia: False e.You can have a pneumonia jab and a flu job on the same day: Don't know 10. Inhaled bronchodilators: a. Bronchodilators act quickly (within 10 minutes): False b. Both short & long acting bronchodilators can be taken on the same day: True c. Spacers (volumatic,nebuhaler,serochamber)should be dried w/atowel after washing: False d. A spacer device increases the medication to the lungs: True e. Tremor may be a side effect of bronchodilators: Don't know 11. Antibiotic treatment in COPD: a. To be effective, the course should last at least 10 days: True b. Excessive use of antibiotics can cause resistant bacteria (germs): Don't know c. Antibiotics will clear all chest infections: False d. Antibiotic treatment is necessary for an exacerbation (worsening) however mild: Don't know e. Seek advice if antibiotics cause severe diarrhoea: True 12. Steroid tablets given for COPD (eg Prednisolone): a. Steroid tablets help strengthen muscles: False b. Steroid tablets should be avoided if there is a chest infection: False c. The risk of long-term side effects due to steroids is less w/short courses then w/continous treatment: True dIndigestion is common side effect from using steroid tablet: Don't know e. Steroid tablets can increase your appetite: True 13. Inhaled steroids (brown, red or orange): a. Inhaled steroids should be stopped if you are given steroid tablets: False bSteroid inhalers can be used for rapid relief breathlessnes: False c. Spacer devices reduce the risk of getting thrush in the mouth: True d.Steroid inhaler should be taken before your bronchodilator: False e. Inhaled steroids improve lung function in COPD: True COPD Assessment Test [CAT] Questions Never cough = 0, Cough all the time = 5: 4 No phlegm = 0, Chest full of phlegm = 5: 5 No chest tightness = 0, Chest very tight = 5: 4 No breathless w/exertion = 0, Very breathless w/exertion = 5: 5 No limitations w/activity = 0, Very limited w/activity = 5: 5 Confident leaving home = 0, Not at all confident = 5: 5 Sleep soundly = 0, Don't sleep soundly = 5: 1 Lots of energy = 0, No energy at all = 5: 5 Total CAT score:: 34 Self-Efficacy 6-Item Scale Initial Assessment: We would like to know how confident you are in doing certain activities. Please select your confidence level for: Fatigue Select Number: 1 Physical Discomfort or Pain Select Number: 1 Emotional Distress Select Number: 1 Other Symptoms or Health Problems Select Number: 9 Different Tasks and Activities Select Number: 10 Medication Select Number: 10 Total Score:: 5 Nutrition Survey Nutrition Survey Instructions Scoring Instructions Nutrition Survey Initial: Have you lost >10 lbs over the past 2 months without trying?: No Are you following a special diet at home for diabetes, low fat, or low salt?: No Are you interested in meeting with a dietitian for help understanding your diet?: Yes Do you eat less than 3 meals a day?: No Do you eat fatty meats (galeano, sausage, ribs, etc), fried foods, desserts, large amounts of salad dressings, margarine, butter, or cheese most days?: No Do you have food allergies? [Enter types in comment field]: No Do you eat in restaurants more than 3 times a week?: No Do you season food with salt, seasoning salt, or garlic salt?: No Do you used canned, boxed, frozen meals, or soups, seasoning packets?: Yes Total Score:: 2
[2023-12-26 08:34] VITALS: BP 174/93; O2SAT 95; BMI 36.5
[2023-12-26 08:39] VITALS: BP 174/93; PULSE 78; RESP 18; TEMP 36.9; O2SAT 95; BMI 36.0
== END | disposition home or self-care (01) ==
LOC: PR 08:03
PROVIDERS: PCP Family Medicine; Referring Provider Internal Medicine Critical Care Medicine; Visit Provider Internal Medicine Critical Care Medicine
DX: J44.9 Chronic obstructive pulmonary disease, unspecified (principal)

== ENCOUNTER 2024-01-30 10:15 | Outpatient (RCR) | payer OTHER, SELFPAY ==
[2023-12-26 08:34] VITALS: BMI 36.5
--- NOTE | 2024-01-25 10:09 | PCM.PR.TP ---
Exercise - Initial Assessment Visit Session Number:: 8 Physician Prescribed Exercise Modalities: Treadmill, [employer] Airdyne AD-7 and [employer] Stepper Current METSs:: 4.2 Target HR:: 133 Current RPD:: 3 Maximum Exercise HR:: 123 Resting Blood Pressure: 140/80 Maximum Exercise Blood Pressure: 172/72 Minimum SpO2 with exercise: 89 EKG Type: NSR to ST Nutrition/Wt Mgmt - Initial Visit Session Number:: 8 Weight Management Admit Height:: 5 ft 8 in Admit Weight:: 240 lb Admit BMI:: 36.5 Nutrition/Wt Mgmt - 30-Day Visit Date of Eval: 01/25/24 Session Number:: 8 Weight Management Height: 5 ft 8 in Weight:: 240 lb BMI: 36.5 Weight Goals Progress:: Progressing (pt to attend nutrition class) Nutrition/Wt Mgmt - 60-Day Visit Session Number:: 8 Weight Management Height: 5 ft 8 in Weight:: 240 lb BMI: 36.5 Nutrition/Wt Mgmt - 90-Day Visit Session Number:: 8 Weight Management Height: 5 ft 8 in Weight:: 240 lb BMI: 36.5 Nutrition/Wt Mgmt - Final Visit Session Number:: 8 Weight Management Height: 5 ft 8 in Weight:: 240 lb BMI: 36.5 Psychosocial - Initial Assess Visit Session Number:: 8 Problems/Goals History of Emotional Disorders: Anxious and Depression Intervention/Plan: See List Interventions/Plan:: Assess stressors,coping strategies & signs of derpression on admission, Instruct/assist pt to develop coping & personal stress Mgt strategies, Refer to Behavioral Health if appropriate, Refer to Physician if appropriate, Instruct patient to recognize signs & symptoms of depression, Instruct patient to recog and Other additional plan/intervention Psychosocial - 30-Day Visit Date of Eval: 01/25/24 Session Number:: 8 Problems/Goals History of Emotional Disorders: Anxious and Depression Plan Interventions/Plan:: Assess stressors,coping strategies & signs of derpression on admission, Instruct/assist pt to develop coping & personal stress Mgt strategies, Refer to Behavioral Health if appropriate, Refer to Physician if appropriate, Instruct patient to recognize signs & symptoms of depression, Instruct patient to recog and Other additional plan/intervention Psychosocial - 60-Day Visit Session Number:: 8 Problems/Goals History of Emotional Disorders: Anxious and Depression Plan Interventions/Plan:: Assess stressors,coping strategies & signs of derpression on admission, Instruct/assist pt to develop coping & personal stress Mgt strategies, Refer to Behavioral Health if appropriate, Refer to Physician if appropriate, Instruct patient to recognize signs & symptoms of depression, Instruct patient to recog and Other additional plan/intervention Psychosocial - 90-Day Visit Session Number:: 8 Problems/Goals History of Emotional Disorders: Anxious and Depression Plan Interventions/Plan:: Assess stressors,coping strategies & signs of derpression on admission, Instruct/assist pt to develop coping & personal stress Mgt strategies, Refer to Behavioral Health if appropriate, Refer to Physician if appropriate, Instruct patient to recognize signs & symptoms of depression, Instruct patient to recog and Other additional plan/intervention Psychosocial - Final Assess Visit Session Number:: 8 Problems/Goals History of Emotional Disorders: Anxious and Depression Plan Interventions/Plan:: Assess stressors,coping strategies & signs of derpression on admission, Instruct/assist pt to develop coping & personal stress Mgt strategies, Refer to Behavioral Health if appropriate, Refer to Physician if appropriate, Instruct patient to recognize signs & symptoms of depression, Instruct patient to recog and Other additional plan/intervention Oxygen & Oxygen Titration Init Visit Session Number:: 8 Initial Assessment SpO2:: 89 Oxygen & Oxygen Titration 30D Visit Date of Eval: 01/25/24 Session Number:: 8 Reassessment SpO2:: 89 Oxygen & Oxygen Titration 60D Visit Date of Eval: 01/25/24 Session Number:: 8 Reassessment SpO2:: 89 Oxygen & Oxygen Titration 90D Visit Date of Eval: 01/25/24 Session Number:: 8 Reassessment SpO2:: 89 Oxygen & Oxygen Titration DANISH Visit Date of Eval: 01/25/24 Session Number:: 8 Reassessment SpO2:: 89 Core Components - Initial Visit Session Number:: 8 Hypertension Hypertension Diagnosis:: Hypertension ICD-10 I10 BP: 140/80 [place] [employer] Hypertension Guidelines Blood Pressure: 172/72 Outcomes/Goals: Able to verbalize/achieve optimal blood pressure <130/80, Incorporates diet changes & exercise for blood pressure control by DC and Other additional outcomes/goals Tobacco - Initial Assessment Tobacco Program Goals Stages of Change:: Action Do you have family support?: Yes Tobacco Use: Non-smoker Diabetes Diabetes:: No Core Components - 30 DAYS Visit Date of Eval: 01/25/24 Session Number:: 8 Hypertension Hypertension Diagnosis:: Hypertension ICD-10 I10 Resting Blood Pressure:: 140/80 [place] [employer] Hypertension Guidelines Peak Exercise Blood Pressure:: 172/72 Change in medication: No Outcomes/Goals: Able to verbalize/achieve optimal blood pressure <130/80, Incorporates diet changes & exercise for blood pressure control by DC and Other additional outcomes/goals Interventions/plan: Instruct on optimal blood pressure, hypertension & medications, Instruct on effects of sodium, alcohol, stress, exercise &hypertension and Other additional plan/interventions 30 day Reassessments:: Progressing Reassessment Notes & Comments:: pt encouraged to take his meds Tobacco - 30-Day Tobacco Program Goals Stages of Change:: Action Learning Barriers: Participates in education Do you have family support?: Yes Tobacco Use: Non-smoker Exacerbation Mgmt & Airway Clearance Reassessment: Demonstrates knowledge of O2 Rx at rest and Demonstrates knowledge of O2 Rx with exercise Diabetes Diabetes:: No Core Components - 60 DAYS Visit Session Number:: 8 Hypertension Hypertension Diagnosis:: Hypertension ICD-10 I10 Resting Blood Pressure:: 140/80 [place] [employer] Hypertension Guidelines Peak Exercise Blood Pressure:: 172/72 Change in medication: No Outcomes/Goals: Able to verbalize/achieve optimal blood pressure <130/80, Incorporates diet changes & exercise for blood pressure control by DC and Other additional outcomes/goals Interventions/plan: Instruct on optimal blood pressure, hypertension & medications, Instruct on effects of sodium, alcohol, stress, exercise &hypertension and Other additional plan/interventions 60 day Reassessments:: Progressing Reassessment Notes & Comments:: pt encouraged to take his meds Tobacco - 60-Day Tobacco Program Goals Stages of Change:: Action Learning Barriers: Participates in education Do you have family support?: Yes Tobacco Use: Non-smoker Exacerbation Mgmt & Airway Clearance Reassessment: Demonstrates knowledge of O2 Rx at rest and Demonstrates knowledge of O2 Rx with exercise Diabetes Diabetes:: No Core Components - 90 DAYS Visit Session Number:: 8 Hypertension Hypertension Diagnosis:: Hypertension ICD-10 I10 Resting Blood Pressure:: 140/80 [place] [employer] Hypertension Guidelines Peak Exercise Blood Pressure:: 172/72 Outcomes/Goals: Able to verbalize/achieve optimal blood pressure <130/80, Incorporates diet changes & exercise for blood pressure control by DC and Other additional outcomes/goals Interventions/plan: Instruct on optimal blood pressure, hypertension & medications, Instruct on effects of sodium, alcohol, stress, exercise &hypertension and Other additional plan/interventions 90 day Reassessments:: Progressing Reassessment Notes & Comments:: pt encouraged to take his meds Tobacco - 90-Day Tobacco Program Goals Stages of Change:: Action Learning Barriers: Participates in education Do you have family support?: Yes Tobacco Use: Non-smoker Diabetes Diabetes:: No Core Components - Final Visit Session Number:: 8 Hypertension Hypertension Diagnosis:: Hypertension ICD-10 I10 Resting Blood Pressure:: 140/80 [place] [employer] Hypertension Guidelines Peak Exercise Blood Pressure:: 172/72 Outcomes/Goals: Able to verbalize/achieve optimal blood pressure <130/80, Incorporates diet changes & exercise for blood pressure control by DC and Other additional outcomes/goals Tobacco - Final Tobacco Program Goals Stages of Change:: Action Learning Barriers: Participates in education Do you have family support?: Yes Tobacco Use: Non-smoker Diabetes Diabetes:: No Patient Health Questionnaire PHQ-9 Screening 30-Day Re-eval Assessment: 1. Little interest or pleasure in doing things: Nearly every day 2. Feeling down, depressed, or hopeless: Nearly every day 3. Trouble falling or staying asleep, or sleeping too much: Nearly every day 4. Feeling tired or having little energy: Nearly every day 5. Poor appetite or overeating: More than half the days 6. Feeling bad about yourself -- or that you are a failure or have let yourself or your family down: Nearly every day 7. Trouble concentrating on things, such as reading the newspaper or watching television: Nearly every day 8. Moving or speaking so slowly that other people could have noticed. Or the opposite - being so fidgety or restless that you have been moving around a lot more than usual: Nearly every day 9. Thoughts that you would be better off , or of hurting yourself in some way: Not at all How difficult have these problems made it for you to do your work, take care of things at home, or get along with other people?: Extremely difficult Total Score: 23 Knowledge Questionaire (BCKQ) Information Information: [place] COPD Knowledge Questionnaire (BCKQ) This questionnaire is designed to find out what you know about your lung problem. It should be completed without help form anyone else. This usually takes between 10 and 20 minutes. Your answers will help us to find out what information you need to help you to understand and manage your lung condition. [place] which you think is the correct answer. Self-Efficacy 6-Item Scale 30-Day Re-eval Assessment: We would like to know how confident you are in doing certain activities. Please select your confidence level for: Fatigue Select Number: 1 Physical Discomfort or Pain Select Number: 1 Emotional Distress Select Number: 1 Other Symptoms or Health Problems Select Number: 9 Different Tasks and Activities Select Number: 10 Medication Select Number: 10 Total Score:: 5 Nutrition Survey Nutrition Survey Instructions Scoring Instructions
[2024-01-25 10:13] VITALS: BP 140/80
[2024-01-25 10:23] VITALS: BP 140/80; BP 172/72; O2SAT 89; BMI 36.5
== END 2024-01-30 23:59 ==
LOC: PR 10:15
PROVIDERS: PCP Family Medicine; Referring Provider Internal Medicine Critical Care Medicine; Visit Provider Internal Medicine Critical Care Medicine
DX: J44.9 Chronic obstructive pulmonary disease, unspecified (principal)
CPT/HCPCS: 97150; 94626

== ENCOUNTER 2024-02-29 10:15 | Outpatient (RCR) | payer OTHER, SELFPAY ==
[2024-01-25 10:23] VITALS: BMI 36.5
[2024-01-31 00:08] VITALS: BP 140/80; BP 172/72; BMI 36.5
--- NOTE | 2024-02-22 09:09 | PR.ITP_ITS ---
Exercise - Initial Assessment Visit Session Number:: 20 Physician Prescribed Exercise Modalities: Treadmill, [employer] Airdyne AD-7 and [employer] Stepper Target HR:: 133 (102-133) Current RPD:: 2-3 Maximum Exercise HR:: 118 Resting Blood Pressure: 140/68 Maximum Exercise Blood Pressure: 160/60 Minimum SpO2 with exercise: 92 EKG Type: NSR to ST Nutrition/Wt Mgmt - Initial Visit Session Number:: 20 Weight Management Admit Height:: 5 ft 8 in Admit Weight:: 240 lb Admit BMI:: 36.5 Nutrition/Wt Mgmt - 30-Day Visit Date of Eval: 02/22/24 Session Number:: 20 Weight Management Height: 5 ft 8 in Weight:: 240 lb BMI: 36.5 Nutrition/Wt Mgmt - 60-Day Visit Date of Eval: 02/22/24 Session Number:: 20 Weight Management Height: 5 ft 8 in Weight:: 240 lb BMI: 36.5 Weight Goals Progress:: Progressing (pt attending nutrition class and met with director of teacher education 02/18/24) Nutrition/Wt Mgmt - 90-Day Visit Session Number:: 20 Weight Management Height: 5 ft 8 in Weight:: 240 lb BMI: 36.5 Weight Goals Progress:: Progressing (pt attending nutrition class and met with director of teacher education 02/18/24) Nutrition/Wt Mgmt - Final Visit Session Number:: 20 Weight Management Height: 5 ft 8 in Weight:: 240 lb BMI: 36.5 Psychosocial - Initial Assess Visit Session Number:: 20 Problems/Goals History of Emotional Disorders: Anxious and Depression Psychosocial Goals: 1. Patient is free from overwhelming symtoms of depression (or anxiety, 2. Identifies personal stressors & states the strategies for managing, 3. Identifies activities to decrease isolation and/or symptoms of, 4. Improved psychosocial coping skills., 5. Verbalizes coping strategies., 6. Adequate treatment of depression. and 7. Improved Q.O.L. Psychosocial Test Tool Used:: Pulmonary QOL and PHQ-9 Questionnaire Referral to Behavioral Health PS - Interventions: Yes: Attend Stress Management Classes Intervention/Plan: See List Interventions/Plan:: Assess stressors,coping strategies & signs of derpression on admission, Instruct/assist pt to develop coping & personal stress Mgt strategies, Refer to Behavioral Health if appropriate, Refer to Physician if appropriate, Instruct patient to recognize signs & symptoms of depression, Instruct patient to recog and Other additional plan/intervention Psychosocial - 30-Day Visit Date of Eval: 02/22/24 Session Number:: 20 Problems/Goals History of Emotional Disorders: Anxious and Depression Psychosocial Goals: 1. Patient is free from overwhelming symtoms of depression (or anxiety, 2. Identifies personal stressors & states the strategies for managing, 3. Identifies activities to decrease isolation and/or symptoms of, 4. Improved psychosocial coping skills., 5. Verbalizes coping strategies., 6. Adequate treatment of depression. and 7. Improved Q.O.L. Psychosocial Test Tool Used:: Pulmonary QOL and PHQ-9 Questionnaire Referral to Behavioral Health PS - Interventions: Yes: Attend Stress Management Classes Plan Interventions/Plan:: Assess stressors,coping strategies & signs of derpression on admission, Instruct/assist pt to develop coping & personal stress Mgt strategies, Refer to Behavioral Health if appropriate, Refer to Physician if appropriate, Instruct patient to recognize signs & symptoms of depression, Instruct patient to recog and Other additional plan/intervention Psychosocial - 60-Day Visit Date of Eval: 02/22/24 Session Number:: 20 Problems/Goals History of Emotional Disorders: Anxious and Depression Psychosocial Goals: 1. Patient is free from overwhelming symtoms of depression (or anxiety, 2. Identifies personal stressors & states the strategies for managing, 3. Identifies activities to decrease isolation and/or symptoms of, 4. Improved psychosocial coping skills., 5. Verbalizes coping strategies., 6. Adequate treatment of depression. and 7. Improved Q.O.L. Psychosocial Test Tool Used:: Pulmonary QOL and PHQ-9 Questionnaire Referral to Behavioral Health PS - Interventions: Yes: Attend Stress Management Classes Plan Interventions/Plan:: Assess stressors,coping strategies & signs of derpression on admission, Instruct/assist pt to develop coping & personal stress Mgt strategies, Refer to Behavioral Health if appropriate, Refer to Physician if appropriate, Instruct patient to recognize signs & symptoms of depression, Instruct patient to recog and Other additional plan/intervention Psychosocial - 90-Day Visit Session Number:: 20 Problems/Goals History of Emotional Disorders: Anxious and Depression Psychosocial Goals: 1. Patient is free from overwhelming symtoms of depression (or anxiety, 2. Identifies personal stressors & states the strategies for managing, 3. Identifies activities to decrease isolation and/or symptoms of, 4. Improved psychosocial coping skills., 5. Verbalizes coping strategies., 6. Adequate treatment of depression. and 7. Improved Q.O.L. Psychosocial Test Tool Used:: Pulmonary QOL and PHQ-9 Questionnaire Referral to Behavioral Health PS - Interventions: Yes: Attend Stress Management Classes Plan Interventions/Plan:: Assess stressors,coping strategies & signs of derpression on admission, Instruct/assist pt to develop coping & personal stress Mgt strategies, Refer to Behavioral Health if appropriate, Refer to Physician if appropriate, Instruct patient to recognize signs & symptoms of depression, Instruct patient to recog and Other additional plan/intervention Psychosocial - Final Assess Visit Session Number:: 20 Problems/Goals History of Emotional Disorders: Anxious and Depression Psychosocial Goals: 1. Patient is free from overwhelming symtoms of depression (or anxiety, 2. Identifies personal stressors & states the strategies for managing, 3. Identifies activities to decrease isolation and/or symptoms of, 4. Improved psychosocial coping skills., 5. Verbalizes coping strategies., 6. Adequate treatment of depression. and 7. Improved Q.O.L. Psychosocial Test Tool Used:: Pulmonary QOL and PHQ-9 Questionnaire Referral to Behavioral Health PS - Interventions: Yes: Attend Stress Management Classes Plan Interventions/Plan:: Assess stressors,coping strategies & signs of derpression on admission, Instruct/assist pt to develop coping & personal stress Mgt strategies, Refer to Behavioral Health if appropriate, Refer to Physician if appropriate, Instruct patient to recognize signs & symptoms of depression, Instruct patient to recog and Other additional plan/intervention Oxygen & Oxygen Titration Init Visit Session Number:: 20 Initial Assessment SpO2:: 92 Oxygen & Oxygen Titration 30D Visit Date of Eval: 02/22/24 Session Number:: 20 Reassessment SpO2:: 92 Oxygen & Oxygen Titration 60D Visit Date of Eval: 02/22/24 Session Number:: 20 Reassessment Reassessment- 60 Days: Demonstrate knowledge of O2 Rx at rest & w/exercise and Using O2 as Rx'd SpO2:: 92 Oxygen & Oxygen Titration 90D Visit Date of Eval: 02/22/24 Session Number:: 20 Reassessment SpO2:: 92 Oxygen & Oxygen Titration DANISH Visit Date of Eval: 02/22/24 Session Number:: 20 Reassessment SpO2:: 92 [employer] - Initial Visit Session Number:: 20 Hypertension Hypertension Diagnosis:: Hypertension ICD-10 I10 BP: 140/68 [employer] Hypertension Guidelines Blood Pressure: 160/60 Outcomes/Goals: Able to verbalize/achieve optimal blood pressure <130/80, Incorporates diet changes & exercise for blood pressure control by DC and Other additional outcomes/goals Tobacco - Initial Assessment Tobacco Program Goals Tobacco Use: Non-smoker [employer] - 30 DAYS Visit Date of Eval: 02/22/24 Session Number:: 20 Hypertension Hypertension Diagnosis:: Hypertension ICD-10 I10 Resting Blood Pressure:: 140/68 [employer] Hypertension Guidelines Peak Exercise Blood Pressure:: 160/60 Change in medication: No Outcomes/Goals: Able to verbalize/achieve optimal blood pressure <130/80, Incorporates diet changes & exercise for blood pressure control by DC and Other additional outcomes/goals Interventions/plan: Instruct on optimal blood pressure, hypertension & medications, Instruct on effects of sodium, alcohol, stress, exercise &hypertension and Other additional plan/interventions 30 day Reassessments:: Progressing Reassessment Notes & Comments:: pt encouraged to take his meds as prescribed Tobacco - 30-Day Tobacco Program Goals Tobacco Use: Non-smoker Exacerbation Mgmt & Airway Clearance Reassessment: Demonstrates knowledge of O2 Rx at rest and Demonstrates knowledge of O2 Rx with exercise Bronchial Hygiene Plan: Yes: Pt demonstrates correctly for effective cough, Yes: Pt demo correct for CPT, Yes: Pt demo correct for device, Yes: Pt demo correct for sputum management, Yes: Pt demo correct for improved hydration, Yes: Pt demo correct for hand hygiene, Yes: Pt demo correct for evalute sputum, Yes: Pt demo correct for verbalize when to call MD and Yes: Pt demo correct for cleaning of respiratory equipment [employer] - 60 DAYS Visit Date of Eval: 02/22/24 Session Number:: 20 Hypertension Hypertension Diagnosis:: Hypertension ICD-10 I10 Resting Blood Pressure:: 140/68 [employer] Hypertension Guidelines Peak Exercise Blood Pressure:: 160/60 Change in medication: No Outcomes/Goals: Able to verbalize/achieve optimal blood pressure <130/80, Incorporates diet changes & exercise for blood pressure control by DC and Other additional outcomes/goals Interventions/plan: Instruct on optimal blood pressure, hypertension & medications, Instruct on effects of sodium, alcohol, stress, exercise &hypertension and Other additional plan/interventions 60 day Reassessments:: Progressing Reassessment Notes & Comments:: pt encouraged to take his meds as prescribed Tobacco - 60-Day Tobacco Program Goals Tobacco Use: Non-smoker Exacerbation Mgmt & Airway Clearance Reassessment: Demonstrates knowledge of O2 Rx at rest and Demonstrates knowledge of O2 Rx with exercise Bronchial Hygiene Plan: Yes: Pt demonstrates correctly for effective cough, Yes: Pt demo correct for CPT, Yes: Pt demo correct for device, Yes: Pt demo correct for sputum management, Yes: Pt demo correct for improved hydration, Yes: Pt demo correct for hand hygiene, Yes: Pt demo correct for evalute sputum, Yes: Pt demo correct for verbalize when to call MD and Yes: Pt demo correct for cleaning of respiratory equipment Medication Medication list reviewed:: Yes Taking medications 100% of the time:: Met [employer] - 90 DAYS Visit Session Number:: 20 Hypertension Hypertension Diagnosis:: Hypertension ICD-10 I10 Resting Blood Pressure:: 140/68 [employer] Hypertension Guidelines Peak Exercise Blood Pressure:: 160/60 Outcomes/Goals: Able to verbalize/achieve optimal blood pressure <130/80, Incorporates diet changes & exercise for blood pressure control by DC and Other additional outcomes/goals Interventions/plan: Instruct on optimal blood pressure, hypertension & medications, Instruct on effects of sodium, alcohol, stress, exercise &hypertension and Other additional plan/interventions 90 day Reassessments:: Progressing Reassessment Notes & Comments:: pt encouraged to take his meds as prescribed Tobacco - 90-Day Tobacco Program Goals Tobacco Use: Non-smoker Exacerbation Mgmt & Airway Clearance Bronchial Hygiene Plan: Yes: Pt demonstrates correctly for effective cough, Yes: Pt demo correct for CPT, Yes: Pt demo correct for device, Yes: Pt demo correct for sputum management, Yes: Pt demo correct for improved hydration, Yes: Pt demo correct for hand hygiene, Yes: Pt demo correct for evalute sputum, Yes: Pt demo correct for verbalize when to call MD and Yes: Pt demo correct for cleaning of respiratory equipment [employer] - Final Visit Session Number:: 20 Hypertension Hypertension Diagnosis:: Hypertension ICD-10 I10 Resting Blood Pressure:: 140/68 [employer] Hypertension Guidelines Peak Exercise Blood Pressure:: 160/60 Outcomes/Goals: Able to verbalize/achieve optimal blood pressure <130/80, Incorporates diet changes & exercise for blood pressure control by DC and Other additional outcomes/goals Tobacco - Final Tobacco Program Goals Tobacco Use: Non-smoker Exacerbation Mgmt & Airway Clearance Bronchial Hygiene Plan: Yes: Pt demonstrates correctly for effective cough, Yes: Pt demo correct for CPT, Yes: Pt demo correct for device, Yes: Pt demo correct for sputum management, Yes: Pt demo correct for improved hydration, Yes: Pt demo correct for hand hygiene, Yes: Pt demo correct for evalute sputum, Yes: Pt demo correct for verbalize when to call MD and Yes: Pt demo correct for cleaning of respiratory equipment Patient Health Questionnaire PHQ-9 Screening 60-Day Re-eval Assessment: 1. Little interest or pleasure in doing things: Nearly every day 2. Feeling down, depressed, or hopeless: Nearly every day 3. Trouble falling or staying asleep, or sleeping too much: Nearly every day 4. Feeling tired or having little energy: More than half the days 5. Poor appetite or overeating: Nearly every day 6. Feeling bad about yourself -- or that you are a failure or have let yourself or your family down: Nearly every day 7. Trouble concentrating on things, such as reading the newspaper or watching television: Nearly every day 8. Moving or speaking so slowly that other people could have noticed. Or the opposite - being so fidgety or restless that you have been moving around a lot more than usual: Nearly every day 9. Thoughts that you would be better off , or of hurting yourself in some way: Not at all How difficult have these problems made it for you to do your work, take care of things at home, or get along with other people?: Extremely difficult Total Score: 23 Knowledge Questionaire (BCKQ) Information Information: [place] COPD Knowledge Questionnaire (BCKQ) This questionnaire is designed to find out what you know about your lung problem. It should be completed without help form anyone else. This usually takes between 10 and 20 minutes. Your answers will help us to find out what information you need to help you to understand and manage your lung condition. [place] which you think is the correct answer. Self-Efficacy 6-Item Scale 60-Day Re-eval Assessment: We would like to know how confident you are in doing certain activities. Please select your confidence level for: Fatigue Select Number: 1 Physical Discomfort or Pain Select Number: 1 Emotional Distress Select Number: 1 Other Symptoms or Health Problems Select Number: 9 Different Tasks and Activities Select Number: 10 Medication Select Number: 10 Total Score:: 5 Nutrition Survey Nutrition Survey Instructions Scoring Instructions
[2024-02-22 09:19] VITALS: BP 140/68; BP 160/60; O2SAT 92; BMI 36.5
== END 2024-03-01 23:59 ==
LOC: PR 10:15
PROVIDERS: PCP Family Medicine; Referring Provider Internal Medicine Critical Care Medicine; Visit Provider Internal Medicine Critical Care Medicine
DX: J44.9 Chronic obstructive pulmonary disease, unspecified (principal)
CPT/HCPCS: 97150; 97802; 94626

== ENCOUNTER → 2024-03-10 | Outpatient (CLI) | payer OTHER, SELFPAY ==
[2024-02-22 09:19] VITALS: BMI 36.5
[2024-03-10 12:55] LABS: PSA,Total- Diagnostic < 0.01 ng/mL (0.0-4.0)
== END | disposition home or self-care (01) ==
LOC: LAB 11:12
PROVIDERS: PCP Family Medicine; Referring Provider Urology; Visit Provider Urology
DX: C61 Malignant neoplasm of prostate (principal)
CPT/HCPCS: 36415; 84153

== ENCOUNTER → 2024-03-21 | Outpatient (CLI) | payer OTHER, SELFPAY ==
[2024-02-22 09:19] VITALS: BMI 36.5
[2024-03-21 17:49] LABS: Anion Gap 7 (5-15); BUN 16 mg/dL (7-18); Calcium,Total 8.7 mg/dL (8.5-10.1); Chloride 105 mmol/L (98-107); Creatinine, Serum 1.14 mg/dL (0.70-1.30); EST Glomerular Filtration Rate 69 mL/min (>60); Est Glom Filt Rate - Afr Amer 83 mL/min (>60); Glucose 134 mg/dL (74-106); Magnesium 1.7 mg/dL (1.6-2.6); Potassium 3.7 mmol/L (3.5-5.1); Sodium Level 136 mmol/L (136-145)
== END | disposition home or self-care (01) ==
LOC: MFPLAB 16:00
PROVIDERS: PCP Family Medicine; Visit Provider Family Medicine
DX: I10 Essential (primary) hypertension (principal)
CPT/HCPCS: 36415; 80048; 83735

== ENCOUNTER 2024-03-31 10:00 | Outpatient (RCR) | payer OTHER, SELFPAY ==
[2024-02-22 09:19] VITALS: BMI 36.5
[2024-03-02 00:39] VITALS: BP 140/80; BP 172/72; BMI 36.5
--- NOTE | 2024-03-24 08:56 | PR.ITP_ITS ---
Exercise - Initial Assessment Visit Session Number:: 32 Physician Prescribed Exercise Modalities: Treadmill, [employer] Airdyne AD-7 and Sci[employer] Stepper Current METSs:: 3.7 Target HR:: 133 (102-133) Current RPD:: 2 Maximum Exercise HR:: 118 Resting Blood Pressure: 118/60 Maximum Exercise Blood Pressure: 172/70 Minimum SpO2 with exercise: 91 EKG Type: NSR to ST Nutrition/Wt Mgmt - Initial Visit Session Number:: 32 Weight Management Admit Height:: 5 ft 8 in Admit Weight:: 240 lb Admit BMI:: 36.5 Nutrition/Wt Mgmt - 30-Day Visit Session Number:: 32 Weight Management Height: 5 ft 8 in Weight:: 240 lb BMI: 36.5 Nutrition/Wt Mgmt - 60-Day Visit Session Number:: 32 Weight Management Height: 5 ft 8 in Weight:: 240 lb BMI: 36.5 Weight Goals Progress:: Progressing (pt attended nutrition class and is encouraged to meet with investment accounting clerk) Nutrition/Wt Mgmt - 90-Day Visit Date of Eval: 03/24/24 Session Number:: 32 Weight Management Height: 5 ft 8 in Weight:: 240 lb BMI: 36.5 Weight Goals Progress:: Progressing (pt attended nutrition class and is encouraged to meet with investment accounting clerk) Nutrition/Wt Mgmt - Final Visit Session Number:: 32 Weight Management Height: 5 ft 8 in Weight:: 240 lb BMI: 36.5 Psychosocial - Initial Assess Visit Session Number:: 32 Problems/Goals History of Emotional Disorders: Anxious and Depression Psychosocial Goals: 2. Identifies personal stressors & states the strategies for managing, 3. Identifies activities to decrease isolation and/or symptoms of, 4. Improved psychosocial coping skills., 5. Verbalizes coping strategies., 6. Adequate treatment of depression. and 7. Improved Q.O.L. Psychosocial Test Tool Used:: Pulmonary QOL and PHQ-9 Questionnaire Referred to MD for counseling:: No Referral to Behavioral Health PS - Interventions: Yes: Attend Stress Management Classes Intervention/Plan: See List Interventions/Plan:: Assess stressors,coping strategies & signs of derpression on admission, Instruct/assist pt to develop coping & personal stress Mgt strategies, Refer to Behavioral Health if appropriate, Refer to Physician if appropriate, Instruct patient to recognize signs & symptoms of depression, Instruct patient to recog and Other additional plan/intervention Comments:: pt is currently doing well Psychosocial - 30-Day Visit Session Number:: 32 Problems/Goals History of Emotional Disorders: Anxious and Depression Psychosocial Goals: 2. Identifies personal stressors & states the strategies for managing, 3. Identifies activities to decrease isolation and/or symptoms of, 4. Improved psychosocial coping skills., 5. Verbalizes coping strategies., 6. Adequate treatment of depression. and 7. Improved Q.O.L. Psychosocial Test Tool Used:: Pulmonary QOL and PHQ-9 Questionnaire Referred to MD for counseling:: No Referral to Behavioral Health PS - Interventions: Yes: Attend Stress Management Classes Plan Interventions/Plan:: Assess stressors,coping strategies & signs of derpression on admission, Instruct/assist pt to develop coping & personal stress Mgt strategies, Refer to Behavioral Health if appropriate, Refer to Physician if appropriate, Instruct patient to recognize signs & symptoms of depression, Instruct patient to recog and Other additional plan/intervention Comments:: pt is currently doing well Psychosocial - 60-Day Visit Session Number:: 32 Problems/Goals History of Emotional Disorders: Anxious and Depression Psychosocial Goals: 2. Identifies personal stressors & states the strategies for managing, 3. Identifies activities to decrease isolation and/or symptoms of, 4. Improved psychosocial coping skills., 5. Verbalizes coping strategies., 6. Adequate treatment of depression. and 7. Improved Q.O.L. Psychosocial Test Tool Used:: Pulmonary QOL and PHQ-9 Questionnaire Referred to MD for counseling:: No Referral to Behavioral Health PS - Interventions: Yes: Attend Stress Management Classes Plan Interventions/Plan:: Assess stressors,coping strategies & signs of derpression on admission, Instruct/assist pt to develop coping & personal stress Mgt strategies, Refer to Behavioral Health if appropriate, Refer to Physician if appropriate, Instruct patient to recognize signs & symptoms of depression, Instruct patient to recog and Other additional plan/intervention Comments:: pt is currently doing well Psychosocial - 90-Day Visit Date of Eval: 03/24/24 Session Number:: 32 Problems/Goals History of Emotional Disorders: Anxious and Depression Psychosocial Goals: 2. Identifies personal stressors & states the strategies for managing, 3. Identifies activities to decrease isolation and/or symptoms of, 4. Improved psychosocial coping skills., 5. Verbalizes coping strategies., 6. Adequate treatment of depression. and 7. Improved Q.O.L. Psychosocial Test Tool Used:: Pulmonary QOL and PHQ-9 Questionnaire Referred to MD for counseling:: No Referral to Behavioral Health PS - Interventions: Yes: Attend Stress Management Classes Plan Interventions/Plan:: Assess stressors,coping strategies & signs of derpression on admission, Instruct/assist pt to develop coping & personal stress Mgt strategies, Refer to Behavioral Health if appropriate, Refer to Physician if appropriate, Instruct patient to recognize signs & symptoms of depression, Instruct patient to recog and Other additional plan/intervention Comments:: pt is currently doing well Psychosocial - Final Assess Visit Session Number:: 32 Problems/Goals History of Emotional Disorders: Anxious and Depression Psychosocial Goals: 2. Identifies personal stressors & states the strategies for managing, 3. Identifies activities to decrease isolation and/or symptoms of, 4. Improved psychosocial coping skills., 5. Verbalizes coping strategies., 6. Adequate treatment of depression. and 7. Improved Q.O.L. Psychosocial Test Tool Used:: Pulmonary QOL and PHQ-9 Questionnaire Referred to MD for counseling:: No Referral to Behavioral Health PS - Interventions: Yes: Attend Stress Management Classes Plan Interventions/Plan:: Assess stressors,coping strategies & signs of derpression on admission, Instruct/assist pt to develop coping & personal stress Mgt strategies, Refer to Behavioral Health if appropriate, Refer to Physician if appropriate, Instruct patient to recognize signs & symptoms of depression, Instruct patient to recog and Other additional plan/intervention Comments:: pt is currently doing well Oxygen & Oxygen Titration Init Visit Session Number:: 32 Initial Assessment SpO2:: 91 Oxygen & Oxygen Titration 30D Visit Session Number:: 32 Reassessment SpO2:: 91 Oxygen & Oxygen Titration 60D Visit Session Number:: 32 Reassessment SpO2:: 91 Oxygen & Oxygen Titration 90D Visit Session Number:: 32 Reassessment Oxygen & Oxygen Titration 90 days: None SpO2:: 91 Oxygen & Oxygen Titration DANISH Visit Session Number:: 32 Reassessment SpO2:: 91 Core Components - Initial Visit Session Number:: 32 Hypertension Hypertension Diagnosis:: Hypertension ICD-10 I10 BP: 118/60 Citizen Of [place] [employer] Hypertension Guidelines Blood Pressure: 172/70 Outcomes/Goals: Able to verbalize/achieve optimal blood pressure <130/80, Incorporates diet changes & exercise for blood pressure control by DC and Other additional outcomes/goals Tobacco - Initial Assessment Tobacco Program Goals Tobacco Use: Non-smoker Diabetes Diabetes:: No Core Components - 30 DAYS Visit Session Number:: 32 Hypertension Hypertension Diagnosis:: Hypertension ICD-10 I10 Resting Blood Pressure:: 118/60 Citizen Of [place] [employer] Hypertension Guidelines Peak Exercise Blood Pressure:: 172/70 Outcomes/Goals: Able to verbalize/achieve optimal blood pressure <130/80, Incorporates diet changes & exercise for blood pressure control by DC and Other additional outcomes/goals Interventions/plan: Instruct on optimal blood pressure, hypertension & medications, Instruct on effects of sodium, alcohol, stress, exercise &hypertension and Other additional plan/interventions 30 day Reassessments:: Progressing Reassessment Notes & Comments:: BP's are improving Tobacco - 30-Day Tobacco Program Goals Tobacco Use: Non-smoker Exacerbation Mgmt & Airway Clearance Bronchial Hygiene Plan: Yes: Pt demonstrates correctly for effective cough, Yes: Pt demo correct for CPT, Yes: Pt demo correct for device, Yes: Pt demo correct for NS nasal spray, Yes: Pt demo correct for sputum management, Yes: Pt demo correct for improved hydration, Yes: Pt demo correct for hand hygiene, Yes: Pt demo correct for evalute sputum, Yes: Pt demo correct for verbalize when to call MD and Yes: Pt demo correct for cleaning of respiratory equipment Medication Medication reassessment: Yes: Pt demonstrates correct technique timing for MDI, Yes: Pt demonstrates correct technique timing for DPI, Yes: Pt demonstrates correct technique timing for NEB and Yes: Pt demonstrates correct technique timing for spacer Diabetes Diabetes:: No Core Components - 60 DAYS Visit Session Number:: 32 Hypertension Hypertension Diagnosis:: Hypertension ICD-10 I10 Resting Blood Pressure:: 118/60 Citizen Of [place] [employer] Hypertension Guidelines Peak Exercise Blood Pressure:: 172/70 Outcomes/Goals: Able to verbalize/achieve optimal blood pressure <130/80, Incorporates diet changes & exercise for blood pressure control by DC and Other additional outcomes/goals Interventions/plan: Instruct on optimal blood pressure, hypertension & medications, Instruct on effects of sodium, alcohol, stress, exercise &hypertension and Other additional plan/interventions 60 day Reassessments:: Progressing Reassessment Notes & Comments:: BP's are improving Tobacco - 60-Day Tobacco Program Goals Tobacco Use: Non-smoker Exacerbation Mgmt & Airway Clearance Bronchial Hygiene Plan: Yes: Pt demonstrates correctly for effective cough, Yes: Pt demo correct for CPT, Yes: Pt demo correct for device, Yes: Pt demo correct for NS nasal spray, Yes: Pt demo correct for sputum management, Yes: Pt demo correct for improved hydration, Yes: Pt demo correct for hand hygiene, Yes: Pt demo correct for evalute sputum, Yes: Pt demo correct for verbalize when to call MD and Yes: Pt demo correct for cleaning of respiratory equipment Medication Medication reassessment: Yes: Pt demonstrates correct technique timing for MDI, Yes: Pt demonstrates correct technique timing for DPI, Yes: Pt demonstrates correct technique timing for NEB and Yes: Pt demonstrates correct technique timing for spacer Diabetes Diabetes:: No Core Components - 90 DAYS Visit Date of Eval: 03/24/24 Session Number:: 32 Hypertension Hypertension Diagnosis:: Hypertension ICD-10 I10 Resting Blood Pressure:: 118/60 Citizen Of [place] [employer] Hypertension Guidelines Peak Exercise Blood Pressure:: 172/70 Outcomes/Goals: Able to verbalize/achieve optimal blood pressure <130/80, Incorporates diet changes & exercise for blood pressure control by DC and Other additional outcomes/goals Interventions/plan: Instruct on optimal blood pressure, hypertension & medications, Instruct on effects of sodium, alcohol, stress, exercise &hypertension and Other additional plan/interventions 90 day Reassessments:: Progressing Reassessment Notes & Comments:: BP's are improving Tobacco - 90-Day Tobacco Program Goals Tobacco Use: Non-smoker Exacerbation Mgmt & Airway Clearance Reassessment: Demonstrates knowledge of O2 Rx at rest and Demonstrates knowledge of O2 Rx with exercise Bronchial Hygiene Plan: Yes: Pt demonstrates correctly for effective cough, Yes: Pt demo correct for CPT, Yes: Pt demo correct for device, Yes: Pt demo correct for NS nasal spray, Yes: Pt demo correct for sputum management, Yes: Pt demo correct for improved hydration, Yes: Pt demo correct for hand hygiene, Yes: Pt demo correct for evalute sputum, Yes: Pt demo correct for verbalize when to call MD and Yes: Pt demo correct for cleaning of respiratory equipment Medication Medication list reviewed:: Yes Taking medications 100% of the time:: Met Medication reassessment: Yes: Pt demonstrates correct technique timing for MDI, Yes: Pt demonstrates correct technique timing for DPI, Yes: Pt demonstrates correct technique timing for NEB and Yes: Pt demonstrates correct technique timing for spacer Diabetes Diabetes:: No Core Components - Final Visit Session Number:: 32 Hypertension Hypertension Diagnosis:: Hypertension ICD-10 I10 Resting Blood Pressure:: 118/60 Citizen Of [place] [employer] Hypertension Guidelines Peak Exercise Blood Pressure:: 172/70 Outcomes/Goals: Able to verbalize/achieve optimal blood pressure <130/80, Incorporates diet changes & exercise for blood pressure control by DC and Other additional outcomes/goals Tobacco - Final Tobacco Program Goals Tobacco Use: Non-smoker Exacerbation Mgmt & Airway Clearance Bronchial Hygiene Plan: Yes: Pt demonstrates correctly for effective cough, Yes: Pt demo correct for CPT, Yes: Pt demo correct for device, Yes: Pt demo correct for NS nasal spray, Yes: Pt demo correct for sputum management, Yes: Pt demo correct for improved hydration, Yes: Pt demo correct for hand hygiene, Yes: Pt demo correct for evalute sputum, Yes: Pt demo correct for verbalize when to call MD and Yes: Pt demo correct for cleaning of respiratory equipment Medication Medication reassessment: Yes: Pt demonstrates correct technique timing for MDI, Yes: Pt demonstrates correct technique timing for DPI, Yes: Pt demonstrates correct technique timing for NEB and Yes: Pt demonstrates correct technique timing for spacer Diabetes Diabetes:: No Patient Health Questionnaire PHQ-9 Screening 90-Day Re-eval Assessment: 1. Little interest or pleasure in doing things: Nearly every day 2. Feeling down, depressed, or hopeless: Nearly every day 3. Trouble falling or staying asleep, or sleeping too much: Nearly every day 4. Feeling tired or having little energy: More than half the days 5. Poor appetite or overeating: Nearly every day 6. Feeling bad about yourself -- or that you are a failure or have let yourself or your family down: Nearly every day 7. Trouble concentrating on things, such as reading the newspaper or watching television: Nearly every day 8. Moving or speaking so slowly that other people could have noticed. Or the opposite - being so fidgety or restless that you have been moving around a lot more than usual: Nearly every day 9. Thoughts that you would be better off , or of hurting yourself in some way: Not at all How difficult have these problems made it for you to do your work, take care of things at home, or get along with other people?: Extremely difficult Total Score: 23 Knowledge Questionaire (BCKQ) Information Information: [place] COPD Knowledge Questionnaire (BCKQ) This questionnaire is designed to find out what you know about your lung problem. It should be completed without help form anyone else. This usually takes between 10 and 20 minutes. Your answers will help us to find out what information you need to help you to understand and manage your lung condition. [place] which you think is the correct answer. Self-Efficacy 6-Item Scale 90-Day Re-eval Assessment: We would like to know how confident you are in doing certain activities. Please select your confidence level for: Fatigue Select Number: 1 Physical Discomfort or Pain Select Number: 1 Emotional Distress Select Number: 1 Other Symptoms or Health Problems Select Number: 9 Different Tasks and Activities Select Number: 10 Medication Select Number: 10 Total Score:: 5 Nutrition Survey Nutrition Survey Instructions Scoring Instructions
[2024-03-24 09:11] VITALS: BP 118/60; BP 172/70; O2SAT 91; BMI 36.5
== END 2024-03-31 23:59 ==
LOC: PR 10:00
PROVIDERS: PCP Family Medicine; Referring Provider Internal Medicine Critical Care Medicine; Visit Provider Internal Medicine Critical Care Medicine
DX: J44.9 Chronic obstructive pulmonary disease, unspecified (principal)
CPT/HCPCS: 97150; 94626

== ENCOUNTER 2024-04-04 09:30 | Outpatient (RCR) | payer OTHER, SELFPAY ==
[2024-03-24 09:11] VITALS: BMI 36.5
[2024-04-01 00:18] VITALS: BP 140/80; BP 172/72; BMI 36.5
== END 2024-05-01 23:59 ==
LOC: PR 09:30
PROVIDERS: PCP Family Medicine; Referring Provider Internal Medicine Critical Care Medicine; Visit Provider Internal Medicine Critical Care Medicine
DX: J44.9 Chronic obstructive pulmonary disease, unspecified (principal)
CPT/HCPCS: 97150; 94626

== ENCOUNTER → 2024-04-10 | Outpatient (CLI) | payer OTHER, SELFPAY ==
[2024-03-24 09:11] VITALS: BMI 36.5
--- NOTE | 2024-04-10 15:40 | RAD_ITS ---
EXAM: XR CHEST, 2 VIEWS CLINICAL INDICATION: Acute bronchitis TECHNIQUE: Frontal and lateral views of the chest. COMPARISON: 12/17/2020. FINDINGS: LUNGS AND PLEURAL SPACES: Unremarkable. No consolidation or edema. No pneumothorax. No effusion. HEART: Unremarkable. Cardiac silhouette not enlarged. MEDIASTINUM: Central airways and mediastinal contour are unremarkable. BONES/JOINTS: Unremarkable. No acute fracture. SOFT TISSUES: Unremarkable. RAD/Chest PA and Lateral IMPRESSION: No radiographic evidence of acute cardiopulmonary disease and unchanged. Electronically Signed: Kelechi Boland MD at 15:50 EDT ,
== END | disposition home or self-care (01) ==
PROVIDERS: PCP Family Medicine; Referring Provider Family Medicine; Visit Provider Family Medicine
DX: J20.9 Acute bronchitis, unspecified (principal)
CPT/HCPCS: 71046

== ENCOUNTER → 2024-04-22 | Outpatient (CLI) | payer OTHER, SELFPAY ==
[2024-03-24 09:11] VITALS: BMI 36.5
[2024-04-22 09:59] LABS: Bacteria 0 SEEN /hpf (None Seen); Mucous, Urine 0 SEEN /hpf (<or=2+); Squamous Epithelial Cells - UA 0 SEEN /hpf (0-5); White Blood Cells 0 SEEN /hpf (0-5)
[2024-04-22 10:35] LABS: Absolute Lymphocyte Count 0.78 X10^3/uL (0.83-4.51); Absolute Neutrophil Count 2.7 X10^3/uL (2.0-7.7); Basophil# 0.03 X10^3/uL; Basophil% 0.7 % (0-1); Eosinophil# 0.26 X10^3/uL; Hematocrit 34.5 % (40-54); Hemoglobin 11.4 g/dL (13.0-16.5); Lymphocyte # 0.78 X10^3/ul (0.83-4.51); Mean Corpuscular Hgb 31.1 pg (27.0-32.0); Mean Platelet Vol. 9.4 fl (6.2-12.0); Monocyte% 11.5 % (0-10); NRBC Flagged by Analyzer 0 % (0-5); Neutrophil # 2.74 X10^3/uL (2.7-7.7); Neutrophil % 63.3 % (47-70); Platelet Count 235 K/mm3 (150-450); RBC Distribution Width CV 12.8 % (11.6-14.6); RBC Distribution Width SD 43.6 fl (35.1-43.9); Red Blood Count 3.67 M/mm3 (4.6-6.2); White Blood Count 4.3 K/mm3 (4.4-11.0)
[2024-04-22 10:36] LABS: Color, Urine Yellow (Yellow); Glucose, Dipstick Normal (Normal); Ketone-Dipstick Negative (Negative); Leukocyte Esterase-Dipstick Negative /ul (Negative); Nitrite-Dipstick Negative (Negative); Occult Blood-Urine 10 /ul (Negative); Protein-Dipstick 15 mg/dl (Negative); Specific Gravity, Urine 1.015 (1.002-1.030); Urine Bilirubin Dipstick Negative (Negative); Urine Clarity Clear (Clear); Urine Urobilinogen Normal (Normal)
[2024-04-22 10:45] LABS: Red Blood Cells-Urine 0-5 SEEN /hpf (0-5)
[2024-04-22 11:05] LABS: Vitamin D,25 Hydroxy 31.1 ng/mL
[2024-04-22 11:22] LABS: AST(SGOT) 13 U/L (15-37); Alanine Aminotransfer ALT/SGPT 33 U/L (16-61); Albumin, Serum 3.4 g/dL (3.2-5.0); Alkaline Phosphatase 80 U/L (45-117); Anion Gap 4 (5-15); BUN 17 mg/dL (7-18); BUN/Creat Ratio 16.7 RATIO (10-20); Calcium,Total 9.4 mg/dL (8.5-10.1); Chloride 106 mmol/L (98-107); Cholesterol 197 mg/dL (200); Creatinine, Serum 1.02 mg/dL (0.70-1.30); EST Glomerular Filtration Rate 78 mL/min (>60); Est Glom Filt Rate - Afr Amer 95 mL/min (>60); Ferritin 344 ng/mL (26-388); Globulin 3.5 g/dL (2.2-4.2); Glucose 114 mg/dL (74-106); High Density Lipoprotein 46 mg/dL; Iron 69 ug/dL (65-175); Iron Binding Capacity,Total 290 ug/dL (250-450); Magnesium 1.8 mg/dL (1.6-2.6); Potassium 4.2 mmol/L (3.5-5.1); Protein, Total 6.9 g/dL (6.4-8.2); Sodium Level 140 mmol/L (136-145); Triglycerides 340 mg/dL; Uric Acid 4.2 mg/dL (3.5-7.2); Very Low Density Lipoprotein 68 mg/dL (5-40)
== END | disposition home or self-care (01) ==
LOC: LAB 09:53
PROVIDERS: PCP Family Medicine; Referring Provider Family Medicine; Visit Provider Family Medicine
DX: I10 Essential (primary) hypertension (principal); M10.9 Gout, unspecified; E61.1 Iron deficiency; E55.9 Vitamin D deficiency, unspecified
CPT/HCPCS: 80053; 80061; 81001; 82306; 82728; 83540; 83550; 83735; 84443; 84550; 85025

== ENCOUNTER 2024-04-24 08:00 | Outpatient (RCR) | payer SELFPAY ==
[2024-03-24 09:11] VITALS: BMI 36.5
== END 2024-05-01 23:59 ==
LOC: PR 08:00
PROVIDERS: PCP Family Medicine; Referring Provider Internal Medicine Critical Care Medicine; Visit Provider Internal Medicine Critical Care Medicine
DX: J44.9 Chronic obstructive pulmonary disease, unspecified (principal)

== ENCOUNTER 2024-05-27 08:00 | Outpatient (RCR) | payer OTHER, SELFPAY ==
[2024-03-24 09:11] VITALS: BMI 36.5
== END 2024-05-31 23:59 ==
LOC: PR 08:00
PROVIDERS: PCP Family Medicine; Referring Provider Internal Medicine Critical Care Medicine; Visit Provider Internal Medicine Critical Care Medicine
DX: J44.9 Chronic obstructive pulmonary disease, unspecified (principal)

== ENCOUNTER → 2024-06-10 | Outpatient (CLI) | payer OTHER, SELFPAY ==
[2024-03-24 09:11] VITALS: BMI 36.5
[2024-06-10 13:21] LABS: PSA,Total- Diagnostic < 0.01 ng/mL (0.0-4.0)
== END | disposition home or self-care (01) ==
LOC: LAB 10:26
PROVIDERS: PCP Family Medicine; Referring Provider Urology; Visit Provider Urology
DX: C61 Malignant neoplasm of prostate (principal)
CPT/HCPCS: 36415; 84153

== ENCOUNTER 2024-06-24 08:00 | Outpatient (RCR) | payer SELFPAY ==
[2024-03-24 09:11] VITALS: BMI 36.5
== END 2024-07-01 23:59 ==
LOC: PR 08:00
PROVIDERS: PCP Family Medicine; Referring Provider Internal Medicine Critical Care Medicine; Visit Provider Internal Medicine Critical Care Medicine
DX: Z00.00 Encounter for general adult medical examination without abnormal findings (principal)

== ENCOUNTER 2024-07-29 08:00 | Outpatient (RCR) | payer SELFPAY ==
[2024-03-24 09:11] VITALS: BMI 36.5
== END 2024-08-01 23:59 ==
LOC: PR 08:00
PROVIDERS: PCP Family Medicine; Referring Provider Internal Medicine Critical Care Medicine; Visit Provider Internal Medicine Critical Care Medicine
DX: Z00.00 Encounter for general adult medical examination without abnormal findings (principal)

== ENCOUNTER → 2024-08-04 | Outpatient (CLI) | payer OTHER, SELFPAY ==
[2024-03-24 09:11] VITALS: BMI 36.5
--- NOTE | 2024-08-04 18:48 | CT_ITS ---
PROCEDURE: SINUS/FACIAL BONE REASON FOR EXAM: Headaches. Right earache. COPD. TECHNIQUE: CT of the paranasal sinuses without contrast. COMPARISON: None. FINDINGS: Frontal: Opacification of the frontal sinuses. Ethmoid: Opacification of the ethmoid sinuses with resorption of the bony trabeculations. Sphenoid: Opacification of the sphenoid sinus. Maxillary: Opacification of the maxillary sinuses. There has been partial resection of the medial wall of the maxillary sinuses. Turbinates: There is soft tissue density within the nasal fossa extending into the retropharyngeal area suggestive of polyposis. Nasal Septum: Midline. No large nasal septal spur. Mastoids/Middle Ears: Osseous sclerosis of the right mastoid sinus. Visualized intracranial structures are unremarkable. CT/Sinus/Facial Bone IMPRESSION: Pansinusitis. Findings suggestive of nasal polyposis. One or more dose reduction techniques were used (e.g., Automated exposure contr ol, adjustment of the mA and/or kV according to patient size, use of iterative reconstruction technique). Reading Location: [place] [id number]
== END | disposition home or self-care (01) ==
PROVIDERS: PCP Family Medicine; Referring Provider Otolaryngology; Visit Provider Otolaryngology
DX: J33.9 Nasal polyp, unspecified (principal); J32.4 Chronic pansinusitis
CPT/HCPCS: 70486

== ENCOUNTER → 2024-08-07 | Outpatient (CLI) | payer OTHER, SELFPAY ==
[2024-03-24 09:11] VITALS: BMI 36.5
[2024-08-07 06:46] LABS: Bacteria 0 SEEN /hpf (None Seen); Mucous, Urine 0 SEEN /hpf (<or=2+); Squamous Epithelial Cells - UA 0 SEEN /hpf (0-5)
[2024-08-07 07:03] LABS: Absolute Lymphocyte Count 0.73 X10^3/uL (0.83-4.51); Absolute Neutrophil Count 2.8 X10^3/uL (2.0-7.7); Basophil# 0.01 X10^3/uL; Basophil% 0.2 % (0-1); Hemoglobin 10.3 g/dL (13.0-16.5); Lymphocyte # 0.73 X10^3/ul (0.83-4.51); Mean Corp Hgb Conc 33.2 g/dL (32-36); Mean Corpuscular Hgb 30.6 pg (27.0-32.0); Mean Platelet Vol. 8.9 fl (6.2-12.0); Monocyte# 0.46 X10^3/uL; Monocyte% 11.3 % (0-10); NRBC Flagged by Analyzer 0 % (0-5); Neutrophil # 2.83 X10^3/uL (2.7-7.7); Neutrophil % 69.8 % (47-70); Platelet Count 221 K/mm3 (150-450); RBC Distribution Width CV 12.8 % (11.6-14.6); RBC Distribution Width SD 42.6 fl (35.1-43.9); Red Blood Count 3.37 M/mm3 (4.6-6.2); White Blood Count 4.1 K/mm3 (4.4-11.0)
[2024-08-07 07:38] LABS: Color, Urine Yellow (Yellow); Glucose, Dipstick Normal (Normal); Ketone-Dipstick Negative (Negative); Leukocyte Esterase-Dipstick Negative /ul (Negative); Nitrite-Dipstick Negative (Negative); Occult Blood-Urine 10 /ul (Negative); Protein-Dipstick 15 mg/dl (Negative); Urine Bilirubin Dipstick Negative (Negative); Urine Clarity Clear (Clear); Urine Urobilinogen Normal (Normal); Urine pH 6.5 (5.0 - 8.0)
[2024-08-07 07:48] LABS: Red Blood Cells-Urine 0-5 SEEN /hpf (0-5); White Blood Cells 0-5 SEEN /hpf (0-5)
[2024-08-07 07:49] LABS: ALB/GLOB Ratio 0.8 RATIO (0.9-2.4); AST(SGOT) 16 U/L (15-37); Alanine Aminotransfer ALT/SGPT 25 U/L (16-61); Albumin, Serum 3.1 g/dL (3.2-5.0); Alkaline Phosphatase 81 U/L (45-117); Anion Gap 6 (5-15); BUN 17 mg/dL (7-18); BUN/Creat Ratio 17.9 RATIO (10-20); Chloride 105 mmol/L (98-107); Cholesterol 176 mg/dL (200); Creatinine, Serum 0.95 mg/dL (0.70-1.30); EST Glomerular Filtration Rate 85 mL/min (>60); Est Glom Filt Rate - Afr Amer 103 mL/min (>60); Globulin 3.7 g/dL (2.2-4.2); Glucose 115 mg/dL (74-106); High Density Lipoprotein 41 mg/dL; Magnesium 1.6 mg/dL (1.6-2.6); Potassium 4.2 mmol/L (3.5-5.1); Protein, Total 6.8 g/dL (6.4-8.2); Sodium Level 139 mmol/L (136-145); Triglycerides 402 mg/dL
[2024-08-07 08:45] LABS: Vitamin D,25 Hydroxy 27.3 ng/mL
== END | disposition home or self-care (01) ==
LOC: LAB 06:41
PROVIDERS: PCP Family Medicine; Referring Provider Family Medicine; Visit Provider Family Medicine
DX: I10 Essential (primary) hypertension (principal); E78.5 Hyperlipidemia, unspecified; E55.9 Vitamin D deficiency, unspecified
CPT/HCPCS: 36415; 80053; 80061; 81001; 82306; 83735; 85025

== ENCOUNTER 2024-08-28 08:00 | Outpatient (RCR) | payer SELFPAY ==
[2024-03-24 09:11] VITALS: BMI 36.5
== END 2024-08-29 23:59 ==
LOC: PR 08:00
PROVIDERS: PCP Family Medicine; Referring Provider Internal Medicine Critical Care Medicine; Visit Provider Internal Medicine Critical Care Medicine
DX: Z00.00 Encounter for general adult medical examination without abnormal findings (principal)

== ENCOUNTER 2024-09-09 07:56 | Day surgery (SDC) | payer OTHER, SELFPAY ==
[2024-03-24 09:11] VITALS: BMI 36.5
--- NOTE | 2024-08-28 07:49 | EKG12_ITS ---
Test Reason : PRE OP Blood Pressure : */* mmHG Vent. Rate : 63 BPM Atrial Rate : 63 BPM P-R Int : 82 ms QRS Dur : 82 ms QT Int : 416 ms P-R-T Axes : 67 35 49 degrees QTcB Int : 425 ms Sinus rhythm with short IA Otherwise normal ECG Confirmed by Jaren Jones ([id number]), assistant editor HEMANTH URIBE ([id number]) on 08/29/2024 5:58:15 AM Referred By: Immanuel Rodriguez Confirmed By: Jaren Jones
--- NOTE | 2024-08-28 22:18 | PAT.ANESEVAL ---
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 When Was Last Pacemaker Check QUESTION #4 FULL TEXT: You/Your Family Experience fever (hyperthermia) with Anesthesia Last Oral Intake Last Oral intake: Last Oral Intake NPO since Meds taken in AM with sips of water? Meds patient instructed to take am of surgery PONV PONV - metal sander and finisher: PONV - metal sander and finisher Female No 08/26/24 15:00 HX of Motion Sickness No 08/26/24 15:00 HX of N/V After Surgery No 08/26/24 15:00 Non-Smoker No 08/26/24 15:00 Duration of Surgery greater Yes 08/26/24 15:00 than 60 minutes Number of Risk Factors 1 08/26/24 15:00 PONV Score Low Risk 08/26/24 15:00 Height & Weight Height & Weight: Anesthesia: Height & Weight Height 5 ft 8 in 07/15/24 13:32 Respiratory Assessment Respiratory Assessment - metal sander and finisher: Respiratory Tract Infection Hx - metal sander and finisher Hx Respiratory Tract Infection No 08/26/24 15:00 STOP Sleep Apnea STOP Sleep Apnea - metal sander and finisher: STOP Sleep Apnea - metal sander and finisher Hx Hypertension Yes: CONTROLLED ON MED 08/26/24 15:00 Hx Sleep Apnea Yes 08/26/24 15:00 CPAP No 08/26/24 15:00 BIPAP Yes 08/26/24 15:00 Do you snore loudly (louder than talking or can be heard Do you often feel tired/ fatigued/ sleepy during daytime? Has anyone observed you stop breathing during sleep? STOP Results Positive 08/26/24 15:00 QUESTION #5 FULL TEXT : Do you snore loudly (louder than talking or can be heard through closed doors)? Tobacco Use History Tobacco Use History - metal sander and finisher: Tobacco Use History - metal sander and finisher Tobacco Use Smoking Status Never smoker 08/26/24 15:00 Hx Tobacco Use No 08/26/24 15:00 Years Smoking Packs Smoked per Day Smoking Cessation Date was within the last 15 years Hx Smoking Cessation Date Hx Smoking Cessation Counseling Hematologic Medial History Hematologic Hx - metal sander and finisher: Hematologic Medical Hx - twister in Hx of Blood Transfusion No 08/26/24 15:00 Hx of Transfusion in last 3 No 08/26/24 15:00 Months Date of Last Transfusion (if within last 3 months) Ever experience any problems No 08/26/24 15:00 with transfusion(s)? Specify any problems Hx of Preganancy in last 3 N/A 08/26/24 15:00 Months Nurse Filling Out Transfusion VCHRISTIN 08/26/24 15:00 & Questions: Date: 08/26/24 08/26/24 15:00 Time: 15:03 08/26/24 15:00 Patient unable to answer at this time (ie. confused, unrespo /Reproduction History /Reproductive History - metal sander and finisher: /Reproductive Hx- metal sander and finisher Hx Now No 08/26/24 15:00 Gestational Age (in weeks): EDC: Hx Hx Para Hx Section SAB No 08/26/24 15:00 [facility] Medical History (Updated 08/26/24 @ 15:00 by Aminah Lord) Shortness of breath on exertion Chronic cough Non-smoker Personal history of colonic polyps Encounter for education Anemia Wears glasses Cancer Anxiety Depression Alcohol use History of steroid therapy Gout History of renal disease Low iron High cholesterol Restless legs Former smoker BiPAP (biphasic positive airway pressure) dependence Sleep apnea COPD (chronic obstructive pulmonary disease) History of edema History of echocardiogram History of stress test Acute frontal sinusitis, unspecified Fracture Chronic neck and back pain Asthma Fatigue Arthritis HTN (hypertension) s/p fistulotomy GERD (gastroesophageal reflux disease) Diverticulosis [id number] HTN (hypertension) Home Medications ?Medication ?Instructions ?Recorded ?Last Taken ?Type allopurinol 300 mg tablet 300 mg PO QHS 05/16/17 10/01/23 21:00 History citalopram 20 mg tablet 20 mg PO QHS 05/16/17 10/01/23 History folic acid 0.8 mg capsule 0.8 mg PO QHS 05/16/17 10/01/23 History multivitamin 1 tab PO QHS 06/02/21 10/01/23 History zinc citrate 16.7 mg chewable 50 mg PO QHS 06/02/21 10/01/23 History tablet esomeprazole magnesium 40 mg 40 mg PO QHS 06/29/21 10/01/23 History capsule,delayed release atorvastatin 20 mg tablet 20 mg PO QHS 11/01/21 10/01/23 History benralizumab 30 mg/mL subcutaneous 30 mg subcut .[id number] 04/05/22 09/07/23 History syringe (Fasenra) fluticasone fur. 200 mcg-umeclid 1 inh inhalation QHS #3 ea 12/12/23 Unknown Rx 62.5 mcg-vilant 25 mcg inhalat.powder (Trelegy Ellipta) montelukast 10 mg tablet 10 mg PO QHS #90 tabs 03/18/24 Unknown Rx albuterol sulfate 90 mcg/actuation 1 puff inhalation Q6H PRN asthma 03/31/24 Unknown Rx aerosol inhaler #8.5 grams ipratropium 0.5 mg-albuterol 3 mg 3 ml inhalation Q4H PRN PRN SOB 04/07/24 Unknown Rx (2.5 mg base)/3 mL nebulization &/OR WHEEZING #180 mL soln azelastine 137 mcg-fluticasone 50 1 spray intranasal BID #23 grams 05/26/24 Unknown Rx mcg/spray nasal spray losartan 100 mg tablet 100 mg PO QDAY 07/15/24 Unknown History oxybutynin chloride 5 mg tablet 5 mg PO QHS 07/15/24 Unknown History cholecalciferol (vitamin D3) 50 50 mcg PO DAILY 08/26/24 Unknown History mcg (2,000 unit) capsule (Vitamin D3) Allergy/AdvReac Type Severity Reaction Status Date / Time NSAIDS (Non-Steroidal Allergy Severe Other Verified 08/26/24 14:49 Anti-Inflamma aspirin Allergy Anaphylaxis Verified 08/26/24 14:48 Cephalosporins Allergy Other Verified 08/26/24 14:48 nitroglycerin Allergy Other Verified 08/26/24 14:48 Family History Other Heart disease Kidney disease Surgical History (Updated 08/26/24 @ 15:00 by Aminah Lord) Hx of colonoscopy History of sinus surgery History of prostatectomy Hx of foot surgery History of tonsillectomy and adenoidectomy History of rectal polypectomy S/P colonoscopy Social History Smoking Status: Never smoker second hand exposure: No alcohol intake: current Alcohol type: beer substance use type: former substance user Date of last use: Quit using cocaine 1986, used for about 10 years Audit: Pertinent Findings Pertinent Findings EKG Perinent findings: April 10, 2022. Normal sinus rhythm. Stress test pertinent findings: June 30, 2022. Ejection fraction 60%. No changes considered diagnostic for induced myocardial ischemia. Echo (EF%) pertinent findings: December 27, 2020. Ejection fraction 60%. PA systolic pressure is 33 mmHg. No aortic stenosis is noted. Pulmonary function results/spirometer pertinent findings: August 29, 2021. Irreversible moderately severe large airway obstructive ventilatory defect with relatively preserved diffusing capacity resulting in air trapping. Recommendation Anesthesia Recommendation Anesthesia recommendation: OPTIMIZED for anesthesia
[2024-09-09] VITALS (10 sets, daily range): BP systolic 147–175; BP diastolic 77–84; PULSE 74–98; RESP 16; TEMP 36.3–36.5; O2SAT 83–95; BMI 36.5
--- NOTE | 2024-09-09 | ETH_PTH ---
PATIENT: HAWK ZAYAS LOC: [facility] [place][id number] AGE/SX: 64/M ROOM: RE09/09/[address]: Dr. Immanuel Rodriguez MD : 1960 BED: DIS: 09/09/2024 SPEC #: [id number] RECD: 09/09/24 12:24 STATUS: CRUZ HOME #: [id number] REID: 09/09/24 00:[address]: Immanuel Rodriguez DEPT: SURGICAL PATHOLOGY RECD BY: Eric Johns ENTERED: 09/09/24 12:25 SP TYPE: ETH TISS OTHR DR: Dr. Justin Arita MD Tissues: A - Ethmoid sinus, NOS B - Ethmoid sinus, NOS Procedures: Surgery Specimen Level IV HEADER OPERATION: Functional endoscopic sinus surgery, navigation PRE-OP DIAGNOSIS: Bilateral occlusive polyps, pansinusitis TISSUE SUBMITTED: A- Left nasal sinus contents, B- Right nasal sinus contents MICROSCOPIC DIAGNOSIS A: LEFT NASAL SINUS CONTENTS, DEBRIDEMENT: Nasal mucosa with respiratory epithelium containing neutrophils and a dense stroma with blood vessels most consistent with an inflammatory nasal polyp (See Comment) B: RIGHT NASAL SINUS CONTENTS, DEBRIDEMENT: Nasal mucosa with respiratory epithelium containing neutrophils and a dense stroma with blood vessels most consistent with an inflammatory nasal polyp (See Comment) Sofia Knutson M.D., 09/15/[address] Lopez has reviewed the slides and agrees with the diagnosis. MICROSCOPIC DESCRIPTION Slides are reviewed. GROSS DESCRIPTION A: The specimen is received in one container labeled with the patient's name and designated left nasal sinus contents. The specimen consists of multiple fragments of greatest larson soft tissue measuring in aggregate 2.5 x 1.2 x 0.3 cm. A 2 x 1.5 x 1 cm globule of white glistening mucoid material is also present. TE2. EH 09/10/24 Cassette summary: A1-soft tissue A2- mucoid material B: The specimen is received in one container labeled with the patient's name and designated right nasal sinus contents. The specimen consists of a small amount of larson-white soft tissue measuring in aggregate 2.5 x 1 x 0.5 cm. TE1. EH 09/10/24 CPT:67340t0, TC:2
[2024-09-09] MEDS: 0.9% Normal Saline (1000mL) 1,000 ML 15 ML IV (08:21)
--- NOTE | 2024-09-09 08:29 | PRE.ANES_ITS ---
ASA Classification* ASA Classification ASA Classification: 3 (On BIPAP for FREDERICK -- please ask surgeon to place nasal trumpet under visualization at end of surgery to prevent apnea ) Assessment & Plan Anesthesia* Anesthesia Assessment Anesthesia Assessment: Discussed sedation and/or anesthesia options, risks, benefits, and alternatives with patient/parents/legal guardian/POA. Questions invited. The patient/parents/legal guardian/POA seems to understand and agrees to proceed with anesthesia plan. Reviewed the physical assessment, medical history, allergy history and patient home medications list prior to surgery/procedure/anesthetic and documented any changes. Performed airway and anesthesia risk assessments. Anesthesia Type Anesthesia Type: General History Source History Obtained from:: Patient and Chart Anesthesia Focused Assessment* Temperature: 97.7 F Pulse Rate: 74 Blood Pressure: 159/84 Respiratory Rate: 16 Pulse Ox: 95 Oxygen Delivery Method: Room Air Airway Assessment Mouth opens: >3 cm Mallampati Score: III Teeth Condition: Chipped/Broken (right lower) Neck Range of motion (ROM): Full ROM Focused Labs Anesthesia Preop lab: CBC WBC 4.1 K/mm3 (4.4-11.0) L 08/07/24 06:44 08/07/24 RBC 3.37 M/mm3 (4.6-6.2) L 08/07/24 06:44 08/07/24 Hgb 10.3 g/dL (13.0-16.5) L 08/07/24 06:44 5 Hct 31.0 % (40-54) L 08/07/24 06:44 08/07/24 Plt Count 221 K/mm3 (150-450) 08/07/24 06:44 08/07/24 CHEMISTRY Potassium 4.2 mmol/L (3.5-5.1) 08/07/24 06:44 08/07/24 Sodium 139 mmol/L (136-145) 08/07/24 06:44 08/07/24 Magnesium 1.6 mg/dL (1.6-2.6) 08/07/24 06:44 08/07/24 BUN 17 mg/dL (7-18) 08/07/24 06:44 08/07/24 Creatinine 0.95 mg/dL (0.70-1.30) 08/07/24 06:44 08/07/24 Glucose 115 mg/dL (74-106) H 08/07/24 06:44 08/07/24 TSH 1.580 uIU/mL (0.358-3.740) 04/22/24 09:56 04/02 08/25 COAG PT 13.1 SECONDS (11.7-14.9) 04/10/22 14:22 Pre-Assessment Diagnosis/Proposed Procedure Planned Operative Procedure(s): Functional Endoscopoic Sinus Surgery Anesthesia History Anesthesia History - surgical coordinator: Anesthesia History - surgical coordinator Hx Hospitalization No 08/26/24 15:00 Any Problems With Anesthesia No 08/26/24 15:00 Cholinesterase deficiency No 08/26/24 15:00 You/Your Family Experience No 08/26/24 15:00 fever (hyperthermia) with Relationship Recent Exposure to Contagious No 09/09/24 08:19 Disease Does patient have nerve No 08/26/24 15:00 stimulator Patient instructed to have device shut off --Does patient have Pacemaker No 09/09/24 08:19 or ICD? When Was Last Pacemaker Check QUESTION #4 FULL TEXT: You/Your Family Experience fever (hyperthermia) with Anesthesia Any additional information?: No Last Oral Intake Last Oral intake: Last Oral Intake NPO since 00:00 09/09/24 08:19 Meds taken in AM with sips of No 09/09/24 08:19 water? Meds patient instructed to take am of surgery Any additional information?: No PONV PONV - surgical coordinator: PONV - surgical coordinator Female No 08/26/24 15:00 HX of Motion Sickness No 08/26/24 15:00 HX of N/V After Surgery No 08/26/24 15:00 Non-Smoker No 08/26/24 15:00 Duration of Surgery greater Yes 08/26/24 15:00 than 60 minutes Number of Risk Factors 1 08/26/24 15:00 PONV Score Low Risk 08/26/24 15:00 Any additional information?: No Height & Weight Height & Weight: Anesthesia: Height & Weight Height 5 ft 8 in 09/09/24 08:19 Weight: 109 kg 09/09/24 08:19 Body Mass Index (BMI) 36.5 09/09/24 08:19 Respiratory Assessment Respiratory Assessment - surgical coordinator: Respiratory Tract Infection Hx - surgical coordinator Hx Respiratory Tract Infection No 08/26/24 15:00 Any additional information?: No STOP Sleep Apnea STOP Sleep Apnea - surgical coordinator: STOP Sleep Apnea - surgical coordinator Hx Hypertension Yes: CONTROLLED ON MED 09/01/24 13:06 Hx Sleep Apnea Yes 08/26/24 15:00 CPAP No 09/01/24 13:06 BIPAP Yes 09/01/24 13:06 Do you snore loudly (louder than talking or can be heard Do you often feel tired/ fatigued/ sleepy during daytime? Has anyone observed you stop breathing during sleep? STOP Results Positive 08/26/24 15:00 QUESTION #5 FULL TEXT : Do you snore loudly (louder than talking or can be heard through closed doors)? 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 Specify any problems Hx of Preganancy in last 3 N/A 08/26/24 15:00 Months Nurse Filling Out Transfusion VCHRISTIN 08/26/24 15:00 & Questions: Date: 08/26/24 08/26/24 15:00 Time: 15:03 08/26/24 15:00 Patient unable to answer at this time (ie. confused, unrespo Any additional information?: No /Reproduction History /Reproductive History - surgical coordinator: /Reproductive Hx- surgical coordinator Hx Now No 08/26/24 15:00 Gestational Age (in weeks): EDC: Hx Hx Para Hx Section SAB No 08/26/24 15:00 Any additional information?: No Active Medications Active Medications: Current Medications Generic Name Dose Route Start Last Admin Trade Name Freq PRN Reason Stop Dose Admin Clindamycin Phosphate 900 mg in 50 mls @ 75 mls/hr 09/09/24 09:25 Cleocin IV 09/09/24 10:04 PREOP ONE Sodium Chloride 1,000 mls @ 15 mls/hr 09/09/24 08:10 09/09/24 08:21 IV 09/14/24 21:29 15 mls/hr .Q48H BENEDICT Administration Protocol [facility] Medical History Shortness of breath on exertion Chronic cough Non-smoker Personal history of colonic polyps Encounter for education Anemia Wears glasses Cancer Anxiety Depression Alcohol use History of steroid therapy Gout History of renal disease Low iron High cholesterol Restless legs Former smoker BiPAP (biphasic positive airway pressure) dependence Sleep apnea COPD (chronic obstructive pulmonary disease) History of edema History of echocardiogram History of stress test Acute frontal sinusitis, unspecified Fracture Chronic neck and back pain Asthma Fatigue Arthritis HTN (hypertension) s/p fistulotomy GERD (gastroesophageal reflux disease) Diverticulosis Agsoyek-lk-imm HTN (hypertension) Home Medications ?Medication ?Instructions ?Recorded ?Last Taken ?Type allopurinol 300 mg tablet 300 mg PO QHS 05/16/1709/08 History citalopram 20 mg tablet 20 mg PO QHS 05/16/17 History folic acid 0.8 mg capsule 0.8 mg PO QHS 05/16/1709/08 History multivitamin 1 tab PO QHS 06/02/21 History zinc citrate 16.7 mg chewable 50 mg PO QHS 06/02/21 History tablet esomeprazole magnesium 40 mg 40 mg PO QHS 06/29/2104/25 History capsule,delayed release atorvastatin 20 mg tablet 20 mg PO QHS 11/01/21 History benralizumab 30 mg/mL subcutaneous 30 mg subcut .[id number] [place] 04/05/22 09/07/23 History syringe (Fasenra) fluticasone fur. 200 mcg-umeclid 1 inh inhalation QHS #3 ea 12/12/23 09/08/24 Rx 62.5 mcg-vilant 25 mcg inhalat.powder (Trelegy Ellipta) montelukast 10 mg tablet 10 mg PO QHS #90 tabs 09/08/24 Rx albuterol sulfate 90 mcg/actuation 1 puff inhalation Q 6H PRN asthma 03/31/24 Unknown Rx aerosol inhaler #8.5 grams ipratropium 0.5 mg-albuterol 3 mg 3 ml inhalation Q4H PRN PRN SOB 04/07/24 Unknown Rx (2.5 mg base)/3 mL nebulization &/OR WHEEZING #180 mL soln azelastine 137 mcg-fluticasone 50 1 spray intranasal B ID #23 grams 05/26/24 Unknown Rx mcg/spray nasal spray losartan 100 mg tablet 100 mg PO QDAY 07/15/2408/30 History oxybutynin chloride 5 mg tablet 5 mg PO QHS 07/15/24 0 09/08/24 History cholecalciferol (vitamin D3) 50 50 mcg PO DAILY 09/08/24 History mcg (2,000 unit) capsule (Vitamin D3) Allergy/AdvReac Type Severity Reaction Status Date / Time NSAIDS (Non-Steroidal Allergy Severe Other Verified 09/09/24 08:17 Anti-Inflamma aspirin Allergy Anaphylaxis Verified 09/09/24 08:17 Cephalosporins Allergy Other Verified 09/09/24 08:17 nitroglycerin Allergy Other Verified 09/09/24 08:17 Family History Other Heart disease Kidney disease Surgical History Hx of colonoscopy History of sinus surgery History of prostatectomy Hx of foot surgery History of tonsillectomy and adenoidectomy History of rectal polypectomy S/P colonoscopy Social History Smoking Status: Never smoker second hand exposure: No alcohol intake: current Alcohol type: beer substance use type: former substance user Date of last use: Quit using cocaine 1986, used for about 10 years Addt'l Information Additional Findings: EKG reviewed Review of Systems (Anesthesia) ROS Narrative System reviewed and no additional complaints, except as documented. Physical Exam Const alert and oriented x3 Resp normal respiratory effort, normal air movement and clear to auscultation bilaterally Cardio regular rate, regular rhythm, no murmurs and diaphoretic
[2024-09-09] MEDS: Clindamycin 900 MG/50 ML BAG 75 MG IV (10:01)
[2024-09-09] MEDS: Oxymetazoline 0.05% 1 SPRAY SPRAY.BTL 15 SPRAY (10:27)
[2024-09-09] MEDS: Lidocaine 1% /Epi 1:100 (20ml) 20 ML Vial (11:07)
--- NOTE | 2024-09-09 11:42 | DCINST_ITS ---
Discharge Instructions Diet Discharge Diet: No restrictions DC O2, CPAP, BIPAP needs Home O2 Discharge instructions: No Dressing / Incision Discharge Activity: Return to Normal Activity Dressing / Incision Call your doctor if your incision/area has: Sudden Increased Bleeding Follow Up Care Please Follow Up With: Immanuel Rodriguez MD When: 1 week Test Results: Test results from this visit will be discussed in further detail at your follow- up appointment, if applicable. Discharge Plan Admission Attending Provider: Immanuel Rodriguez Primary Care Provider: Justin Arita Instructions Print Language: Sinhala Discharge Orders/Prescriptions Prescriptions: No Action multivitamin Tablet 1 tab PO QHS zinc citrate 16.7 mg tablet,chewable 50 mg PO QHS atorvastatin 20 mg tablet 20 mg PO QHS oxybutynin chloride 5 mg tablet 5 mg PO QHS losartan 100 mg tablet 100 mg PO QDAY citalopram 20 MG tablet 20 mg PO QHS Patient Comments: DEPRESSION allopurinol 300 MG tablet 300 mg PO QHS Patient Comments: GOUT folic acid 0.8 MG capsule 0.8 mg PO QHS esomeprazole magnesium 40 mg capsule,delayed release(DR/EC) 40 mg PO QHS Patient Comments: REFLUX Fasenra 30 mg/mL syringe 30 mg subcut .[id number] Rx Instructions: EVERY 8 WEEKS cholecalciferol (vitamin D3) [Vitamin D3] 50 mcg (2,000 unit) capsule 50 mcg PO DAILY Trelegy Ellipta 200-62.5-25 mcg blister with device 1 inh inhalation QHS Qty: 3 3RF montelukast 10 mg tablet 10 mg PO QHS Qty: 90 3RF albuterol sulfate 90 mcg/actuation HFA aerosol inhaler 1 puff inhalation Q6H PRN (Reason: asthma) Qty: 8.5 6RF ipratropium-albuterol 0.5 mg-3 mg(2.5 mg base)/3 mL solution for nebulization 3 ml inhalation Q4H PRN PRN (Reason: SOB &/OR WHEEZING) Qty: 180 6RF azelastine-fluticasone 137-50 mcg/spray spray,non-aerosol 1 spray intranasal BID Qty: 23 6RF Rx Instructions: administer into each nostril Referrals / Follow Up: Justin Arita MD [Primary Care Provider] - Disposition Disposition (needs filled in before D/C Order can be placed): Home, Self Care
--- NOTE | 2024-09-09 11:43 | PCM.OPRPT ---
Problems Associated Problem List Diagnoses (1) Chronic pansinusitis: (2) Sinusitis with nasal polyps: Operative Report (Standard) Operative Information Date of Procedure: 09/09/24 Pre-Operative Diagnosis: 1. chronic pansinusitis 2. sinonasal polyposis Post-Operative Diagnosis: 1. chronic pansinusitis 2. sinonasal polyposis Surgery/Procedure Performed: 1. endoscopic maxillary antrostomy with removal of contents, right and left 2. endoscopic total ethmoidectomy, right and left 3. endoscopic sphenoidotomy with removal of contents, right and left 4. endoscopic frontal sinus exploration removal of contents, right and left 5. Extensive removal sinonasal polyps, right and left 6. 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 Type of Anesthesia: General RN Documented Start/Stop Times: Operation Date: 09/09/24 09:25 Case Time Into Pre-Op 09/09/24 08:02 Out of Pre-Op 09/09/24 10:00 Anesthesia Start 09/09/24 10:01 Into Room 09/09/24 10:01 Procedure Start 09/09/24 10:27 Procedure End 09/09/24 11:33 Anesthesia End 09/09/24 11:40 Out of Room 09/09/24 11:40 Procedure Start Time: 10:00 Procedure Stop Time: 11:47 Select all DRAINS/GRAFTS/IMPLANTS that apply: None Estimated Blood Loss: 5cc Specimen collected: Yes Description of specimen(s) removed: bilateral sinonasal contents Description of surgery: On the day of the procedure, after appropriate informed consent was obtained, the patient was brought to the operating room and placed in a supine position on the operating room table. The patient was placed under general endotracheal anesthesia by the anesthesiologist. The endotracheal tube was secured.? image guidance navigation was set up on the face and accuracy was confirmed.? the nose was injected with lidocaine/epinephrine and decongested with oxymetazoline-soaked pledgets the zero degree endoscope was used to evaluate the left nasal cavity.? the previously operated sinonasal cavities and extensive amount of bilateral occlusive polyps were injected with lidocaine/epinephrine.? the left nasal cavity was evaluated.? extensive polyps were removed using the microdebrider from the middle meatus, ethmoid chambers, sphenoethmoidal recess and frontal recess.? a revision maxillary antrostomy and uncinectomy were performed with the microdebrider.? the antrostomy was widened with a back-biter.? purulent material was evacuated along with polyps.? a revision total ethmoidectomy was performed with a curette and an upgoing blakesley, and finished with the microdebrider this was taken superiorly to the skull base and laterally to the lamina.? a stankewicz maneuver was performed and no laminar defect was noted.? the natural sphenoid os was widened with the microdebrider and contents were evacuated.? fungus and polyps were removed from the sphenoethmoidal recess.? the frontal recess was explored and polyps and fungus were evacuated.? hemostasis was achieved with suction cautery; jeronimo was placed. the right nasal cavity was evaluated.? the zero degree endoscope was used to evaluate the right nasal cavity.? the previously operated sinonasal cavities and extensive amount of bilateral occlusive polyps were injected with lidocaine/epinephrine.? the left nasal cavity was evaluated.? extensive polyps were removed using the microdebrider from the middle meatus, ethmoid chambers, sphenoethmoidal recess and frontal recess.? a revision maxillary antrostomy and uncinectomy were performed with the microdebrider.? the antrostomy was widened with a back-biter.? purulent material was evacuated along with polyps.? a revision total ethmoidectomy was performed with a curette and an upgoing blakesley, and finished with the microdebrider this was taken superiorly to the skull base and laterally to the lamina.? a stankewicz maneuver was performed and no laminar defect was noted.? the natural sphenoid os was widened with the microdebrider and contents were evacuated.? fungus and polyps were removed from the sphenoethmoidal recess.? the frontal recess was explored and polyps and fungus were evacuated.? hemostasis was achieved with suction cautery; jeronimo was placed. the right nasal cavity was evaluated.? a nasogastric tube was inserted orally and contents were evacuated.? the table was rotated 90 degrees toward the anesthesiologist and? was subsequently extubated uneventfully.? he was transferred to the PACU in stable condition. Surgical Findings: n/s Complications Complications: No
--- NOTE | 2024-09-09 11:47 | PCM.POST.ANE ---
Anesthesia: Postop Eval I Current Vital Signs Temperature: 97.3 F Pulse Rate: 95 Blood Pressure: 170/80 Respiratory Rate: 16 Pulse Ox: 94 Oxygen Delivery Method: Nasal Cannula Oxygen Flow Rate (L/min): 2 Assessment Airway patent: Yes Spontaneous unlabored respirations: Yes Mental status: Awake and Calm nausea: No Vomiting: No Anesthesia Complication: No Fluid Hydration Crystalloid volume administer (ml): 1,200 Total IV fluid infused: 1,200 Progress Note Anesthesia document: Postop Eval 1 completed: Yes
--- NOTE | 2024-09-09 12:57 | POSTOPAN2_ITS ---
Anesthesia Postop Eval I Sum Postop Eval Completion status Anesthesia document: Postop Eval 1 completed: Yes Anesthesia Postop Eval I Summary Anesthesia Postop Eval I Summary: Anesthesia Postop Eval I: Assessment Summary Airway patent Yes 09/09/24 11:48 [email or web address] Spontaneous unlabored Yes 09/09/24 11:48 [email or web address] respirations Mental status Awake,Calm 09/09/24 11:48 [email or web address] nausea No 09/09/24 11:48 [email or web address] Vomiting No 09/09/24 11:48 [email or web address] Anesthesia Postop Eval I: Fluid Summary Crystalloid volume administer 1,200 09/09/24 11:48 [employer] (ml) Colloids volume administered ( ml) Blood Product volume administered (ml) Total IV fluid infused 1,200 09/09/24 11:48 [employer] Anesthesia Postop Eval I: Summary Notes Anesthesia Complication No 09/09/24 11:48 [employer] Anesthesia Complication Comment: Post-operative progress note Anesthesia: Postop Eval II Evaluation Mental status: Awake Pain Level: 0 nausea: No Vomiting: No Complications Anesthesia Complication: No
--- NOTE | 2024-09-09 12:57 | PCM.POSTANE2 ---
Anesthesia Postop Eval I Sum Postop Eval Completion status Anesthesia document: Postop Eval 1 completed: Yes Anesthesia Postop Eval I Summary Anesthesia Postop Eval I Summary: Anesthesia Postop Eval I: Assessment Summary Airway patent Yes 09/09/24 11:48 [email or web address] Spontaneous unlabored Yes 09/09/24 11:48 [employer] respirations Mental status Awake,Calm 09/09/24 11:48 [employer] nausea No 09/09/24 11:48 [employer] Vomiting No 09/09/24 11:48 [employer] Anesthesia Postop Eval I: Fluid Summary Crystalloid volume administer 1,200 09/09/24 11:48 [employer]GD[employer] (ml) Colloids volume administered ( ml) Blood Product volume administered (ml) Total IV fluid infused 1,200 09/09/24 11:48 [employer] Anesthesia Postop Eval I: Summary Notes Anesthesia Complication No 09/09/24 11:48 [employer] Anesthesia Complication Comment: Post-operative progress note Anesthesia: Postop Eval II Evaluation Mental status: Awake Pain Level: 0 nausea: No Vomiting: No Complications Anesthesia Complication: No
== END 2024-09-09 13:00 | disposition home or self-care (01) ==
LOC: SDC 07:56 → AC 07:58
PROVIDERS: PCP Family Medicine; Referring Provider Otolaryngology; Visit Provider Otolaryngology
PROC: (CPT 31255; principal; 2024-09-09 08:55)
DX: J32.4 Chronic pansinusitis (principal); J44.9 Chronic obstructive pulmonary disease, unspecified; J33.9 Nasal polyp, unspecified; I10 Essential (primary) hypertension; K21.9 Gastro-esophageal reflux disease without esophagitis; J30.81 Allergic rhinitis due to animal (cat) (dog) hair and dander; Z79.51 Long term (current) use of inhaled steroids; Z79.899 Other long term (current) drug therapy; Z87.891 Personal history of nicotine dependence
CPT/HCPCS: 31255; 31267; 30115; 00160; 88305; 93005; J2405

== ENCOUNTER 2024-09-25 08:00 | Outpatient (RCR) | payer OTHER, SELFPAY ==
[2024-03-24 09:11] VITALS: BMI 36.5
== END 2024-09-29 23:59 ==
LOC: PR 08:00
PROVIDERS: PCP Family Medicine; Referring Provider Internal Medicine Critical Care Medicine; Visit Provider Internal Medicine Critical Care Medicine
DX: Z00.00 Encounter for general adult medical examination without abnormal findings (principal)

== ENCOUNTER 2024-10-09 08:00 | Outpatient (RCR) | payer SELFPAY ==
[2024-03-24 09:11] VITALS: BMI 36.5
== END 2024-10-29 23:59 ==
LOC: PR 08:00
PROVIDERS: PCP Family Medicine; Referring Provider Internal Medicine Critical Care Medicine; Visit Provider Internal Medicine Critical Care Medicine
DX: Z00.00 Encounter for general adult medical examination without abnormal findings (principal)

== ENCOUNTER 2024-10-15 10:27 | Emergency (ER) | payer OTHER, SELFPAY ==
[2024-03-24 09:11] VITALS: BMI 36.5
[2024-10-15 10:27] VITALS: BP 107/93; PULSE 100; RESP 20; TEMP 37.1; O2SAT 95; BMI 36.3
--- NOTE | 2024-10-15 10:59 | EX.ED.DYSGE1 ---
HPI <WILLY Floyd - Last Filed: 10/15/24 11:03> History of Present Illness Chief Complaint: Cellulitis Narrative Narrative: Patient is a 64-year-old male with history of asthma, chronic sinusitis. Patient states that on September 09, he did have a sinus surgery. He had a scraping with some cleanout. Patient's ever since then has been dealing with infection. Pay states that he has some drainage from the gumline where they made incision. He was on Augmentin last finished was 2 weeks ago. Today, he states that he has more swelling to his face, he has a nasty taste in his mouth, is also having some increased pain. He does have an appointment with his ENT on Sunday, he was hoping to have some antibiotics as well as some pain relief. Denies any fever or chills. PFSH <WILLY Floyd - Last Filed: 10/15/24 11:03> [facility] Medical History Shortness of breath on exertion Chronic cough Non-smoker Personal history of colonic polyps Encounter for education Anemia Wears glasses Cancer Anxiety Depression Alcohol use History of steroid therapy Gout History of renal disease Low iron High cholesterol Restless legs Former smoker BiPAP (biphasic positive airway pressure) dependence Sleep apnea COPD (chronic obstructive pulmonary disease) History of edema History of echocardiogram History of stress test Acute frontal sinusitis, unspecified Fracture Chronic neck and back pain Asthma Fatigue Arthritis HTN (hypertension) s/p fistulotomy GERD (gastroesophageal reflux disease) Diverticulosis [id number] HTN (hypertension) Home Medications ?Medication ?Instructions ?Recorded ?Last Taken ?Type allopurinol 300 mg tablet 300 mg PO QHS 05/16/17 09/08/24 History citalopram 20 mg tablet 20 mg PO QHS 05/16/17 09/08/24 History folic acid 0.8 mg capsule 0.8 mg PO QHS 05/16/17 09/08/24 History multivitamin 1 tab PO QHS 06/02/21 09/08/24 History zinc citrate 16.7 mg chewable 50 mg PO QHS 06/02/21 09/08/24 History tablet esomeprazole magnesium 40 mg 40 mg PO QHS 06/29/21 09/08/24 History capsule,delayed release atorvastatin 20 mg tablet 20 mg PO QHS 11/01/21 09/08/24 History benralizumab 30 mg/mL subcutaneous 30 mg subcut .[id number] 04/05/22 09/07/23 History syringe (Fasenra) fluticasone fur. 200 mcg-umeclid 1 inh inhalation QHS #3 ea 12/12/23 09/08/24 Rx 62.5 mcg-vilant 25 mcg inhalat.powder (Trelegy Ellipta) montelukast 10 mg tablet 10 mg PO QHS #90 tabs 03/18/24 09/08/24 Rx albuterol sulfate 90 mcg/actuation 1 puff inhalation Q6H PRN asthma 03/31/24 Unknown Rx aerosol inhaler #8.5 grams ipratropium 0.5 mg-albuterol 3 mg 3 ml inhalation Q4H PRN PRN SOB 04/07/24 Unknown Rx (2.5 mg base)/3 mL nebulization &/OR WHEEZING #180 mL soln azelastine 137 mcg-fluticasone 50 1 spray intranasal BID #23 grams 05/26/24 Unknown Rx mcg/spray nasal spray losartan 100 mg tablet 100 mg PO QDAY 07/15/24 09/08/24 History oxybutynin chloride 5 mg tablet 5 mg PO QHS 07/15/24 09/08/24 History cholecalciferol (vitamin D3) 50 50 mcg PO DAILY 08/26/24 09/08/24 History mcg (2,000 unit) capsule (Vitamin D3) doxycycline hyclate 100 mg capsule 100 mg PO BID 10 days #20 caps 10/15/24 Unknown Rx hydrocodone-acetaminophen 5-325mg 1 tab PO Q4H PRN pain 3 days #14 10/15/24 Unknown Rx 5mg-325mg tabs Allergy/AdvReac Type Severity Reaction Status Date / Time NSAIDS (Non-Steroidal Allergy Severe Other Verified 10/15/24 10:29 Anti-Inflamma aspirin Allergy Anaphylaxis Verified 10/15/24 10:29 Cephalosporins Allergy Other Verified 10/15/24 10:29 nitroglycerin Allergy Other Verified 10/15/24 10:29 Family History Other Heart disease Kidney disease Surgical History Hx of colonoscopy History of sinus surgery History of prostatectomy Hx of foot surgery History of tonsillectomy and adenoidectomy History of rectal polypectomy S/P colonoscopy Social History Smoking Status: Never smoker second hand exposure: No alcohol intake: current Alcohol type: beer substance use type: former substance user Date of last use: Quit using cocaine 1986, used for about 10 years ROS <WILLY Floyd - Last Filed: 10/15/24 11:03> ROS ED ROS Narrative Constitutional: Negative for fever, chills, weight loss, weakness Eyes: Negative for vision loss, vision change, double vision ENT: Negative for any sore throat, ear pain. Positive for sinus congestion, facial pain, facial redness Cardiovascular: Negative for any chest pain, tightness, palpitations Respiratory: Negative for any cough, sputum production, hemoptysis, dyspnea, dyspnea on exertion, orthopnea Gastrointestinal: Negative for any abdominal pain, nausea, vomiting, diarrhea, constipation, blood in stool, blood in vomit : Negative for any urinary frequency, dysuria, retention, blood in urine Muscle skeletal: Negative for any neck pain, back pain Neurological: Negative for any headache, syncope, dizziness Skin: Negative for any rashes, itching, abrasions, lacerations Psychiatric: Negative for any depression, anxiety, stress, suicidal ideation, homicidal ideation Hematologic: Negative for any excessive bruising, easy bleeding EXAM <WILLY Floyd - Last Filed: 10/15/24 11:03> Physical Exam Narrative Exam Narrative: Vital signs reviewed. HEET: Head normocephalic atraumatic, TMs clear bilaterally. Posterior pharynx is clear, moist mucous membranes. Nares clear bilaterally. Patient does have some erythema, some edema to the right cheek area. I did look at the patient's oral airway which is clear, patient's gumline to the right upper gumline does appear slightly erythematous, there is no drainable abscess.I did not appreciate any gross drainage. Neck: Supple with no lymphadenopathy or tenderness. No signs of meningismus. Cardiac: Regular rate and rhythm no murmurs gallops or rubs, equal peripheral pulses bilaterally. Respiratory: Lungs clear to auscultation bilaterally. No chest tenderness. Abdomen: Soft, nontender, nondistended. No abdominal bruit or pulsatile masses. No hepatosplenomegaly Extremities: No peripheral edema, no signs of gross trauma or deformity. Active full range of motion of all extremities. Neuro: Cranial nerves II through XII intact, no focal neurological deficits. Skin: Clean dry and intact with no rash, purpura, petechiae, vesicles or pustules. Backs/flank: No CVA tenderness, no midline spinal tenderness, no deformity. Psych: Normal mood and affect. No SI, HI or acute psychosis. Const Vital Signs: 10/15/24 10:27 Temperature 98.8 F Temperature Source Oral Pulse Rate 100 Respiratory Rate 20 H Blood Pressure 107/93 H Blood Pressure Mean 97 Pulse Ox 95 Oxygen Delivery Method Room Air Positive well nourished and well developed General Appearance ED: well developed <Dr. Colton Pradhan MD - Last Filed: 10/15/24 11:07> Physical Exam Const Vital Signs: 10/15/24 10:27 Temperature 98.8 F Temperature Source Oral Pulse Rate 100 Respiratory Rate 20 H Blood Pressure 107/93 H Blood Pressure Mean 97 Pulse Ox 95 Oxygen Delivery Method Room Air MDM <WILLY Folyd - Last Filed: 10/15/24 11:03> [facility] Treatment and Re-Evaluation :: Differential diagnosis includes however is not limited to: Acute sinusitis, infection secondary to surgery, dental abscess, sinus abscess Patient appears generally well, vital signs are stable, patient is nontoxic-appearing. Presenting to the emergency department for complaints of pain to the right side of his face, concern for infection post sinus surgery. Patient is consistently following up with his ENT. Today, I do not see any significant deep tissue infection. I do not believe any imaging is necessary. Patient will be placed on doxycycline, as well as short course of [place]. He will keep his appoint with Dr. Rodriguez and is stable for discharge. He was given return precautions. He will take antibiotics until finished. All questions answered, stable for discharge <Dr. Colton Pradhan MD - Last Filed: 10/15/24 11:07> [facility] Narrative Medical decision making narrative: I have personally performed a face to face assessment of the patient and have reviewed the GABRIELA Note. I performed a substantive portion of the visit including all aspects of the following. My jack findings include: History is 64-year-old male status post recent clean patient recently developed a sinusitis/facial cellulitis. Treated with Augmentin out of his sinuses by Dr. Adrian Nolasco notes ENT. Which she finished and he got better. Now he is having recurrent right facial swelling and pain today. Denies any fever. No trouble swallowing or breathing. Exam is [well-appearing 64-year-old male. Vital signs are stable afebrile. Pulse ox 95% on room air no hypoxia. H EENT exam pupils round react light. Extra motions are intact. He has mild right-sided facial swelling. Tenderness. Redness or warmth. Able to open close his mouth. Dentition is unremarkable. Posterior pharynx normal. Neck nontender no lymphadenopathy. Trachea midline. Lungs clear to auscultation. Heart regular rhythm no murmur. Moving all 4 extremities. Nontender no edema.] Medical Decision Making [patient does not any imaging or labs. He was placed on doxycycline. [place] for pain. Outpatient follow-up.] Other additions or changes: [None] Discharge Plan Triage Chief Complaint: Cellulitis ED Midlevel Provider: Cholo Mercer ED Provider: Colton Pradhan Dx/Rx/DC Orders Clinical Impression: Cellulitis of face, History of acute sinusitis, History of sinus surgery Instructions: ED Cellulitis Prescriptions: New doxycycline hyclate 100 mg capsule 100 mg PO BID 10 Days Qty: 20 0RF hydrocodone-acetaminophen 5-325 mg tablet 1 tab PO Q4H PRN (Reason: pain) 3 Days Qty: 14 0RF No Action multivitamin Tablet 1 tab PO QHS zinc citrate 16.7 mg tablet,chewable 50 mg PO QHS atorvastatin 20 mg tablet 20 mg PO QHS oxybutynin chloride 5 mg tablet 5 mg PO QHS losartan 100 mg tablet 100 mg PO QDAY citalopram 20 MG tablet 20 mg PO QHS Patient Comments: DEPRESSION allopurinol 300 MG tablet 300 mg PO QHS Patient Comments: GOUT folic acid 0.8 MG capsule 0.8 mg PO QHS esomeprazole magnesium 40 mg capsule,delayed release(DR/EC) 40 mg PO QHS Patient Comments: REFLUX Fasenra 30 mg/mL syringe 30 mg subcut .[id number] Rx Instructions: EVERY 8 WEEKS cholecalciferol (vitamin D3) [Vitamin D3] 50 mcg (2,000 unit) capsule 50 mcg PO DAILY Trelegy Ellipta 200-62.5-25 mcg blister with device 1 inh inhalation QHS Qty: 3 3RF montelukast 10 mg tablet 10 mg PO QHS Qty: 90 3RF albuterol sulfate 90 mcg/actuation HFA aerosol inhaler 1 puff inhalation Q6H PRN (Reason: asthma) Qty: 8.5 6RF ipratropium-albuterol 0.5 mg-3 mg(2.5 mg base)/3 mL solution for nebulization 3 ml inhalation Q4H PRN PRN (Reason: SOB &/OR WHEEZING) Qty: 180 6RF azelastine-fluticasone 137-50 mcg/spray spray,non-aerosol 1 spray intranasal BID Qty: 23 6RF Rx Instructions: administer into each nostril Primary Care Provider: Justin Arita Referrals: Immanuel Rodriguez MD [Med Staff - Active Staff] - Keep Valery appointment Justin Arita MD [Primary Care Provider] - Activity Restrictions/Additional Instructions: The antibiotic doxycycline twice a day for 10 days. The pain medication [place] 1 pill every 4-6 hours as needed for pain. Plenty of fluids. Fiber. Stool softener as needed to prevent constipation. Follow-up with Dr. Nolasco with your upcoming scheduled appointment. Return if worse. Print Language: Danish Disposition Disposition: Home, Self Care
[2024-10-15] MEDS: oxyCODONE 5 MG Tablet PO (11:04)
[2024-10-15] MEDS: Doxycycline 100 MG CAPSULE PO (11:05)
== END 2024-10-15 11:07 | disposition home or self-care (01) ==
PROVIDERS: Emergency Provider Emergency Medicine; PCP Family Medicine; Visit Provider Emergency Medicine
DX: L03.211 Cellulitis of face (principal); J44.9 Chronic obstructive pulmonary disease, unspecified; G47.30 Sleep apnea, unspecified
CPT/HCPCS: 99283

== ENCOUNTER → 2024-10-17 | Outpatient (CLI) | payer OTHER, SELFPAY ==
[2024-03-24 09:11] VITALS: BMI 36.5
== END | disposition home or self-care (01) ==
LOC: LABSPEC 16:43
PROVIDERS: PCP Family Medicine; Referring Provider Otolaryngology; Visit Provider Otolaryngology
DX: J32.8 Other chronic sinusitis (principal)
CPT/HCPCS: 87070; 87077; 87186; 87205

== ENCOUNTER 2024-10-30 06:36 | Outpatient (RCR) | payer SELFPAY ==
[2024-03-24 09:11] VITALS: BMI 36.5
== END 2024-11-29 23:59 ==
LOC: PR 06:36
PROVIDERS: PCP Family Medicine; Referring Provider Internal Medicine Critical Care Medicine; Visit Provider Internal Medicine Critical Care Medicine
DX: Z00.00 Encounter for general adult medical examination without abnormal findings (principal)

== ENCOUNTER → 2024-11-13 | Outpatient (CLI) | payer OTHER, SELFPAY ==
[2024-03-24 09:11] VITALS: BMI 36.5
== END | disposition home or self-care (01) ==
LOC: PSN 07:06
PROVIDERS: PCP Family Medicine; Referring Provider Nurse Practitioner Acute Care; Visit Provider Nurse Practitioner Acute Care
DX: J44.9 Chronic obstructive pulmonary disease, unspecified (principal)
CPT/HCPCS: 94060; 94726; 94729

== ENCOUNTER → 2025-01-13 | Outpatient (CLI) | payer OTHER, SELFPAY ==
[2024-03-24 09:11] VITALS: BMI 36.5
[2025-01-13 14:11] LABS: Mucous, Urine 0 SEEN /hpf (<or=2+); Red Blood Cells-Urine 0 SEEN /hpf (0-5)
[2025-01-13 17:52] LABS: Color, Urine Yellow (Yellow); Glucose, Dipstick Normal (Normal); Hematocrit 34.9 % (40-54); Hemoglobin 11.4 g/dL (13.0-16.5); Immature Granulocytes Count 0.020 X10^3/uL (0.0-0.0); Ketone-Dipstick Negative (Negative); Leukocyte Esterase-Dipstick Negative /ul (Negative); Mean Corp Hgb Conc 32.7 g/dL (32-36); Mean Corpuscular Volume 94.6 fL (80-94); Mean Platelet Vol. 9.6 fl (6.2-12.0); NRBC Flagged by Analyzer 0 % (0-5); Nitrite-Dipstick Negative (Negative); Occult Blood-Urine 25 /ul (Negative); Platelet Count 214 K/mm3 (150-450); Protein-Dipstick 30 mg/dl (Negative); RBC Distribution Width CV 13.4 % (11.6-14.6); RBC Distribution Width SD 46.3 fl (35.1-43.9); Red Blood Count 3.69 M/mm3 (4.6-6.2); Specific Gravity, Urine 1.020 (1.002-1.030); Urine Bilirubin Dipstick Negative (Negative); White Blood Count 4.7 K/mm3 (4.4-11.0)
[2025-01-13 18:00] LABS: Squamous Epithelial Cells - UA 0-5 SEEN /hpf (0-5)
[2025-01-13 18:38] LABS: AST(SGOT) 21 U/L (<=37); Alanine Aminotransfer ALT/SGPT 27 U/L (<=46); Albumin, Serum 4.1 g/dL (3.4-4.8); Alkaline Phosphatase 83 U/L (40-129); Anion Gap 12 (5-15); BUN 18 mg/dL (4-19); BUN/Creat Ratio 16.2 RATIO (10-20); Calcium,Total 9.3 mg/dL (7.6-11.0); Carbon Dioxide 23.6 mmol/L (21.0-32.0); Chloride 102 mmol/L (98-108); Cholesterol 228 mg/dL (<=200); Ferritin 413 ng/mL (37-417); Globulin 2.7 g/dL (2.2-4.2); Glucose 112 mg/dL (70-99); Low Density Lipoprotein Calc. 74 mg/dL; Potassium 4.2 mmol/L (3.3-5.1); Triglycerides 530 mg/dL; Very Low Density Lipoprotein 106 mg/dL (5-40); Vitamin D,25 Hydroxy 37.3 ng/mL (30-100); cholesterol:hdl ratio screen 4.72
[2025-01-13 18:59] LABS: Iron 64 ug/dL (65-175); Iron Binding Capacity,Total 324 ug/dL (250-450); Iron Binding Capacity,Unsat 260 ug/dL (228-428); Magnesium 1.9 mg/dL (1.5-2.2); Uric Acid 5.0 mg/dL (3.5-7.2)
== END | disposition home or self-care (01) ==
LOC: MFPLAB 14:05
PROVIDERS: PCP Family Medicine; Visit Provider Family Medicine
DX: R73.9 Hyperglycemia, unspecified (principal); M10.9 Gout, unspecified; E55.9 Vitamin D deficiency, unspecified; E61.1 Iron deficiency; I10 Essential (primary) hypertension
CPT/HCPCS: 36415; 80053; 80061; 81001; 82306; 82728; 83036; 83540; 83550; 83735; 84443; 84550; 85025

== ENCOUNTER 2025-02-24 08:00 | Outpatient (RCR) | payer OTHER, SELFPAY ==
[2024-03-24 09:11] VITALS: BMI 36.5
== END 2025-03-01 23:59 ==
LOC: PR 08:00
PROVIDERS: PCP Family Medicine; Referring Provider Internal Medicine Critical Care Medicine; Visit Provider Internal Medicine Critical Care Medicine
DX: Z00.00 Encounter for general adult medical examination without abnormal findings (principal)

== ENCOUNTER 2025-03-31 08:00 | Outpatient (RCR) | payer SELFPAY ==
[2024-03-24 09:11] VITALS: BMI 36.5
== END 2025-03-31 23:59 ==
LOC: PR 08:00
PROVIDERS: PCP Family Medicine; Referring Provider Internal Medicine Critical Care Medicine; Visit Provider Internal Medicine Critical Care Medicine
DX: Z00.00 Encounter for general adult medical examination without abnormal findings (principal)

== ENCOUNTER 2025-04-30 08:00 | Outpatient (RCR) | payer SELFPAY ==
[2024-03-24 09:11] VITALS: BMI 36.5
== END 2025-05-01 23:59 ==
LOC: PR 08:00
PROVIDERS: PCP Family Medicine; Referring Provider Internal Medicine Critical Care Medicine; Visit Provider Internal Medicine Critical Care Medicine
DX: Z00.00 Encounter for general adult medical examination without abnormal findings (principal)

== ENCOUNTER 2025-05-21 08:00 | Outpatient (RCR) | payer SELFPAY ==
[2024-03-24 09:11] VITALS: BMI 36.5
== END 2025-05-31 23:59 ==
LOC: PR 08:00
PROVIDERS: PCP Family Medicine; Referring Provider Internal Medicine Critical Care Medicine; Visit Provider Internal Medicine Critical Care Medicine
DX: Z00.00 Encounter for general adult medical examination without abnormal findings (principal)

== ENCOUNTER 2025-06-30 08:00 | Outpatient (RCR) | payer SELFPAY ==
[2024-03-24 09:11] VITALS: BMI 36.5
== END 2025-07-01 23:59 ==
LOC: PR 08:00
PROVIDERS: PCP Family Medicine; Referring Provider Internal Medicine Critical Care Medicine; Visit Provider Internal Medicine Critical Care Medicine
DX: Z00.00 Encounter for general adult medical examination without abnormal findings (principal)